=== PATIENT | male | born 1995 | race Caucasian/White ===

== ENCOUNTER 2017-02-06 01:26 | Inpatient (IN) | payer MEDICAID, OTHER ==
[2017-02-06] MEDS ORDERED: LORazepam 2 MG/ML SYRINGE IM STA (03:27)
[2017-02-06] MEDS ORDERED: ZIPRASIDONE 20 MG VIAL IM STA (03:27)
--- NOTE | 2017-02-06 03:29 | ED ---
Psych HPI - General Chief Complaint: Psychiatric Symptoms Stated Complaint: Mental Health Time Seen by Provider: 02/06/17 01:51 Source: patient Mode of arrival: EMS Limitations: physical limitation (Patient not cooperative with history) - History of Present Illness Initial Comments: This patient is a 21-year-old man brought in by police to be evaluated for suicidal ideation. The patient had reportedly made suicidal statements and then not gone up on the roof of his home and spent the next 4 hours there. He had to be brought down by police. The patient here is confrontational and not forthcoming about the events. MD Complaint: suicidal ideation -: hour(s) Associated Psychiatric Symptoms: suicidal ideation Quality: constant - Related Data Home Medications Medication Instructions Recorded Confirmed No Known Home Medications [No 10/29/14 10/29/14 Known Home Medications] Allergies Allergy/AdvReac Type Severity Reaction Status Date / Time pertussis vaccine,adsorbed Allergy Unknown Verified 10/29/14 08:49 Review of Systems ROS Statement: Those systems with pertinent positive or pertinent negative responses have been documented in the HPI. ROS Other: All systems not noted in ROS Statement are negative. Limitations: ROS unobtainable due to patients medical condition Past Medical History Past Medical History: Asthma History of Any Multi-Drug Resistant Organisms: None Reported Past Surgical History: No Surgical Hx Reported Past Psychological History: No Psychological Hx Reported Smoking Status: Current every day smoker Past Alcohol Use History: Occasional Past Drug Use History: None Reported General Exam Limitations: no limitations General appearance: alert, in no apparent distress Head exam: Present: atraumatic, normocephalic Eye exam: Present: normal appearance. Absent: scleral icterus, conjunctival injection Respiratory exam: Present: normal lung sounds bilaterally. Absent: respiratory distress, wheezes, rales, rhonchi, stridor Cardiovascular Exam: Present: regular rate, normal rhythm, normal heart sounds. Absent: systolic murmur, diastolic murmur, rubs, gallop GI/Abdominal exam: Present: soft. Absent: distended, tenderness, guarding, rebound, mass Extremities exam: Absent: pedal edema Back exam: Present: normal inspection. Absent: CVA tenderness (R), CVA tenderness (L) Neurological exam: Present: alert, normal gait Skin exam: Present: warm, dry, intact, normal color, abrasion (Multiple abrasions to the torso) Course Vital Signs 02/06/17 01:30 Temperature 97.7 F Pulse Rate 85 Respiratory 16 Rate Blood Pressure 154/81 O2 Sat by Pulse 98 Oximetry Procedures - Restraint - Face to Face Restraint Occurrence 1 Patient's Immediate Situation: Endangers others' safety, Endangers staff safety , Violent behavior Patient's Reaction to the Intervention: Hostile, Belligerent, Aggressive Patient's Medical & Behavioral Condition: Awake, Agitated, Paranoid, Bizarre behavior Need to Continue or Terminate Restraint or Seclusion: Continue Face to Face Eval of Restraint Date: 02/06/17 Face to Face Eval of Restraint Time: 03:10 Disposition Clinical Impression: Psychosis, Suicidal ideation Disposition: ADMITTED IP TO THIS [facility] Condition: Fair
[2017-02-06] MEDS ORDERED: LORazepam 1 MG TAB PO PRN (09:22)
[2017-02-06] MEDS ORDERED: MAG HYDROX/AL HYDROX/SIMETH 30 ML CUP PO PRN (09:22)
[2017-02-06] MEDS ORDERED: ACETAMINOPHEN TAB 325 MG TAB PO PRN (09:22)
[2017-02-06] MEDS ORDERED: MAGNESIUM HYDROXIDE 2,400 MG/10 ML CUP PO PRN (09:22)
--- NOTE | 2017-02-06 13:24 | CONS ---
DATE OF CONSULTATION: HISTORY OF PRESENT ILLNESS: This is a 21-year-old male who was brought to the hospital by his father who found him on the roof wearing his underwear only. Patient was suicidal threat and was brought into the emergency department. Patient initial workup revealed normal findings. The patient was admitted to the psych floor. REVIEW OF SYSTEMS: Patient is very difficult to obtain any information. ALLERGIES: He said that he is allergic to PERTUSSIS VACCINE. MEDICATION: None. PAST SURGICAL HISTORY: Nothing. SOCIAL HISTORY: Patient denies smoking or alcohol abuse. Said that he smokes marijuana only. FAMILY HISTORY: Negative. PHYSICAL EXAMINATION: VITAL SIGNS: Reviewed and stable. LUNGS: Clear to auscultation bilaterally. HEART: Normal S1, S2. ABDOMEN: Soft, no tenderness, positive bowel sounds in all 4 quadrants. LOWER EXTREMITY: No edema. PSYCH: Alert, awake, following commands, poor historian. SKIN: No rash. NEURO: No focal deficit. Gait stable. IMAGING AND LABS: Reviewed. ASSESSMENT AND PLAN: 1. Psychosis. Will have psychiatrist evaluate the patient. 2. Marijuana, counseled regarding use and consult child protective services social worker.
--- NOTE | 2017-02-06 18:29 | P.HP ---
Psychiatric H&P - . H&P Date: 02/08/17 History & Physical: Allergies Allergy/AdvReac Type Severity Reaction Status Date / Time pertussis vaccine,adsorbed Allergy Unknown Verified 02/06/17 10:21 Vital Signs Temp 98.0 F 02/06/17 10:07 Pulse 76 02/06/17 10:07 Resp 18 02/06/17 10:07 BP 122/70 02/06/17 10:07 Pulse Ox 98 02/06/17 09:13 Intake & Output 02/05/17 02/06/17 02/06/17 18:59 06:59 18:59 Weight 69.541 kg Laboratory Last Values Urine Opiates Screen Not Detected (NotDetected) 02/06/17 08:50 Ur Oxycodone Screen Not Detected (NotDetected) 02/06/17 08:50 Urine Methadone Screen Not Detected (NotDetected) 02/06/17 08:50 Ur Propoxyphene Screen Not Detected (NotDetected) 02/06/17 08:50 Ur Barbiturates Screen Not Detected (NotDetected) 02/06/17 08:50 U Tricyclic Antidepress Not Detected (NotDetected) 02/06/17 08:50 Ur Phencyclidine Scrn Not Detected (NotDetected) 02/06/17 08:50 Ur Amphetamines Screen Not Detected (NotDetected) 02/06/17 08:50 U Methamphetamines Scrn Not Detected (NotDetected) 02/06/17 08:50 U Benzodiazepines Scrn Not Detected (NotDetected) 02/06/17 08:50 Urine Cocaine Screen Not Detected (NotDetected) 02/06/17 08:50 U Marijuana (THC) Screen Detected (NotDetected) H 02/06/17 08:50 02/06/17 18:05 IDENTIFYING DATA: 21-year-old single male patient. HPI: Patient admitted to the inpatient psychiatric unit [facility] on an involuntary basis. Petition was done by police shift commander stating "subject previously barricaded himself in his room with a knife and threatened to kill himself. subject stayed on roof in 40 weather for over 4 hours with barely any clothes. Said he was "staying until he dissolved into roof." Patient reports that yesterday he was on the roof. Says he wouldn't come down and his dad was there and then the police were there and they strapped him to a gurney and lowered him down the latter with the help of the fire department. Patient states that he was trying to meditate and waiting for sunrise. he relays that they said he was up there for 4 hours. He says he has done this more than a couple of previous times. When asked about stressors in life he says that there is no insulation in their house and it's really old. When I ask him regarding his mood lately he says "fine." When asked regarding depression he states that this happens all the time. When asked regarding in terms of thoughts of suicide he says the last time he made a statement about suicide was today. He says that he would do it if he really wanted to. He names off a bunch of ways that he could possibly do it on the unit but says that doesn't mean that he is going to. He relates that he told a family member that he would kill himself at 22 years old, makes reference to that being a lie but says if he doesn't get out of here before he's 22 it's not. In terms of barricaded himself in his room with a knife he says that was more than a year ago. Towards the end of session he inquires "what happens if I kill myself here." He denies any recent thoughts of harm to self or others, towards the end of the session does make a threatening type remark related to a staff who may have been involved in giving him an injection. Per chart history he was restrained in the emergency room and given injections for agitated behavior as well as threatening harm to staff and himself. He is placed on one-to-one precautions earlier today related to concerns regarding suicidal statements. PAST PSYCHIATRIC HISTORY: Patient states he's had more than one prior inpatient psychiatric admission. He says they didn't put him on medications but they give him injections. He does make reference to being treated for ADHD and receiving sleep medications in the past. PMH: History of asthma ALLERGIES: Pertussis vaccine MEDICATIONS: Tylenol when necessary, Maalox when necessary, Ativan when necessary, milk of magnesia when necessary, Geodon when necessary CHEMICAL DEPENDENCY HISTORY: Marijuana as often as he can, daily; shrooms not often. FAMILY PSYCHIATRIC HISTORY: Relays he doesn't care about their problems FAMILY CHEMICAL DEPENDENCY HISTORY: None known at this time SOCIAL HISTORY: He lives with his dad. Says he has 4 sisters and one brother. No current work or school. No current relationship. Says she's never been and does not have any children. Says he needs 2 credits to graduate from high school but is not looking at finishing it. MENTAL STATUS EXAM: He is alert and overall cooperative with the interview. He is seen with male one-to-one staff present. Regarding his mood he says "I want to fucking go home." His thought processes show some disorganization. He relates that he does hear his thoughts from the past and future. He denies any recent thoughts of harm to self or others, towards the end of the session he does make some references to suicide as above in HPI, he inquires "what happens if I kill myself here." He also made a threatening type remark related to a staff who may have been involved in giving him an injection. His insight is limited, judgment is impaired. Cognitively appears very grossly intact. I do not note any significant disorientation or memory disturbance. STRENGTHS/WEAKNESSES: Strengths-some support system; weaknesses-coping skills INTELLECTUAL FUNCTIONING: Average IMPRESSIONS: Unspecified psychotic disorder; rule out primary psychotic disorder versus any component of substance-induced; unspecified depressive disorder; cannabis use disorder; rule out hallucinogenic use disorder PLAN: Patient is admitted to the inpatient psychiatric unit [facility] involuntary basis. Second clinical cert done for involuntary commitment. Baseline laboratory workup will be done the patient and medical consultation will be ordered. I discussed psychotropic medication with the patient including Abilify and Zoloft which he refuses at this time. Discussed with him regarding giving further consideration to psychotropic medication use. We do have Ativan and Geodon ordered as needed. He will continue on a one to one at this time. We'll monitor regarding any thoughts of harm to self or others and monitor for any psychosis symptoms. Estimated length of stay is 7-10 days. Prognosis is guarded. We'll continue to cover this patient for Dr. York through the weekend and he will initiate care on Wednesday.
[2017-02-06] MEDS ORDERED: WATER FOR INJECTION, STERILE 10 ML IV ONE (23:34)
[2017-02-06] MEDS: ZIPRASIDONE 20 MG VIAL IM PRN (23:35)
[2017-02-06] MEDS: LORazepam 2 MG/ML SYRINGE IM PRN (23:35)
[2017-02-06] MEDS ORDERED: ZIPRASIDONE 20 MG VIAL IM ONE (23:35)
[2017-02-07 08:37] LABS: Basophils % (A) 0 %; CH 29.7; CHCM 32.7; Eosinophils # (A) 0.1 k/uL (0-0.7); Eosinophils % (A) 2 %; HCT 46.9 % (39.0-53.0); HDW 2.28; HGB 15.2 gm/dL (13.0-17.5); Luc # (Auto) 0.19; Luc % (Auto) 3; Lymphocytes # (A) 2.1 k/uL (1.0-4.8); Lymphocytes % (A) 33 %; MCH 29.6 pg (25.0-35.0); MCHC 32.4 g/dL (31.0-37.0); MCV 91.3 fL (80.0-100.0); Mean Platelet Volume 7.8; Monocytes # (A) 0.4 k/uL (0-1.0); Monocytes % (A) 7 %; Neutrophils # (A) 3.7 k/uL (1.3-7.7); Neutrophils % (A) 56 %; RBC 5.14 m/uL (4.30-5.90); RDW 12.9 % (11.5-15.5); WBC 6.5 k/uL (4.0-11.0); WBC (Perox) 6.51
[2017-02-07 08:58] LABS: ALT 19 U/L (21-72); AST 39 U/L (17-59); Alkaline Phosphatase 71 U/L (38-126); Anion Gap 12 mmol/L; Blood Urea Nitrogen 16 mg/dL (9-20); Calcium 9.7 mg/dL (8.4-10.2); Carbon Dioxide 27 mmol/L (22-30); Chloride 104 mmol/L (98-107); Glucose 83 mg/dL (74-99); Non-African American GFR(MDRD) >60 (>60 ml/min/1.73 sqM); Potassium 4.1 mmol/L (3.5-5.1); Sodium 143 mmol/L (137-145); Total Bilirubin 1.1 mg/dL (0.2-1.3); Total Protein 7.3 g/dL (6.3-8.2)
[2017-02-07] MEDS: LORazepam 2 MG/ML SYRINGE IM PRN ×2 (12:24→20:13)
[2017-02-07] MEDS: ZIPRASIDONE 20 MG VIAL IM PRN ×2 (12:24→20:13)
--- NOTE | 2017-02-07 13:01 | P.PN ---
Progress Note - Text Interval history: Patient seen in [facility] today in for Dr. York. He is currently seen and evaluated in 4-point restraints. Per staff he was becoming agitated and became combative and was given IM when necessary psychotropic medication. Patient relays that he was calm and didn't need the injection. He relays that he just wants to go home and eat and relays that he is not going to eat here. Mental status exam: Patient is evaluated in 4-point restraints. He denies any auditory or visual hallucinations. His mood is agitated. He yells out loudly at one point during the evaluation regarding wanting to go home. He denies any current thoughts of harm to self or others. His affect overall is restricted. Plan: Patient has Geodon and Ativan ordered as needed for agitation. We will monitor his status and monitor for any agitation. Continue to monitor regarding any thoughts of harm to self or others. Dr. York or his colleague will initiate care of this patient starting tomorrow. Maintain 4-point restraints at this time for safety. We'll continue to assess need for restraints.
[2017-02-08] MEDS ORDERED: WATER FOR INJECTION, STERILE 10 ML IV ONE (09:01)
[2017-02-08] MEDS: LORazepam 2 MG/ML SYRINGE IM PRN (09:35)
[2017-02-08] MEDS: ZIPRASIDONE 20 MG VIAL IM PRN (09:36)
[2017-02-08] MEDS ORDERED: HALOPERIDOL LACTATE 5 MG/ML 1 ML VIAL IM PRN (12:19)
--- NOTE | 2017-02-08 13:00 | PN ---
DATE OF SERVICE: 02/08/2017 CHIEF COMPLAINT: The patient was admitted due to odd behavior with agitation. He was threatening to kill himself. He had barricaded himself in a room. He ended up on the roof of his father's house in 40 degree weather for over 4 hours with barely any clothes on. He was making delusional statements. He required emergency intervention. He was admitted on involuntary basis. INTERVAL HISTORY: The patient has been doing fair. Yesterday afternoon at 13:45, the patient required 4-point restraints due to quite severe behavior with agitation, combativeness and not able to respond to staff support. He made threats. Later in the day, he was resistant to care and support. He had some episodes of pacing and could get fairly agitated. At times, he was quite belligerent. He did receive some IM medications, which seemed to help calm him. He received a combination of Geodon and Ativan IM. Later in the evening, he was characterized as "extremely disorganized, confused and violent". He was that quiet through the night and was not making any statements about self harm. This morning he was disorganized. At meals he was apparently trying to take food off of other peoples trays. He used some profane language. He has been on one-to-one. Things seem to quiet a little for him as the morning when on. Today he tells me that his main interest is being discharged. He feels that he could do better if he was at home. He was not able to provide much explanation as to the behavior that he was having that was disruptive. He made repeated statements that his only goal is "to continue living". He was not able to say much about what may lead him towards some of the difficult behavior he was having. He was unable to say much about aspirations or goals that he has. He has not had change in his general health. He tolerates his psychotropic medications. MENTAL STATUS: Patient initially sat with his head quite down and gave no eye contact. After a few minutes with a little coaxing, he was able to sit up and give better eye contact. He was cooperative. Initially he did not say much though as the interview went on he was more responsive. He sat without restlessness. He had a quiet manner. He smiled now and then. He had a calm manner. He was somewhat vague as far as providing any information about his situation. When I reviewed expectations that would help in his wish to discharged, he seemed to express good understanding of that. It was not clear whether he would be able to follow through. He had a somewhat blunted affect. He had a rather passive manner. He did not appear to be anxious or distressed. His mood was quiet. ASSESSMENT: I will continue the current diagnosis and treatment plan. We will continue to make efforts to engage the patient in individual and group therapeutic activities. I will initiate Haldol. I offered the patient oral medications, which he declined. I will start the patient on Haldol 10 mg twice a day IM. We will make an effort to set up a family meeting with his father as soon as possible for further treatment and discharge planning. JANIE
[2017-02-08] MEDS: HALOPERIDOL LACTATE 5 MG/ML 1 ML VIAL IM SCH ×2 (13:28→20:44)
[2017-02-09] MEDS: HALOPERIDOL LACTATE 5 MG/ML 1 ML VIAL IM SCH ×2 (10:12→21:34)
[2017-02-09] MEDS ORDERED: BENZTROPINE 2 MG/2 ML AMP IM PRN (10:14)
[2017-02-09] MEDS ORDERED: BENZTROPINE MESYLATE 1 MG TAB PO PRN (10:14)
[2017-02-09] MEDS ORDERED: BENZTROPINE 2 MG/2 ML AMP IM STA (11:29)
--- NOTE | 2017-02-09 11:49 | P.PN ---
Progress Note - Text Interval history: The patient is found in the [facility] she follows me to an interview room. He was admitted over the weekend for acute symptoms of psychosis. The patient was petitioned and decided not to defer during his deferral conference. He is refusing oral medication and was started on Haldol 10 mg twice daily. The patient has been restrained over the weekend for aggressive behavior. He was on a one-to-one for safety reasons but that was discontinued. The patient has no spontaneous speech today other than to state he wants to go home. He becomes acutely tearful when making that statement. He reports he was on the roof of their family rental home prior to coming to the hospital but provides no explanation why. It appears that that behavior was motivated by a psychotic thought content in reviewing the psychiatric assessment. The patient reports no muscle tightening or pain but he appears to be experiencing a dystonic reaction. Mental status exam: The patient is alert he keeps his head turned always to the left when asked if he has any neck stiffness he did denies but his head slowly moves back to the left. While seated in the chair he slowly arches his back again indicating possible dystonia. Eye contact is poor he keeps his eyes closed his lower lip is protruded. He had just finished eating a granola bar and isabelle crackers and was picking that food out of his teeth during the session. He does not describe his current mood. He demonstrates psychomotor slowing. He is dressed in his own clothing but appears disheveled his hair is sticking up grooming is poor. It's likely he is experiencing symptoms of psychosis but he denies any auditory or visual hallucinations he endorses no specific delusions as we reviewed several types. Insight and judgment appears to be impaired. Plan: I will reduce the Haldol to 5 mg twice daily, he's refusing any oral medication although we discussed options for oral antipsychotic medication including an oral dissolvable form. We will monitor for agitation. He will be given an injection of Cogentin 2 mg now and we will have Cogentin available as needed. We will look for a second generation antipsychotic alternative if possible. It seems he was given Geodon IM and it was felt to be ineffective over the weekend. We will need to review old records if available and contact family if possible to discuss further treatment planning. The patient does have a court hearing scheduled for Wednesday. Vital signs reviewed labs reviewed. Urine drug screen was positive for marijuana upon admission.
--- NOTE | 2017-02-10 09:21 | P.PN ---
Progress Note - Text Interval history: The patient is found in the [facility] she follows me to an interview room. He reports he slept approximate 5 hours last night he reports appetite is stable. He states that he feels much better with the Cogentin and states here she was experiencing stiffness which we discussed was a dystonic reaction to the Haldol. We did reduce the Haldol dose and he has Cogentin as needed. He gave me permission to speak with his father. His father states that the patient has had weird thoughts and behaviors all during childhood. He shares that the patient's mother is schizophrenic. He reports that before this admission the patient had torn up the linoleum floor in their kitchen and had removed drywall from another portion of the home without his father's approval. The patient just before presentation was on the roof of the house for 5-6 hours wearing a T-shirt and the temperature was approximately in the 30s. His father states that he called the police twice before they came out to remove him from the roof. The patient states he was trying to be closer to the clouds and this billy and he was doing pushups on the roof to stay warm. The patient endorses episodes of dj vu. He reports when he talked to his father on the phone recently the static seem to be another voice but he could not understand what was being said. Mental status exam: The patient is alert he seated calmly there is no signs of dystonic reaction. Affect is more expressive he demonstrates some smiling. Eye contact is staring in nature. He is dressed in hospital gowns he has visible tattoos on his upper extremities. He is fairly guarded and not forthcoming with answers to questions. He states he does have dj vu experiences. He states he is not sure if he has special bateman. He seems to have some paranoid thoughts but does not endorse them. He repeatedly states that he sober and needs to go home. He lacks insight into the danger associated with his behavior by her to coming to the hospital. He is reporting no suicidal or homicidal thoughts. There are no abnormal involuntary movements at this time. Insight and judgment are poor. Plan: The patient will continue on Haldol 5 mg IM twice a day. He has not been refusing that but does refuse the oral form of the medication. We discussed that there are several alternatives to Haldol and that we could reduce his dystonic reaction risk with an atypical antipsychotic. We discussed that there are Depo forms of other antipsychotics. At this point he refuses to take anything else but intramuscular Haldolbecause it is reducing some of his aggressive behavior we will continue on that medication scheduled that way unless he refuses. He has court scheduled for Wednesday. We will monitor him for safety and provide reality orientation when possible.
[2017-02-10] MEDS: HALOPERIDOL LACTATE 5 MG/ML 1 ML VIAL IM SCH (09:34)
[2017-02-10] MEDS ORDERED: HALOPERIDOL LACTATE 5 MG/ML 1 ML VIAL IM PRN (10:44)
[2017-02-10] MEDS: HALOPERIDOL 5 MG TAB PO SCH (20:44)
[2017-02-11] MEDS: HALOPERIDOL 5 MG TAB PO SCH ×2 (08:52→21:36)
--- NOTE | 2017-02-11 09:45 | P.PN ---
Progress Note - Text Interval history: The patient is found in his room he follows me to an interview room. He reports he was able to sleep last night appetite is stable. During the day the patient decided he would prefer taking the pill form of Haldol versus the injectable form. This morning he is open to initiating a different antipsychotic and we discussed using Abilify. We are hoping to reduce his risk of extrapyramidal symptoms by switching to a second generation medication and also the Abilify comes in and injectable form as a depot. He still does not believe he requires medication and has little insight into his presenting symptoms but has decided to become more compliant. We discussed the court proceeding in detail that will occur tomorrow morning. Again I did have the opportunity to speak with his father at length yesterday morning. Mental status exam: The patient is alert he seated calmly eye contact is staring in nature. He has little affective change. He does not respond to humor. He initiates no conversation but provides brief answers to questions asked. He has a disheveled appearance hygiene is fair. He is dressed in his own clothing wearing a T-shirt and pajama bottoms. He does have visible tattoos on his right upper extremity. He continues to endorse no symptoms as he is trying to facilitate a discharge. His affect still appears odd it is likely he continues to experience a delusional thought content. There are no abnormal involuntary movements he does not appear to have any dystonia. He reports no suicidal or homicidal ideation. Insight and judgment is impaired. He demonstrates no verbal or physical aggressiveness. Plan: The patient will continue the Haldol 5 mg twice daily I will initiate Abilify 10 mg daily as we will plan to cross taper off of Haldol onto Abilify ultimately using Abilify maintena if he is able to tolerate the medication orally. He does have a court hearing tomorrow. We will continue to monitor him for safety. He requires continued psychiatric hospitalization because of his current psychotic symptoms causing psychosocial dysfunction. Vital signs reviewed.
[2017-02-11] MEDS: ARIPiprazole 10 MG TAB PO SCH (09:46)
[2017-02-11 10:50] LABS: Appearance,Urine Clear (Clear); Bilirubin,Urine Negative (Negative); Glucose,Urine (UA) Negative (Negative); Ketones,Urine Negative (Negative); Leukocyte Esterase,Urine Negative (Negative); Mucus,Urine Rare /hpf; Nitrite,Urine Negative (Negative); PH, Urine 6.5 (5.0-8.0); Particle Count 1300; Protein,Urine 1+ (Negative); Specific Gravity,Urine 1.018 (1.001-1.035); UA Billing (MACRO vs. MICRO) MICRO; Urobilinogen,Urine <2.0 mg/dL (<2.0); WBC,Urine 1 /hpf (0-5)
--- NOTE | 2017-02-12 10:55 | P.PN ---
Progress Note - Text Interval history: The patient is found in the hallway he follows me to an interview room. He reports his mood is fine he states he is interested in knowing when he will be discharged. We did have court this morning a treatment order was granted. We discussed that our plan is to transition off of Haldol onto Abilify and ultimately used Abilify maintena. He continues to state he does not need psychiatric treatment but is willing to comply to facilitate a discharge. Mental status exam: The patient is alert he seated calmly he is casually dressed in the same clothing. Hygiene is adequate. Speech is fluent spontaneous nonpressured. He reports his mood is "fine". Affect is bland. He demonstrates no abnormal involuntary movements. He is reporting no suicidal or homicidal ideation intent or plan. Insight and judgment limited. He demonstrates no physical or verbal aggressiveness during the session. He was able to tolerate the court hearing appropriately. He endorses no symptoms as we review several types. It is likely he continues to experience delusional thought. He offers no spontaneous speech and simply briefly answers questions asked. Plan: The patient's will continue on the Abilify we will increase the dose to 20 mg daily Haldol will be reduced to 5 mg at bedtime. A Haldol when necessary is still available. We will continue to monitor him for safety and encourage his participation in the milieu. Vital signs reviewed.
[2017-02-12] MEDS: ARIPiprazole 10 MG TAB PO SCH (11:24)
[2017-02-12] MEDS: HALOPERIDOL 5 MG TAB PO SCH ×2 (11:25→20:33)
[2017-02-13] MEDS: HALOPERIDOL 5 MG TAB PO SCH (20:27)
--- NOTE | 2017-02-14 10:48 | PN ---
DATE OF SERVICE: 02/13/2017 CHIEF COMPLAINT: Patient was admitted due to odd behavior with agitation. He was threatening to kill himself. He was making delusional statements. He was admitted on involuntary basis. INTERVAL HISTORY: Patient has been doing fairly well. He seems to be making progress. His mood is improved. He has been cooperative. He apparently was given a 90 day treatment order. He does not seem to have too many issues with that. He has been taking oral medications. He has no complaints with his medications. He sleeps well at night. He is not sedated in the day and comes out in the day area. He will attend group occasionally, though misses more than he makes. He will interact a little with others. He has not had change in his general health. He tolerates his psychotropic medications. MENTAL STATUS: Patient gave good eye contact. Psychomotor activity was a little restless. Speech was clear. He answered questions with direct responses. He was not too spontaneous or interactive. His affect was a little constricted, though not significantly so. He was friendly. His mood was even. He smiled some he did not appear to be distressed. ASSESSMENT: I will continue the current diagnosis and treatment plan. We will continue to make efforts to engage the patient in individual and group therapeutic activities. He will continue psychotropic medications the same, including Abilify 20 mg a day, Haldol 5 mg a day along with a p.r.n. medications. He also has a p.r.n. Cogentin. Patient has not complained of any tremors, muscle tension or restlessness. Will continue to focus on stabilization and discharge planning. The patient says that he is hopeful to be discharged early in the week.
[2017-02-14] MEDS: LORazepam 2 MG/ML SYRINGE IM PRN (19:04)
[2017-02-14] MEDS ORDERED: HALOPERIDOL LACTATE 5 MG/ML 1 ML VIAL IM STA (19:08)
[2017-02-14] MEDS ORDERED: LORazepam 2 MG/ML SYRINGE IM STA (19:08)
[2017-02-14] MEDS ORDERED: HALOPERIDOL LACTATE 5 MG/ML 1 ML VIAL IM PRN (19:41)
[2017-02-14] MEDS ORDERED: LORazepam 2 MG/ML SYRINGE IM PRN (19:42)
[2017-02-14] MEDS ORDERED: HALOPERIDOL 5 MG TAB PO PRN (19:44)
[2017-02-14] MEDS ORDERED: diphenhydrAMINE 50 MG/ML 1 ML VIAL IM ONE (20:10)
[2017-02-14] MEDS ORDERED: LORazepam 2 MG/ML SYRINGE IM ONE (20:10)
[2017-02-14] MEDS ORDERED: HALOPERIDOL LACTATE 5 MG/ML 1 ML VIAL IM ONE (20:10)
--- NOTE | 2017-02-15 06:21 | PN ---
DATE OF SERVICE: 02/14/2017 CHIEF COMPLAINT: The patient was admitted due to odd behavior with agitation. He was threatening to kill himself. He was making delusional statements. He was admitted on an involuntary basis. INTERVAL HISTORY: Patient has been doing fairly well overall. He had a quiet evening last night. He slept fairly well. Today, he has been up and about. He has been attending groups. He does not participate too much in groups and is more a passive observer. He has been appropriate in his manner. He can be sociable at times, though he does not really interact too much with others. He will spend some time in his room. He will wander at times. He says that his only complaint today is headaches, which he has on and off and has been having over the last few days. I asked him if he wanted to take any medicine for that such as ibuprofen. He declined. His only focus is when he will be getting out of the hospital. I advised him since he seems to be doing better I would anticipate, Dr. York working in the direction of discharge fairly soon. Patient himself was not certain about what discharge or follow-up plans will be put in place. He has not had change in his general health beyond the headache complaint. He seems to tolerate his psychotropic medications. He has not had any complaint of tremor, abnormal movements or rigidity. MENTAL STATUS: Patient gave good eye contact. Psychomotor activity was normal. He answered questions with brief 1 or 2 word responses. He was not spontaneous or interactive. He seemed relaxed. He made a few social comments. He had a quiet mood. He did not appear to be distressed. ASSESSMENT: I will continue the current diagnosis and treatment plan. We will continue psychotropic medications the same. Patient appears to be making progress. We will focus on coordinating with outpatient resources for follow-up care.
--- NOTE | 2017-02-15 10:15 | PN ---
DATE OF SERVICE: 02/14/2017 at 2000 hours. The patient is seen due to an episode of agitation, aggressive behavior and placement in restraints. The patient was fairly calm and appropriate throughout the day then this evening around 7 p.m. he got into an agitated state. There were no clear precipitants. He was threatening. He got quite agitated he started hitting his head on the desk and wall. He was not responding to staff support and encouragement to calm himself, to express his concerns. Mr. brian was called. He was quite combative with biting, kicking and continuously fighting staff who were containing him to prevent injury. He was placed in 4-point leather restraints. At 1910, he received Haldol 10 mg and Ativan 2 mg IM. While in restraints, he had continuous monitoring. He was able to slowly calm down about 45 minutes into restraints the nurse that was assisting him noted that he still seemed to be in a tense irritable state. The patient made the statements that his acting out was all about getting discharge. He was demanding to be discharged and asking when and how he could be discharge. When I saw him about 30 minutes in restraints, he was calmer. He was able to respond to questions. His answers were limited. He did not elaborate on any issues though asked questions several times how and when he can be discharged. I asked him about being released from restraints he said he would contract for safety of self and others though he wanted a contract that he would be able to read all the details. For the latter half of restraints, the did not seem to resist or fight against the restraints at all. He remained calm. He was oriented. He did not voice any complaints in regards to having the restraints on his wrists and ankles. He had quiet respirations. His systolic blood pressure was up to 152/72. His pulse was 115. This was at 1945. ASSESSMENT: Patient was placed in restraints due to severe agitation with self-harmful behavior, hitting his head against the desk and wall. He was not able to respond to staff support. He has shown some response to medication. I will order additional medications including Haldol 10 mg, Ativan 2 mg and Benadryl 100 mg IM to be given one hour after his first dose of medications. Once he has had time for absorption and response to medication, which should be in the range of 10 to 20 minutes, we look to release him from restraints. I reviewed issues with nursing staff. We will continue to monitor and make efforts to release him from restraints as soon as he appears to reasonably stable and calm. JANIE
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
[2017-02-15] MEDS ORDERED: ARIPiprazole 10 MG TAB PO ONE (11:30)
--- NOTE | 2017-02-16 09:45 | P.PN ---
Progress Note - Text Interval history: The patient is found in his room he follows me to an interview room. He continues to be on one-to-one supervision for his previous impulsive aggressive behavior. He again expresses his desire to be discharged. We discussed his recent aggressive behavior and discussed a plan of him verbalizing feelings of discontent rather than acting them out first. He does endorse some paranoid thinking stating he hasn't called his dad because he doesn 't like using the phone as he feels that the conversation could be recorded. He reports sleeping throughout the night he states appetite is stable. He states that he has been selectively attending some groups. He has no questions regarding his medication. He is endorsing no headaches with the Abilify. Mental status exam: The patient is seated calmly eye contact is appropriate he has a staring eye contact a disheveled appearance hygiene seems fair. He is dressed in his own clothing. He maintains a bland affect however he does have some appropriate spontaneous smiling and laughter when discussing his upcoming birthday. He spontaneously states "I know I can't have alcohol" in reference to him turning 22 soon. He does continue to have a paranoid thought content. He is endorsing no auditory or visual hallucinations. He is seated calmly in the chair he demonstrates no abnormal involuntary movements. He demonstrates no verbal or physical aggressiveness. He is oriented. Insight and judgment are limited. Plan: The patient will continue on the Abilify 30 mg daily. If it appears that the Abilify is still controlling symptoms of psychosis we will proceed with injecting Abilify maintena. He is encouraged to speak with his father we will look into having social work schedule a support meeting. We discussed coping skills he can utilize on the mental health unit to deal with stressors versus physically acting out. Vital signs reviewed. He requires continued psychiatric hospitalization.
[2017-02-16] MEDS: ARIPiprazole 15 MG TAB PO SCH (09:57)
--- NOTE | 2017-02-17 08:33 | P.PN ---
Progress Note - Text Interval history: The patient is found in his room he follows me to an interview room. He reports that he slept last night appetite remains stable. He would characterize his mood as being mostly bored. He did call his father and was able to speak to 2 sisters. He felt close conversations went well. He anticipates family will visit tonight. He was asked to recall the goals we set for him while on the mental health unit and he was able to recall those. He is endorsing no feelings of anger or irritability. He is reporting no thoughts of self-harm or harm to others. We discussed that his aggressive episode on Wednesday was approximate to visiting and he says there was no causal link. He plans to visit with family this evening and does not anticipate becoming agitated. Staff report no aggressive behavior overnight. He continues to comply with medication. Mental status exam: The patient is seated calmly in his chair. He is dressed in his own clothing is mildly disheveled hygiene is adequate. There is no follow odor. Eye contact is appropriate. His affect is more appropriate and expressive. He demonstrates appropriate smiling and laughter. He is reporting no suicidal or homicidal ideation intent or plan. He is endorsing no aggressive thoughts towards his father or siblings. He denies having any current auditory or visual hallucinations. He reports feeling safe. Yesterday he spoke of having concern of speaking on the phone as the conversation could be recorded. He was assured that we do not record phone calls. Since he did call family this may be evidence that his delusional thought is remitting. He demonstrates no verbal or physical aggressiveness. He is oriented to person place and date. No evidence of involuntary abnormal movements. Plan: The patient will continue on his current medication we will likely initiate Abiliflorena maintena tomorrow. We're anticipating a discharge towards the end of the week if he is able to continue to display appropriate behavior. It does seem that his symptoms of psychosis are slowly remitting. We will look to see how visiting goes this evening. Vital signs reviewed.
[2017-02-17] MEDS: ARIPiprazole 15 MG TAB PO SCH (10:28)
[2017-02-18] MEDS ORDERED: ARIPiprazole 400 MG VIAL IM ONE (09:05)
--- NOTE | 2017-02-18 09:09 | P.PN ---
Progress Note - Text Interval history: The patient is found in his room he follows me to an interview room. He states that his mood continues to improve. He is focused on wanting to be discharged. Social work held a family meeting involving the patient's father today. I discussed our plan of initiating Abilify maintena with the patient and he is agreeable. He is agreeable to following up with community mental health services upon discharge. We discussed having act team involvement. The patient reports he sleeping at night appetite is stable. Mental status exam: The patient is alert he seated calmly eye contact is appropriate speech is fluent. His affect is appropriately bright he demonstrates appropriate range of affect including smiling and laughter. He does have some spontaneous speech. He reports no suicidal or homicidal ideation intent or plan. He is endorsing no auditory or visual hallucinations. He is reporting no specific delusions however there may still be some residual paranoid thought he is not reporting. He is seated calmly in the chair no abnormal involuntary movements noted. Insight and judgment improving. He is oriented to person place and date. He demonstrates no verbal or physical aggressiveness. Plan: The patient will continue on the oral Abilify 30 mg daily, we will initiate Abilify maintena 400 mg today. We will continue to monitor him for safety. We will likely discharge him tomorrow if he demonstrates continued improvement and clinical stability. Vital signs reviewed.
[2017-02-18] MEDS: ARIPiprazole 15 MG TAB PO SCH (09:30)
[2017-02-18 14:59] VITALS: BMI 19.9
[2017-02-19 05:40] VITALS: BP 126/84; PULSE 88; RESP 18; TEMP 98
[2017-02-19] MEDS: ARIPiprazole 15 MG TAB PO SCH (08:40)
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
== END 2017-02-19 13:17 | disposition home or self-care (01) | DRG 885 ==
LOC: EC 01:26 → 3MHU 09:21
PROVIDERS: ADMIT Psychiatry & Neurology Psychiatry; ATTEND Psychiatry & Neurology Psychiatry
DX: F20.9 Schizophrenia, unspecified (principal); R45.851 Suicidal ideations; F12.10 Cannabis abuse, uncomplicated; J45.909 Unspecified asthma, uncomplicated; F90.9 Attention-deficit hyperactivity disorder, unspecified type; Z88.7 Allergy status to serum and vaccine; Z78.1 Physical restraint status
CPT/HCPCS: 80053; 80306; 81001; 82075; 84443; 85025; 96372; 99285

== ENCOUNTER 2017-04-30 15:58 | Emergency (ER) | payer OTHER ==
[2017-04-30] MEDS ORDERED: TETANUS-DIPHTHERIA TOX (PF) 0.5 ML VIAL IM ONE (17:19)
[2017-04-30] MEDS ORDERED: CEPHALEXIN 500 MG CAP PO STA (17:19)
--- NOTE | 2017-04-30 17:23 | ED ---
Skin/Abscess/FB HPI - General Chief complaint: Skin/Abscess/Foreign Body Stated complaint: Fishing lure stuck in hand Time Seen by Provider: 04/30/17 16:57 Source: patient Mode of arrival: ambulatory Limitations: no limitations - History of Present Illness Initial comments: Patient is a 22-year-old male presenting to the emergency department with chief complaint of a fishhook stuck in his right anterior thumb. Patient states he was out fishing when the fishhook got stuck in his pants. Patient states that he told his friend to pull the fishhook out and doesn't know how it got stuck in his thumb. Patient currently denies pain. Patient states it has been more than 5 years since his last tetanus immunization. Patient denies numbness or tingling. Patient denies being on antibiotics for the last 30 days. Treatments Prior to Arrival: none - Related Data Previous Rx's Medication Instructions Recorded ARIPiprazole IM [Abilify Maintena] 400 mg IM QMONTH #1 vial 02/19/17 Cephalexin [Keflex] 500 mg PO Q6HR #20 cap 04/30/17 Allergies Allergy/AdvReac Type Severity Reaction Status Date / Time pertussis vaccine,adsorbed Allergy Unknown Verified 04/30/17 16:36 Review of Systems ROS Statement: Those systems with pertinent positive or pertinent negative responses have been documented in the HPI. ROS Other: All systems not noted in ROS Statement are negative. Past Medical History Past Medical History: Asthma History of Any Multi-Drug Resistant Organisms: None Reported Past Surgical History: No Surgical Hx Reported Past Anesthesia/Blood Transfusion Reactions: No Reported Reaction Past Psychological History: No Psychological Hx Reported Smoking Status: Never smoker Past Alcohol Use History: Occasional Past Drug Use History: Marijuana General Exam - General Exam Comments Initial Comments: GENERAL: Pt awake and alert, well-appearing, well-nourished, and in no acute distress. HEAD: Atraumatic, normocephalic. EYES: Pupils equal, round, and reactive to light, extraocular movements intact, sclera anicteric, conjunctiva are normal. ENT: Oropharynx clear without exudates. Moist mucous membranes. NECK: Supple without lymphadenopathy. LUNGS: Breath sounds clear to auscultation bilaterally. No wheezes, rales, or rhonchi. HEART: Heart S1, S2, no S3 or S4. Regular rate and rhythm. No murmurs, rubs or gallops. ABDOMEN: Soft, nontender, nondistended, normoactive bowel sounds. No guarding, no rebound. No masses or organomegaly appreciated. MUSCULOSKELETAL: Normal ROM, mild tenderness to right thumb over the CMC joint. EXTREMITIES: 2+ peripheral pulses. No edema. NEUROLOGICAL: Pt oriented x 3. No focal deficits noted. Strength and sensation grossly intact. PSYCH: Normal mood, normal affect. SKIN: Warm, dry, intact. Normal turgor. No rashes or lesions. Limitations: no limitations Course Vital Signs 04/30/17 04/30/17 16:15 17:52 Temperature 97 F L 97.1 F L Pulse Rate 82 78 Respiratory 20 17 Rate Blood Pressure 119/59 114/78 O2 Sat by Pulse 97 99 Oximetry Procedures - Procedures Initial comment: 1 mL of 1% lidocaine injected locally around fishhook prior to fishhook being removed with a plyer. Patient tolerated procedure well. Wound irrigated extensively with normal saline. Patient placed on antibiotics and instructed to follow-up with primary care physician or return to the emergency department with any new or worsening symptoms. Patient agrees to plan of care. Medical Decision Making - Medical Decision Making Foreign body in soft tissue. Fish hook removed with pliers. Patient tolerated procedure well. Patient placed on antibiotics. Patient instructed to return to the emergency department with any new or worsening symptoms. Patient agrees with treatment plan. Discharge instructions and return parameters reviewed. Disposition Clinical Impression: Fish hook injury of right thumb Disposition: HOME SELF-CARE Condition: Good Instructions: Soft Tissue Foreign Body (ED) Additional Instructions: Continue antibiotics as prescribed. Wash right thumb with soap and water often. May apply topical antibiotic ointment oversight. Monitor for signs and symptoms of infection such as red streaks, swelling, drainage, fevers, nausea, vomiting. Please return to the emergency department if you have any of those symptoms. Prescriptions: Cephalexin [Keflex] 500 mg PO Q6HR #20 cap Referrals: None,Stated [Primary Care Provider] - 1-2 days Time of Disposition: 17:22
[2017-04-30 17:54] VITALS: BP 114/78; PULSE 78; RESP 17; TEMP 97.1
== END 2017-04-30 17:52 | disposition home or self-care (01) ==
LOC: EC 15:58
DX: S69.81XA Other specified injuries of right wrist, hand and finger(s), initial encounter (principal); Z88.7 Allergy status to serum and vaccine; Z23 Encounter for immunization; W20.8XXA Other cause of strike by thrown, projected or falling object, initial encounter; Y92.89 Other specified places as the place of occurrence of the external cause; Y93.89 Activity, other specified
CPT/HCPCS: 90471; 90714; 99283

== ENCOUNTER 2018-08-15 16:24 | Inpatient (IN) | payer MEDICAID, OTHER ==
--- NOTE | 2018-08-15 16:53 | ED ---
Psych HPI - General Chief Complaint: Psychiatric Symptoms Stated Complaint: Mental health Time Seen by Provider: 08/15/18 16:38 Source: patient, police, RN notes reviewed Mode of arrival: ambulatory - History of Present Illness Initial Comments: This is a 24-year-old male with a history of schizophrenia who is brought in by police on a pickup order for apparently not taking his medication. Patient denies any suicidal or homicidal ideation he denies hearing any voices he does admit to smoking marijuana but does not use other drugs or alcohol he states. The pickup order was reviewed. No other modifying factors at this time MD Complaint: other - Related Data Home Medications Medication Instructions Recorded Confirmed ARIPiprazole IM SYRINGE [Abilify 400 mg IM Q28D 08/15/18 08/15/18 Maintena Syringe] Albuterol Inhaler [Ventolin Hfa 1 - 2 puff INHALATION RT-Q4H PRN 08/15/18 Inhaler] Lisinopril [Zestril] 2.5 mg PO DAILY 08/15/18 08/15/18 Allergies Allergy/AdvReac Type Severity Reaction Status Date / Time pertussis vaccine,adsorbed Allergy Unknown Verified 08/15/18 16:54 Review of Systems ROS Statement: Those systems with pertinent positive or pertinent negative responses have been documented in the HPI. ROS Other: All systems not noted in ROS Statement are negative. Past Medical History Past Medical History: Asthma History of Any Multi-Drug Resistant Organisms: None Reported Past Surgical History: No Surgical Hx Reported Past Anesthesia/Blood Transfusion Reactions: No Reported Reaction Smoking Status: Never smoker Past Alcohol Use History: None Reported Past Drug Use History: Marijuana General Exam - General Exam Comments Initial Comments: This is a well-developed well-nourished awake alert oriented 3 male Limitations: no limitations General appearance: alert, in no apparent distress Head exam: Present: atraumatic, normocephalic, normal inspection Eye exam: Present: normal appearance, PERRL, EOMI. Absent: scleral icterus, conjunctival injection, periorbital swelling ENT exam: Present: normal exam, mucous membranes moist Neck exam: Present: normal inspection. Absent: tenderness, meningismus, lymphadenopathy Respiratory exam: Present: normal lung sounds bilaterally. Absent: respiratory distress, wheezes, rales, rhonchi, stridor Cardiovascular Exam: Present: regular rate, normal rhythm, normal heart sounds, other (On my exam). Absent: systolic murmur, diastolic murmur, rubs, gallop, clicks GI/Abdominal exam: Present: soft, normal bowel sounds. Absent: distended, tenderness, guarding, rebound, rigid Extremities exam: Present: normal inspection, full ROM, normal capillary refill. Absent: tenderness, pedal edema, joint swelling, calf tenderness Back exam: Present: normal inspection Neurological exam: Present: alert, oriented X3, CN II-XII intact Psychiatric exam: Present: normal affect, normal mood Skin exam: Present: warm, dry, intact, normal color. Absent: rash Course Vital Signs 08/15/18 16:29 Temperature 99 F Pulse Rate 120 H Respiratory 18 Rate Blood Pressure 159/105 O2 Sat by Pulse 98 Oximetry Medical Decision Making - Medical Decision Making The patient was evaluated by psychiatric service and will be admitted for inpatient treatment. Disposition Clinical Impression: Schizophrenia, Non-compliance Disposition: TRANSFER TO PSYCH HOSP/UNIT Condition: Stable Referrals: None,Stated [Primary Care Provider] - 1-2 days
[2018-08-15] MEDS ORDERED: LORazepam 2 MG/ML INJ IM STA (18:04)
[2018-08-15] MEDS ORDERED: ARIPiprazole IM SYRINGE 400 MG (NO CHARGE) IM ONE (18:15)
[2018-08-15 18:17] LABS: Amphetamine Screen,Urine Not Detected (NotDetected); Barbiturate Screen,Urine Not Detected (NotDetected); Benzodiazepines Screen,Urine Not Detected (NotDetected); Cocaine Screen,Urine Not Detected (NotDetected); Methadone Screen, Urine Not Detected (NotDetected); Opiate Screen,Urine Not Detected (NotDetected); Oxycodone Screen, Urine Not Detected (NotDetected); Phencyclidine Screen,Urine Not Detected (NotDetected); Tricyclic Antidepressant,Urine Not Detected (NotDetected); Urn Cannabinoid Scrn Not Detected (NotDetected)
[2018-08-15] MEDS ORDERED: ACETAMINOPHEN TAB 325 MG TAB PO PRN (19:51)
[2018-08-15] MEDS ORDERED: MAG HYDROX/AL HYDROX/SIMETH 30 ML CUP PO PRN (19:51)
[2018-08-15] MEDS ORDERED: MAGNESIUM HYDROXIDE 2,400 MG/10 ML CUP PO PRN (19:51)
[2018-08-15] MEDS ORDERED: LORazepam 1 MG TAB PO PRN (19:51)
[2018-08-15] MEDS ORDERED: LORazepam 2 MG/ML INJ IM PRN (19:57)
[2018-08-15] MEDS ORDERED: ALBUTEROL INHALER 60 PUFF/8 GM INHALER INHALATION PRN (19:58)
[2018-08-15 20:23] VITALS: BMI 22.6
[2018-08-16 06:55] VITALS: TEMP 97.9
[2018-08-16] MEDS: LISINOPRIL 2.5 MG TAB PO SCH (08:34)
[2018-08-16 09:31] LABS: Basophils % (A) 0 %; Eosinophils # (A) 0.1 k/uL (0-0.7); Eosinophils % (A) 1 %; HCT 49.5 % (39.0-53.0); HGB 16.2 gm/dL (13.0-17.5); Lymphocytes # (A) 2.5 k/uL (1.0-4.8); Lymphocytes % (A) 24 %; MCH 28.5 pg (25.0-35.0); MCHC 32.8 g/dL (31.0-37.0); MCV 86.8 fL (80.0-100.0); Mean Platelet Volume 7.5; Monocytes # (A) 0.9 k/uL (0-1.0); Monocytes % (A) 8 %; Neutrophils # (A) 6.7 k/uL (1.3-7.7); Neutrophils % (A) 64 %; Platelet Count 175 k/uL (150-450); RDW 13.6 % (11.5-15.5); WBC 10.4 k/uL (3.8-10.6)
[2018-08-16 09:46] LABS: ALT 19 U/L (21-72); AST 39 U/L (17-59); Albumin 4.7 g/dL (3.5-5.0); Alkaline Phosphatase 71 U/L (38-126); Anion Gap 12 mmol/L; Blood Urea Nitrogen 12 mg/dL (9-20); Carbon Dioxide 28 mmol/L (22-30); Chloride 99 mmol/L (98-107); Cholesterol 142 mg/dL (<200); Glucose 120 mg/dL (74-99); HDL Cholesterol 52 mg/dL (40-60); LDL Cholesterol,Calculated 81 mg/dL (0-99); Potassium 4.4 mmol/L (3.5-5.1); Sodium 139 mmol/L (137-145); Total Bilirubin 0.7 mg/dL (0.2-1.3); Total Protein 7.5 g/dL (6.3-8.2); Triglycerides 47 mg/dL (<150)
--- NOTE | 2018-08-16 11:28 | P.HP ---
Psychiatric H&P - . H&P Date: 08/16/18 History & Physical: Allergies Allergy/AdvReac Type Severity Reaction Status Date / Time pertussis vaccine,adsorbed Allergy Unknown Verified 08/15/18 19:04 Vital Signs Temp 97.9 F 08/16/18 06:15 Pulse 106 H 08/16/18 06:15 Resp 20 08/16/18 06:15 BP 133/79 08/16/18 06:15 Pulse Ox 97 08/15/18 18:58 Intake & Output 08/15/18 08/16/18 08/16/18 18:59 06:59 18:59 Weight 81.647 kg 80.7 kg Laboratory Last Values WBC 10.4 k/uL (3.8-10.6) 08/16/18 09:01 RBC 5.70 m/uL (4.30-5.90) 08/16/18 09:01 Hgb 16.2 gm/dL (13.0-17.5) 08/16/18 09:01 Hct 49.5 % (39.0-53.0) 08/16/18 09:01 MCV 86.8 fL (80.0-100.0) 08/16/18 09:01 MCH 28.5 pg (25.0-35.0) 08/16/18 09:01 MCHC 32.8 g/dL (31.0-37.0) 08/16/18 09:01 RDW 13.6 % (11.5-15.5) 08/16/18 09:01 Plt Count 175 k/uL (150-450) 08/16/18 09:01 Neutrophils % 64 % 08/16/18 09:01 Lymphocytes % 24 % 08/16/18 09:01 Monocytes % 8 % 08/16/18 09:01 Eosinophils % 1 % 08/16/18 09:01 Basophils % 0 % 08/16/18 09:01 Neutrophils # 6.7 k/uL (1.3-7.7) 08/16/18 09:01 Lymphocytes # 2.5 k/uL (1.0-4.8) 08/16/18 09:01 Monocytes # 0.9 k/uL (0-1.0) 08/16/18 09:01 Eosinophils # 0.1 k/uL (0-0.7) 08/16/18 09:01 Basophils # 0.0 k/uL (0-0.2) 08/16/18 09: Sodium 139 mmol/L (137-145) 08/16/18 09: Potassium 4.4 mmol/L (3.5-5.1) 08/16/18 09: Chloride 99 mmol/L (98-107) 08/16/18 09: Carbon Dioxide 28 mmol/L (22-30) 08/16/18 09: Anion Gap 12 mmol/L 08/16/18 09: BUN 12 mg/dL (9-20) 08/16/18 09: Creatinine 1.10 mg/dL (0.66-1.25) 08/16/18 09: Est GFR (CKD-EPI)AfAm >90 (>60 ml/min/1.73 sqM) 08/16/18: Est GFR (CKD-EPI)NonAf >90 (>60 ml/min/1.73 sqM) 08/16/18 09: Glucose 120 mg/dL (74-99) H 08/16/18 09: Calcium 10.0 mg/dL (8.4-10.2) 08/16/18 09: Total Bilirubin 0.7 mg/dL (0.2-1.3) 08/16/18 09: AST 39 U/L (17-59) 08/16/18 09: ALT 19 U/L (21-72) L 08/16/18 09: Alkaline Phosphatase 71 U/L (38-126) 08/16/18 09: Total Protein 7.5 g/dL (6.3-8.2) 08/16/18 09: Albumin 4.7 g/dL (3.5-5.0) 08/16/18 09: Triglycerides 47 mg/dL (<150) 08/16/18 09: Cholesterol 142 mg/dL (<200) 08/16/18 09: LDL Cholesterol, Calc 81 mg/dL (0-99) 08/16/18 09: HDL Cholesterol 52 mg/dL (40-60) 08/16/18 09: TSH 2.140 mIU/L (0.465-4.680) 08/16/18 09:01 Urine Opiates Screen Not Detected (NotDetected) 08/15/18 17:59 Ur Oxycodone Screen Not Detected (NotDetected) 08/15/18 17:59 Urine Methadone Screen Not Detected (NotDetected) 08/15/18 17:59 Ur Propoxyphene Screen Not Detected (NotDetected) 08/15/18 17:59 Ur Barbiturates Screen Not Detected (NotDetected) 08/15/18 17:59 U Tricyclic Antidepress Not Detected (NotDetected) 08/15/18 17:59 Ur Phencyclidine Scrn Not Detected (NotDetected) 08/15/18 17:59 Ur Amphetamines Screen Not Detected (NotDetected) 08/15/18 17:59 U Methamphetamines Scrn Not Detected (NotDetected) 08/15/18 17:59 U Benzodiazepines Scrn Not Detected (NotDetected) 08/15/18 17:59 Urine Cocaine Screen Not Detected (NotDetected) 08/15/18 17:59 U Marijuana (THC) Screen Not Detected (NotDetected) 08/15/18 17:59 Assessment and Plan Assessment: Chief Complaint: Psychiatric Symptoms Stated Complaint: Mental health Time Seen by Provider: 08/16/2018 Source: patient, police, RN notes reviewed Court ordered treatment - History of Present Illness Initial Comments: This is a 24-year-old male with a history of schizophrenia who is brought in by police on a pickup order for apparently not taking his medication. Patient denies any suicidal or homicidal ideation he denies hearing any voices he does admit to smoking marijuana but does not use other drugs or alcohol he states. The pickup order was reviewed. No other modifying factors at this time. I just don't like taking my medication makes me feel tired and fatigued all over. Discussed within minutes court ordered. Home Medications Medication Instructions Recorded Confirmed ARIPiprazole IM SYRINGE [Abilify 400 mg IM Q28D 08/15/18 08/15/18 Maintena Syringe] Albuterol Inhaler [Ventolin Hfa 1 - 2 puff INHALATION RT-Q4H PRN 08/15/18 Inhaler] Lisinopril [Zestril] 2.5 mg PO DAILY 08/15/18 08/15/18 Allergies Allergy/AdvReac Type Severity Reaction Status Date / Time pertussis vaccine,adsorbed Allergy Unknown Verified 08/15/18 16:54 Past Medical History Past Medical History: Asthma History of Any Multi-Drug Resistant Organisms: None Reported Past Surgical History: No Surgical Hx Reported Past Anesthesia/Blood Transfusion Reactions: No Reported Reaction Smoking Status: Never smoker Past Alcohol Use History: None Reported Past Drug Use History: Marijuana PAST PSYCHIATRIC HISTORY: Patient states he's had more than one prior inpatient psychiatric admission. He says they didn't put him on medications but they give him injections. He does make reference to being treated for ADHD and receiving sleep medications in the past. PMH: History of asthma ALLERGIES: Pertussis vaccine MEDICATIONS: Tylenol when necessary, Maalox when necessary, Ativan when necessary, milk of magnesia when necessary, Geodon when necessary CHEMICAL DEPENDENCY HISTORY: Marijuana as often as he can, daily; shrooms not often. FAMILY PSYCHIATRIC HISTORY: Relays he doesn't care about their problems FAMILY CHEMICAL DEPENDENCY HISTORY: None known at this time SOCIAL HISTORY: He lives with his dad. Says he has 4 sisters and one brother. No current work or school. No current relationship. Says she's never been and does not have any children. Says he needs 2 credits to graduate from high school but is not looking at finishing it. MENTAL STATUS EXAM: He is alert and overall cooperative with the interview. He is seen with male one-to-one staff present. Regarding his mood he says "I want to fucking go home." His thought processes show some disorganization. He relates that he does hear his thoughts from the past and future. He denies any recent thoughts of harm to self or others, towards the end of the session he does make some references to suicide as above in HPI, he inquires "what happens if I kill myself here." He also made a threatening type remark related to a staff who may have been involved in giving him an injection. His insight is limited, judgment is impaired. Cognitively appears very grossly intact. I do not note any significant disorientation or memory disturbance. STRENGTHS/WEAKNESSES: Strengths-some support system; weaknesses-coping skills INTELLECTUAL FUNCTIONING: Average IMPRESSIONS: Unspecified psychotic disorder; rule out primary psychotic disorder versus any component of substance-induced; unspecified depressive disorder; cannabis use disorder; rule out hallucinogenic use disorder PLAN: Patient is admitted to the inpatient psychiatric unit [facility] involuntary basis. Second clinical cert done for involuntary commitment. Baseline laboratory workup will be done the patient and medical consultation will be ordered. I discussed psychotropic medication with the patient including Abilify which he refuses at this time but was injected in ED with Abilify sustain 400 mg. Discussed with him regarding giving further consideration to psychotropic medication use. We do have Ativan and Geodon ordered as needed. He will continue on a one to one at this time. We'll monitor regarding any thoughts of harm to self or others and monitor for any psychosis symptoms. Estimated length of stay is 4 days. Prognosis is guarded. We'll continue to cover this patient for Dr. York through the weekend and he will initiate care on Wednesday. (1) Non-compliance Current Visit: Yes Status: Acute Priority: High Code(s): Z91.19 - PATIENT' S NONCOMPLIANCE W OTH MEDICAL TREATMENT AND REGIMEN SNOMED Code(s): 6326065 (2) Schizophrenia Current Visit: Yes Status: Acute Priority: High Code(s): F20.9 - SCHIZOPHRENIA, UNSPECIFIED SNOMED Code(s): 14589266 Plan: restart abilify sustena 400 mg Time with Patient: Less than 30
--- NOTE | 2018-08-16 13:37 | P.CONS ---
History of Present Illness - Reason for Consult Medical clearance - History of Present Illness Patient is a pleasant 23-year-old gentleman with schizophrenia is admitted for acute psychosis. Patient denied any fever chills nausea vomiting abdominal pain does have history of hypertension uses lisinopril patient blood pressure is bit elevated so we'll couldn't continue with lisinopril. Does use marijuana doesn't smoke denied any alcohol abuse or any other drug abuse Review of Systems REVIEW OF SYSTEMS: CONSTITUTIONAL: No fever, no malaise, no fatigue. HEENT: No recent visual problems or hearing problems. Denied any sore throat. CARDIOVASCULAR: No chest pain, orthopnea, PND, no palpitations, no syncope. PULMONARY: No shortness of breath, no cough, no hemoptysis. GASTROINTESTINAL: No diarrhea, no nausea, no vomiting, no abdominal pain. Normoactive bowel sounds. NEUROLOGICAL: No headaches, no weakness, no numbness. HEMATOLOGICAL: Denies any bleeding or petechiae. GENITOURINARY: Denies any burning micturition, frequency, or urgency. MUSCULOSKELETAL/RHEUMATOLOGICAL: Denies any joint pain, swelling, or any muscle pain. ENDOCRINE: Denies any polyuria or polydipsia. The rest of the 14-point review of systems is negative. Past Medical History Past Medical History: Asthma History of Any Multi-Drug Resistant Organisms: None Reported Past Surgical History: No Surgical Hx Reported Past Anesthesia/Blood Transfusion Reactions: No Reported Reaction Smoking Status: Never smoker Medications and Allergies Home Medications Medication Instructions Recorded Confirmed Type ARIPiprazole IM SYRINGE [Abilify 400 mg IM Q28D 08/15/18 08/15/18 History Maintena Syringe] Albuterol Inhaler [Ventolin Hfa 1 - 2 puff INHALATION RT-Q4H PRN 08/15/18 History Inhaler] Lisinopril [Zestril] 2.5 mg PO DAILY 08/15/18 08/15/18 History Allergies Allergy/AdvReac Type Severity Reaction Status Date / Time pertussis vaccine,adsorbed Allergy Unknown Verified 08/15/18 19:04 Physical Exam Vitals: Vital Signs Temp Pulse Pulse Resp BP BP Pulse Ox 08/16/18 06:15 97.9 F 106 H 20 133/79 08/15/18 19:54 99.3 F 103 H 16 136/63 08/15/18 18:58 99.1 F 110 H 18 150/90 97 08/15/18 16:29 99 F 120 H 18 159/105 98 Intake and Output 08/15/18 08/16/18 08/16/18 22:59 06:59 14:59 Other: Weight 80.7 kg PHYSICAL EXAMINATION: GENERAL: The patient is alert and oriented x3, not in any acute distress. Well developed, well nourished. HEENT: Pupils are round and equally reacting to light. EOMI. No scleral icterus. No conjunctival pallor. Normocephalic, atraumatic. No pharyngeal erythema. No thyromegaly. CARDIOVASCULAR: S1 and S2 present. No murmurs, rubs, or gallops. PULMONARY: Chest is clear to auscultation, no wheezing or crackles. ABDOMEN: Soft, nontender, nondistended, normoactive bowel sounds. No palpable organomegaly. MUSCULOSKELETAL: No joint swelling or deformity. EXTREMITIES: No cyanosis, clubbing, or pedal edema. NEUROLOGICAL: Gross neurological examination did not reveal any focal deficits. SKIN: No rashes. Results CBC & Chem 7: 08/16/18 09:01 08/16/18 09:01 Labs: Abnormal Lab Results - Last 24 Hours (Table) 08/16/18 Range/Units 09:01 Glucose 120 H (74-99) mg/dL ALT 19 L (21-72) U/L Assessment and Plan Plan: Hypertension: Continue with the lisinopril monitor blood pressure -Marijuana use: Counseling was provided -Asthma without any acute exacerbation -Schizophrenia management as per primary service
[2018-08-17] MEDS: LISINOPRIL 2.5 MG TAB PO SCH (07:54)
[2018-08-17 07:57] VITALS: BP 139/81; PULSE 84; RESP 18
--- NOTE | 2018-08-17 09:47 | P.PN ---
Subjective Progress Note Date: 08/17/18 Principal diagnosis: Schizophrenia Patient approached physician today and wanted to talk regarding being discharged to home. The skip discussed in detail the need for medication and he doesn't like it nor does want to take any. He has minimal insight into the psychiatric disability that he has which includes bizarre agitated behavior. He talked about his original psychiatric break which was 02/08/2017 whereby he was on the roof off and in a pair of pants and a tank top staring at the stars. He was difficult to remove from the rough and had the age of the police. He came in after one week of injections twice a day Haldol agreed to take oral medicine. He was discharged on Abilify 400 mg sustana he is at high risk for developing another break since he is nonadherent to treatment plan. Objective - Vital Signs Vital signs: Vital Signs Temp 97.9 F 08/16/18 06:15 Pulse 84 08/17/18 07:57 Resp 18 08/17/18 07:57 BP 139/81 08/17/18 07:57 Pulse Ox 97 08/15/18 18:58 - Labs CBC & Chem 7: 08/16/18 09:01 08/16/18 09:01 Labs: Abnormal Lab Results - Last 24 Hours (Table) 08/16/18 Range/Units 09:01 Glucose 120 H (74-99) mg/dL ALT 19 L (21-72) U/L Assessment and Plan Assessment: Chief Complaint: Psychiatric Symptoms Stated Complaint: Mental health Time Seen by Provider: 08/16/2018 Source: patient, police, RN notes reviewed Court ordered treatment - History of Present Illness Initial Comments: This is a 24-year-old male with a history of schizophrenia who is brought in by police on a pickup order for apparently not taking his medication. Patient denies any suicidal or homicidal ideation he denies hearing any voices he does admit to smoking marijuana but does not use other drugs or alcohol he states. The pickup order was reviewed. No other modifying factors at this time. I just don't like taking my medication makes me feel tired and fatigued all over. Discussed within minutes court ordered. Home Medications Medication Instructions Recorded Confirmed ARIPiprazole IM SYRINGE [Abilify 400 mg IM Q28D 08/15/18 08/15/18 Maintena Syringe] Albuterol Inhaler [Ventolin Hfa 1 - 2 puff INHALATION RT-Q4H PRN 08/15/18 Inhaler] Lisinopril [Zestril] 2.5 mg PO DAILY 08/15/18 08/15/18 Allergies Allergy/AdvReac Type Severity Reaction Status Date / Time pertussis vaccine,adsorbed Allergy Unknown Verified 08/15/18 16:54 Past Medical History Past Medical History: Asthma History of Any Multi-Drug Resistant Organisms: None Reported Past Surgical History: No Surgical Hx Reported Past Anesthesia/Blood Transfusion Reactions: No Reported Reaction Smoking Status: Never smoker Past Alcohol Use History: None Reported Past Drug Use History: Marijuana PAST PSYCHIATRIC HISTORY: Patient states he's had more than one prior inpatient psychiatric admission. He says they didn't put him on medications but they give him injections. He does make reference to being treated for ADHD and receiving sleep medications in the past. PMH: History of asthma ALLERGIES: Pertussis vaccine MEDICATIONS: Tylenol when necessary, Maalox when necessary, Ativan when necessary, milk of magnesia when necessary, Geodon when necessary CHEMICAL DEPENDENCY HISTORY: Marijuana as often as he can, daily; shrooms not often. FAMILY PSYCHIATRIC HISTORY: Relays he doesn't care about their problems FAMILY CHEMICAL DEPENDENCY HISTORY: None known at this time SOCIAL HISTORY: He lives with his dad. Says he has 4 sisters and one brother. No current work or school. No current relationship. Says she's never been and does not have any children. Says he needs 2 credits to graduate from high school but is not looking at finishing it. MENTAL STATUS EXAM: He is alert and overall cooperative with the interview. He is seen with male one-to-one staff present. Regarding his mood he says "I want to fucking go home." His thought processes show some disorganization. He relates that he does hear his thoughts from the past and future. He denies any recent thoughts of harm to self or others, towards the end of the session he does make some references to suicide as above in HPI, he inquires "what happens if I kill myself here." He also made a threatening type remark related to a staff who may have been involved in giving him an injection. His insight is limited, judgment is impaired. Cognitively appears very grossly intact. I do not note any significant disorientation or memory disturbance. STRENGTHS/WEAKNESSES: Strengths-some support system; weaknesses-coping skills INTELLECTUAL FUNCTIONING: Average IMPRESSIONS: Unspecified psychotic disorder; rule out primary psychotic disorder versus any component of substance-induced; unspecified depressive disorder; cannabis use disorder; rule out hallucinogenic use disorder PLAN: Patient is admitted to the inpatient psychiatric unit [facility] involuntary basis. Second clinical cert done for involuntary commitment. Baseline laboratory workup will be done the patient and medical consultation will be ordered. I discussed psychotropic medication with the patient including Abilify which he refuses at this time but was injected in ED with Abilify sustana 400 mg. Discussed with him regarding giving further consideration to psychotropic medication use. We do have Ativan and Geodon ordered as needed. He will continue on a one to one at this time. We'll monitor regarding any thoughts of harm to self or others and monitor for any psychosis symptoms. Estimated length of stay is 4 days. Prognosis is guarded. We'll continue to cover this patient for Dr. York through the weekend and he will initiate care on Wednesday. (1) Non-compliance Current Visit: Yes Status: Acute Priority: High Code(s): Z91.19 - PATIENT' S NONCOMPLIANCE W OTH MEDICAL TREATMENT AND REGIMEN SNOMED Code(s): 3710210 (2) Schizophrenia Current Visit: Yes Status: Acute Priority: High Code(s): F20.9 - SCHIZOPHRENIA, UNSPECIFIED SNOMED Code(s): 39376209 Plan: restart abilify sustena 400 mg Time with Patient: Less than 30
--- NOTE | 2018-08-17 11:08 | P.DS ---
Providers Date of admission: 08/15/18 18:55 Expected date of discharge: 08/17/18 Attending physician: Rick Padron DO Consults: 08/15/18 20:12 Consult Physician Routine Consulting Provider: Leonides Jay Consult Reason/Comments: H&P Do you want consulting provider notified?: Yes Primary care physician: Stated None - Discharge Diagnosis(es) (1) Non-compliance his is a 24-year-old male with a history of schizophrenia who is brought in by police on a pickup order for apparently not taking his medication. Patient denies any suicidal or homicidal ideation he denies hearing any voices he does admit to smoking marijuana but does not use other drugs or alcohol he states. The pickup order was reviewed. No other modifying factors at this time. I just don't like taking my medication makes me feel tired and fatigued all over. Discussed within minutes court ordered. Home Medications Medication Instructions Recorded Confirmed ARIPiprazole IM SYRINGE [Abilify 400 mg IM Q28D 08/15/18 08/15/18 Maintena Syringe] Albuterol Inhaler [Ventolin Hfa 1 - 2 puff INHALATION RT-Q4H PRN 08/15/18 Inhaler] Lisinopril [Zestril] 2.5 mg PO DAILY 08/15/18 08/15/18 Allergies Allergy/AdvReac Type Severity Reaction Status Date / Time pertussis vaccine,adsorbed Allergy Unknown Verified 08/15/18 16:54 Past Medical History Past Medical History: Asthma History of Any Multi-Drug Resistant Organisms: None Reported Past Surgical History: No Surgical Hx Reported Past Anesthesia/Blood Transfusion Reactions: No Reported Reaction Smoking Status: Never smoker Past Alcohol Use History: None Reported Past Drug Use History: Marijuana Hospital course: Roe Pak was in the hospital was adherent to groups and appropriate with nursing staff. He was started on his aripiprazole maintain on the day of admission and has been stable since that. He does have a fixed delusion that he doesn't need the medicine and can't understand why he needs the medicine. The patient presents alert, pleasant, and cooperative. There calmly seated without any agitated behavior. [He] reports that [his] mood is good. Affect is congruent and euthymic. [He] deny having any suicidal or homicidal ideation intent or plan. [He] denies any auditory or visual hallucinations. There is no evidence of any delusional thought content. [His] thought process is linear and goal-directed. [His] speech is fluent and nonpressured. [His] memory and concentration is grossly intact for the purposes of this session. Plan is to discharge him back to care of [facility] with an August 15 injection day which was completed and should be reinjected with Abiliflorena maintena 09/15/2018. I talked with [facility] [employer] liqu[employer] sales representative this morning will also make sure he gets appointment and follow- up with his therapist and nurse outreach case manager. Current Visit: Yes Status: Acute Priority: High (2) Schizophrenia Current Visit: Yes Status: Acute Priority: High Patient Condition at Discharge: Stable Plan - Discharge Summary Discharge Rx Participant: No New Discharge Prescriptions: New Albuterol Inhaler [Ventolin Hfa Inhaler] 2 puff INHALATION RT-Q4H PRN puff PRN Reason: Shortness Of Breath Continue Lisinopril [Zestril] 2.5 mg PO DAILY ARIPiprazole IM SYRINGE [Abilify Maintena Syringe] 400 mg IM Q28D Discontinued Albuterol Inhaler [Ventolin Hfa Inhaler] 1 - 2 puff INHALATION RT-Q4H PRN PRN Reason: Shortness Of Breath Discharge Medication List ARIPiprazole IM SYRINGE [Abilify Maintena Syringe] 400 mg IM Q28D 08/15/18 [ History] Lisinopril [Zestril] 2.5 mg PO DAILY 08/15/18 [History] Albuterol Inhaler [Ventolin Hfa Inhaler] 2 puff INHALATION RT-Q4H PRN puff [Rx] Follow up Appointment(s)/Referral(s): [facility] [Outside] - 08/22/18 2:00 pm (08-22-18 @ 2:00 with Karolina Mohan 08-26-18 @ 9:30 with Alice Hassan ) None,Stated [Primary Care Provider] - 1-2 days Discharge Disposition: HOME SELF-CARE
== END 2018-08-17 12:08 | disposition home or self-care (01) | DRG 885 ==
LOC: EC 16:24 → 3MHU 18:55
PROVIDERS: ADMIT Psychiatry & Neurology Psychiatry; ATTEND Psychiatry & Neurology Psychiatry
DX: F20.9 Schizophrenia, unspecified (principal); F90.9 Attention-deficit hyperactivity disorder, unspecified type; J45.909 Unspecified asthma, uncomplicated; R53.83 Other fatigue; Z91.128 Patient's intentional underdosing of medication regimen for other reason; I10 Essential (primary) hypertension; F12.90 Cannabis use, unspecified, uncomplicated; Z79.899 Other long term (current) drug therapy; Z88.7 Allergy status to serum and vaccine
CPT/HCPCS: 80053; 80061; 80306; 82075; 83036; 84443; 85025; 96372; 99285

== ENCOUNTER 2018-11-23 19:23 | Emergency (ER) | payer OTHER ==
[2018-11-23 19:54] VITALS: BP 153/90; PULSE 100; RESP 20; TEMP 98.2
--- NOTE | 2018-11-23 20:26 | ED ---
ENT HPI - General Chief complaint: ENT Stated complaint: Ear pain Time Seen by Provider: 11/23/18 19:51 Source: patient, family Mode of arrival: ambulatory Limitations: no limitations - History of Present Illness Initial comments: 23-year-old male with past medical history of schizophrenia presenting today for chief complaint of right earlobe tenderness. Patient states she was diagnosed with a right earlobe keloid and was given surgery follow-up for further evaluation. Patient states the area is tender to touch and presented for evaluation. Patient denies any deep ear pain, fever or chills night sweats erythema of the ear, hearing loss dizziness headache or any other associated symptoms. Patient states he feels a small bump at the area between his lower earlobe and the connection to his head. Remainder review of systems negative. Patient denies any sore throat, nausea vomiting of bowel pain chest pain dyspnea diplopia difficult with the swallowing pain to palpation posterior to ear. Patient states he has not scheduled yet for surgical follow-up. Patient upon arrival is afebrile and well-appearing. No signs of toxicity. MD complaint: tooth pain - Related Data Home Medications Medication Instructions Recorded Confirmed Lisinopril [Zestril] 2.5 mg PO DAILY 08/15/18 11/23/18 ARIPiprazole [Abilify Maintena] 300 mg IM Q28D 11/23/18 11/23/18 Previous Rx's Medication Instructions Recorded Albuterol Inhaler [Ventolin Hfa 2 puff INHALATION RT-Q4H PRN puff 08/17/18 Inhaler] Allergies Allergy/AdvReac Type Severity Reaction Status Date / Time pertussis vaccine,adsorbed Allergy Unknown Verified 11/23/18 19:54 Review of Systems ROS Statement: Those systems with pertinent positive or pertinent negative responses have been documented in the HPI. ROS Other: All systems not noted in ROS Statement are negative. Past Medical History Past Medical History: Asthma History of Any Multi-Drug Resistant Organisms: None Reported Past Surgical History: No Surgical Hx Reported Past Anesthesia/Blood Transfusion Reactions: No Reported Reaction Past Psychological History: No Psychological Hx Reported Smoking Status: Never smoker Past Alcohol Use History: None Reported Past Drug Use History: None Reported General Exam - General Exam Comments Initial Comments: General: The patient is awake and alert, in no distress, and does not appear acutely ill. Eye: Pupils are equal, round and reactive to light, extra-ocular movements are intact. No nystagmus. There is normal conjunctiva bilaterally. No signs of icterus. Ears, nose, mouth and throat: There are moist mucous membranes and no oral lesions. Tympanic membranes are within normal limits bilaterally there is no erythema or effusions bulging retraction. Extraocular Edematous or Erythematous. There Is No Tenderness to Pulling of the Auricle or Pressing of the Tragus. Patient Does Have Palpable Cyst at the Lower Aspect of Right Earlobe, There Is No Surrounding Erythema. Mild Tenderness to Palpation No Anterior Cervical Lymph Node P No Preauricular Lymphadenopathy. No Tenderness to Palpation the Mastoid Bilaterally. Hearing Intact to Finger Rub Bilaterally. No Evidence of Hearing Loss. Oropharynx not erythematous. Neck: The neck is supple, there is no tenderness or JVD. Cardiovascular: There is a regular rate and rhythm. No murmur, rub or gallop is appreciated. Respiratory: Lungs are clear to auscultation, respirations are non-labored, breath sounds are equal. No wheezes, stridor, rales, or rhonchi. Musculoskeletal: Normal ROM, no tenderness. Strength 5/5. Sensation intact. Pulses equal bilaterally 2+. Neurological: A&O x 3. CN II-XII intact, There are no obvious motor or sensory deficits. Coordination appears grossly intact. Speech is normal. Skin: Skin is warm and dry and no rashes or lesions are noted. Psychiatric: Cooperative, appropriate mood & affect, normal judgment. Limitations: no limitations Course Vital Signs 11/23/18 19:50 Temperature 98.2 F Pulse Rate 100 Respiratory 20 Rate Blood Pressure 153/90 O2 Sat by Pulse 99 Oximetry Medical Decision Making - Medical Decision Making Physical examination revealed findings consistent with cyst. There is no overt signs of infection. Patient appears well normal internal ear exam. No evidence of hearing loss. Patient has surgical follow-up scheduled by primary care provider. In addition patient was provided ears referral today. Patient is agreeable plan discharge. I did discuss the case briefly with attending provider Dr. Deras who agreed impression and plan. Patient discharged in stable condition appearing well and nontoxic. Disposition Clinical Impression: Cyst, Pain of right earlobe Disposition: HOME SELF-CARE Condition: Good Instructions (If sedation given, give patient instructions): Cyst (ED) Additional Instructions: Please use medication as discussed. Please follow-up with family doctor in the next 2 days. Please follow-up with surgeon as referred by PCP. Please follow-up with ENT in next month. Please return to emergency room if the symptoms increase or worsen or for any other concerns. Is patient prescribed a controlled substance at d/c from ED?: No Referrals: [facility] [Primary Care Provider] - 1-2 days Tunde Ly MD [STAFF PHYSICIAN] - 1-2 days Time of Disposition: 20:26
== END 2018-11-23 20:41 | disposition home or self-care (01) ==
LOC: EC 19:23
DX: L72.9 Follicular cyst of the skin and subcutaneous tissue, unspecified (principal); K08.89 Other specified disorders of teeth and supporting structures; F20.9 Schizophrenia, unspecified; Z79.899 Other long term (current) drug therapy; Z88.7 Allergy status to serum and vaccine
CPT/HCPCS: 99282

== ENCOUNTER 2019-09-18 17:59 | Inpatient (IN) | payer MEDICAID, OTHER ==
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
[2019-09-18 20:01] LABS: Amphetamine Screen,Urine Not Detected (NotDetected); Barbiturate Screen,Urine Not Detected (NotDetected); Benzodiazepines Screen,Urine Not Detected (NotDetected); Cocaine Screen,Urine Not Detected (NotDetected); Methadone Screen, Urine Not Detected (NotDetected); Opiate Screen,Urine Not Detected (NotDetected); Oxycodone Screen, Urine Not Detected (NotDetected); Phencyclidine Screen,Urine Not Detected (NotDetected); Tricyclic Antidepressant,Urine Not Detected (NotDetected); Urn Cannabinoid Scrn Detected (NotDetected)
[2019-09-18] MEDS ORDERED: LORazepam 1 MG TAB PO PRN (22:32)
[2019-09-18] MEDS ORDERED: MAGNESIUM HYDROXIDE 2,400 MG/10 ML CUP PO PRN (22:32)
[2019-09-18] MEDS ORDERED: MAG HYDROX/AL HYDROX/SIMETH 30 ML CUP PO PRN (22:32)
[2019-09-18] MEDS ORDERED: ALBUTEROL INHALER 60 PUFF/8 GM INHALER INHALATION PRN (23:00)
[2019-09-18] MEDS ORDERED: ZIPRASIDONE 20 MG VIAL IM ONE (23:43)
[2019-09-19] MEDS ORDERED: PNEUMOCOCCAL VACC-PNEUMOVAX 23 25 MCG/0.5 ML VIAL IM ONE (09:00)
[2019-09-19] MEDS ORDERED: INFLUENZA VACCINE (6 MOS+) 60 MCG/0.5 ML SYRINGE IM ONE (09:00)
[2019-09-19] MEDS: LISINOPRIL 2.5 MG TAB PO SCH (09:08)
[2019-09-19] MEDS: ARIPiprazole 5 MG TAB PO SCH (09:08)
[2019-09-19 12:30] LABS: ALT 34 U/L (21-72); AST 44 U/L (17-59); African American GFR (CKD) >90 (>60 ml/min/1.73 sqM); Albumin 4.7 g/dL (3.5-5.0); Alkaline Phosphatase 73 U/L (38-126); Anion Gap 11 mmol/L; Blood Urea Nitrogen 20 mg/dL (9-20); Calcium 9.7 mg/dL (8.4-10.2); Carbon Dioxide 27 mmol/L (22-30); Chloride 101 mmol/L (98-107); Cholesterol 138 mg/dL (<200); Glucose 97 mg/dL (74-99); HDL Cholesterol 50 mg/dL (40-60); LDL Cholesterol,Calculated 79 mg/dL (0-99); Non-African American GFR(CKD) >90 (>60 ml/min/1.73 sqM); Potassium 4.6 mmol/L (3.5-5.1); Sodium 139 mmol/L (137-145); Total Bilirubin 0.9 mg/dL (0.2-1.3); Total Protein 7.4 g/dL (6.3-8.2); Triglycerides 45 mg/dL (<150)
[2019-09-19 12:41] LABS: Basophils % (A) 0 %; Eosinophils # (A) 0.2 k/uL (0-0.7); Eosinophils % (A) 2 %; HCT 47.5 % (39.0-53.0); HGB 15.8 gm/dL (13.0-17.5); Lymphocytes # (A) 2.1 k/uL (1.0-4.8); Lymphocytes % (A) 22 %; MCH 28.9 pg (25.0-35.0); MCHC 33.4 g/dL (31.0-37.0); MCV 86.7 fL (80.0-100.0); Mean Platelet Volume 6.5; Monocytes # (A) 0.7 k/uL (0-1.0); Monocytes % (A) 7 %; Neutrophils # (A) 6.4 k/uL (1.3-7.7); Neutrophils % (A) 67 %; Platelet Count 198 k/uL (150-450); RBC 5.48 m/uL (4.30-5.90); RDW 13.1 % (11.5-15.5); WBC 9.5 k/uL (3.8-10.6)
[2019-09-19] MEDS ORDERED: ZIPRASIDONE 20 MG VIAL IM ONE ×2 (13:06→13:09)
[2019-09-19] MEDS ORDERED: ARIPiprazole IM 400 MG VIAL (NO COST) IM ONE (13:07)
[2019-09-19] MEDS ORDERED: WATER FOR INJECTION, STERILE 10 ML IV ONE (13:09)
[2019-09-19] MEDS: LORazepam 2 MG/ML INJ IM PRN (13:22)
[2019-09-19] MEDS: ZIPRASIDONE 20 MG VIAL IM PRN (13:35)
--- NOTE | 2019-09-19 13:56 | P.HP ---
Psychiatric H&P - . H&P Date: 09/19/19 History & Physical: IDENTIFYING DATA: The patient is a 24-year-old single male brought to emergency room by his father who completed a petition for hospitalization. However, the patient signed a voluntary admission once he arrived on the unit. HISTORY OF PRESENT ILLNESS: He has a history of schizophrenia with 2 prior admissions to this psychiatric unit. He complained that this hospitalization was result of a misunderstanding. He called the police yesterday to report a a legal dumping ground. He talked about "somebody" dumping old bicycles and other items on the land that is owned by his father. He also told EPS nurse and irineo aguilar was a "crime scene" and he needed to report to the police. Also, according to the EPS nurse, his father stated that he collected place: [employer] social and some problem in this area. He also told the EPS nurse that he had been and "all branches of but could not speak about it because it is classified." He is enrolled with [facility] and was evaluated by the Mobile Crisis Unit on the day of admission but refused to go to his scheduled mental health appointment. He stated that he was receiving Abilify injections while he was court ordered for treatment but stopped receiving treatment once the court order . He was without complaint other than concern about misunderstanding that led to this hospitalization. He continues to maintain that he called the police to report the legal dumping site. He denied experiencing such psychotic symptoms as auditory, visual or olfactory hallucinations. He denied experiencing ideas reference, thought insertion, thought broadcasting or thought control. He denied feeling depressed or having thoughts of or suicide. He denies feeling persistently anxious or experiencing periods of increased anxiety consistent with panic attack. He smokes marijuana on a daily basis but denied use of other drugs get high, help him sleep or changes mood. Around 1 PM today patient became abruptly agitated and kept everything from the wall. His management required emergency staff assistance, physical restraint and seclusion. PAST PSYCHIATRIC HISTORY: He is admitted to this unit in January 2017 and July 2018. His discharge diagnoses include schizophrenia, cannabis use disorder and noncompliance with treatment. He was last admitted involuntarily and "ordered for outpatient treatment. His discharge medications included Abilify maintaining a 400 mg IM every 28 days. PAST MEDICAL HISTORY: Asthma. Medical consult appreciated. ALLERGIES: Pertussis vaccine. SUBSTANCE USE HISTORY: He smokes marijuana but denied use of other drugs. He smokes on a daily basis but denied that family or friends have expressed concern about his marijuana use. FAMILY PSYCHIATRIC/SUBSTANCE USE HISTORY: He is unaware of a family history of mental health or substance use problems. LEGAL HISTORY: He is not on probation, parole or pending charges. He is not under a court order for involuntary mental health treatment. SOCIAL HISTORY: Was born and raised in [facility] [facility] [place]. His parents when he was 15 years old. He currently lives with his father in [facility]. He has 4 sisters and 1 brother. He is unemployed and receives Social Security disability. He alleges that he's been receiving Social Security disability since he was a child. He is single and has no children. He was never in the . He has a long history of behavioral and conduct problems beginning in childhood. He was expelled from school twice. He eventually obtained a high school diploma through the [employer]. MENTAL STATUS EXAM: He presented as a tall casually groomed male who was dressed in hospital gown. He made eye contact and attended the interview. He had a large tattoo on his right forearm but no prominent physical abnormalities. He had a blunted but bright facial expression. He was alert and oriented to person, place and time. He showed slight psychomotor retardation but no abnormal movements. He is not agitated or restless. His speech was spontaneous blunted rate, rhythm and volume. He had no articulation difficulties. His affect was blunted but stable and appropriate. He denied suicidal ideation, wishes or homicidal ideation. He did not express such depressive cognitions as hopelessness, helplessness or worthlessness. He did not express clear ideas of reference or paranoid ideation. He continues to maintain the apparent delusional belief about the legal dumping ground on his father's property. His thinking was concrete but his associations were coherent and logical. He did not demonstrate clang associations, perseverations, neologisms or blocking. He denied hallucinations and didn't appear to be responding to internal stimuli. Global impression of intellect is average to below. He has limited awareness of understanding of his mental illness.. STRENGTHS: Good health, supportive family, stable residence, stable income. WEAKNESSES: Lack of understanding or awareness of his chronic mental illness, poor compliance with treatment. IMPRESSION: Is a 23-year-old male who has a long history of behavioral and conduct problems beginning in childhood and resulting in academic problems and eventual expulsion from school. He has a history of prior psychiatric hospitalizations and past diagnoses of a schizophrenia. He has been court ordered for treatment and appeared to have done well while he was compliant with chronic antipsychotic treatment. He stopped treatment once the involuntary court order and presents with a delusional belief. He should best be treated inpatient basis with combination of antipsychotic medications and multimodal therapy. PRINCIPLE DIAGNOSIS: Schizophrenia chronic paranoid type with acute ex acerbation, poor compliance with psychiatric treatment, history of conduct disorder beginning in childhood RECOMMENDATION: Continue inpatient psychiatric hospitalization. Safety precautions. Geodon 20 mg IM twice a day when necessary for agitation or aggression, continue Ativan 1 mg IM by mouth 3 times a day when necessary for agitation, anxiety or aggression. Restart oral Abilify beginning at 5 mg daily and Abilify maintaining a 4 mg IM. Obtain clinical information from his father. janitorial maintenance worker completed the initial psychosocial assessment. Complete a clinical certificate for involuntary hospitalization. Encourage participation in therapeutic groups and activities. Evaluate clinical status response to treatment daily basis. Allergies Allergy/AdvReac Type Severity Reaction Status Date / Time pertussis vaccine,adsorbed Allergy Unknown Verified 09/18/19 19:41 Vital Signs Temp 98.7 F 09/19/19 05:41 Pulse 81 09/19/19 05:41 Resp 18 09/19/19 05:41 BP 138/87 09/19/19 05:41 Pulse Ox 98 09/19/19 05:41 Intake & Output 09/18/19 09/19/19 09/19/19 18:59 06:59 18:59 Weight 89.811 kg 80.739 kg Laboratory Last Values Urine Opiates Screen Not Detected (NotDetected) 09/18/19 19:30 Ur Oxycodone Screen Not Detected (NotDetected) 09/18/19 19:30 Urine Methadone Screen Not Detected (NotDetected) 09/18/19 19:30 Ur Propoxyphene Screen Not Detected (NotDetected) 09/18/19 19:30 Ur Barbiturates Screen Not Detected (NotDetected) 09/18/19 19:30 U Tricyclic Antidepress Not Detected (NotDetected) 09/18/19 19:30 Ur Phencyclidine Scrn Not Detected (NotDetected) 09/18/19 19:30 Ur Amphetamines Screen Not Detected (NotDetected) 09/18/19 19:30 U Methamphetamines Scrn Not Detected (NotDetected) 09/18/19 19:30 U Benzodiazepines Scrn Not Detected (NotDetected) 09/18/19 19:30 Urine Cocaine Screen Not Detected (NotDetected) 09/18/19 19:30 U Marijuana (THC) Screen Detected (NotDetected) H 09/18/19 19:30 09/19/19 09:46 09/19/19 13:08
[2019-09-19] MEDS ORDERED: ARIPiprazole IM SYRINGE 400 MG (NO CHARGE) IM ONE (14:00)
--- NOTE | 2019-09-19 15:54 | P.PN ---
Progress Note - Text Progress Note Date: 09/19/19 Patient placed in restraint at 1310 following an incident where he ripped a chair rail from the wall. I evaluated him when he was in restraint. He was alert and not struggling against the restraints. He did not understand why he was placed in restraints.
[2019-09-19 18:51] LABS: Hemoglobin A1C 5.8 % (4.0-6.0)
--- NOTE | 2019-09-19 20:07 | P.CONS ---
History of Present Illness - Reason for Consult Consult date: 09/19/19 - History of Present Illness Patient is a 21-year-old male with a PMH of hypertension and mild intermittent asthma who presented to the ED with delusions and possible psychosis. The patient was petitioned by his father after he found the patient "cleaning up a crime scene" as per the documentation. The patient was seen in the MHU. The patient was in good spirits and denied any active complaints. He denied fever, chills, chest pain, shortness of breath, nausea abdominal pain, or diarrhea. He underwent an extensive evaluation in the emergency room with WBC count 9.5, hemoglobin 15.8, platelets 198, sodium 139, potassium 4.6, BUN 20, creatinine 1.12, and urine toxicology positive for marijuana. Review of Systems Pertinent positives and negatives as discussed in HPI, a complete review of systems was performed and all other systems are negative. Past Medical History Past Medical History: Asthma History of Any Multi-Drug Resistant Organisms: None Reported Past Surgical History: No Surgical Hx Reported Past Anesthesia/Blood Transfusion Reactions: No Reported Reaction Past Psychological History: No Psychological Hx Reported Smoking Status: Former smoker Past Alcohol Use History: None Reported Past Drug Use History: Marijuana Medications and Allergies Home Medications Medication Instructions Recorded Confirmed Type Lisinopril [Zestril] 2.5 mg PO DAILY 08/15/18 09/18/19 History Albuterol Inhaler [Ventolin Hfa 2 puff INHALATION RT-Q4H PRN puff 08/17/18 09/18/19 Rx Inhaler] ARIPiprazole [Abilify Maintena] 300 mg IM Q28D 11/23/18 09/18/19 History Allergies Allergy/AdvReac Type Severity Reaction Status Date / Time pertussis vaccine,adsorbed Allergy Unknown Verified 09/18/19 19:41 Physical Exam Vitals: Vital Signs Temp Pulse Pulse Resp BP BP Pulse Ox 09/19/19 13:10 97.2 F L 84 18 110/69 98 09/19/19 05:41 98.7 F 81 18 138/87 98 09/18/19 22:52 70 16 136/86 Intake and Output 09/19/19 09/19/19 09/19/19 06:59 14:59 22:59 Other: Weight 80.739 kg General: non toxic, no distress, appears at stated age, normal weight Derm: no unusual rashes/lesions no unusual ecchymoses, warm, dry Head: atraumatic, normocephalic, symmetric Eyes: EOMI, no lid lag, anicteric sclera, pupils equal round reactive to light ENT: Nose and ears atraumatic, no thrush, no pharyngeal erythema Neck: No thyromegaly, no cervical lymphadenopathy, trachea midline, supple Mouth: no lip lesion, mucus membranes moist Cardiovascular: S1S2 reg, no murmur, positive posterior tibial pulse bilateral, no edema, capillary refill less than 2 seconds Lungs: CTA bilateral, no rhonchi, no rales , no accessory muscle use Abdominal: soft, nontender to palpation, no guarding, no appreciable organomegaly, normal bowel sounds Ext: no gross muscle atrophy, muscle strength 5 out of 5 in all 4 extremities grossly, no contractures, Neuro: CN II-XI grossly intact, light touch intact all 4 extremities, finger to nose within normal limits, Psych: Alert, oriented, flat affect Results CBC & Chem 7: 09/19/19 11:40 09/19/19 11:40 Assessment and Plan Plan: Hypertension -Continue with home med lisinopril -Currently well-controlled Mild intermittent asthma -Albuterol when necessary Psychosis -As per psychiatry Marijuana abuse -Advised on importance of cessation Thank you for allowing us to participate in the care of this patient. We will follow peripherally. Do not hesitate to contact us with questions. Someone can be reached from the [facility] hospitalist group at all hours of the day at [phone].
[2019-09-20] MEDS: ARIPiprazole 5 MG TAB PO SCH (08:43)
[2019-09-20] MEDS: LISINOPRIL 2.5 MG TAB PO SCH (08:43)
[2019-09-20] MEDS: ARIPiprazole 10 MG TAB PO SCH (09:26)
[2019-09-20] MEDS ORDERED: ARIPiprazole 5 MG TAB PO STA (09:26)
[2019-09-20] MEDS ORDERED: ARIPiprazole IM SYRINGE 400 MG (NO CHARGE) IM ONE (10:00)
--- NOTE | 2019-09-20 12:52 | P.PN ---
Progress Note - Text Progress Note Date: 09/20/19 Clinical Problems: Schizophrenia, poor compliance with psychiatric treatment Interim history: I reviewed the medical record, interviewed the patient, interviewed his father and discuss his treatment and treatment plan during team meeting. He had a brief episodes of seclusion or restraint yesterday following an incident where he destroyed a wall across from the dining area. He was placed on one-to-one since he was released from restraint. He is unable to give a coherent explanation of his behavior. At times, he makes vague references to God. His father completed a Petition for hospitalization and we submitted the petition with supporting clinical certificate still probate court for i [facility] hospitalization. His father stated that he did well after his discharge from this unit in July 2018 and while he was receiving monthly injections of Abilify. His condition gradually worsened after he stopped the Abilify. He developed a marked change his behavior the week prior to admission. His father described bizarre behaviors where he was stealing items, piling items on a vacant lot next to his father's business and complaining that facility was a crime scene. I reviewed the last progress note from [facility] dated 06/15/2019. He told the treating psychiatrist that he was not going to take any medications. He remains compliant with oral Abilify and accepted the first injection of Abilify Maintena this morning. Mental status exam: He is tall, restless, male with close cropped hair. He made eye contact but did not appear to fully attend to the interview. He was restless and pacing the unit. His speech was spontaneous with normal volume. His affect was stable and not inappropriate. He appears paranoid and expressed fragmented grandiose thoughts. His thinking was not coherent, logical or goal directed. He denies hallucinations and did not appear to responding to internal stimuli. Assessment: He remains seriously mentally ill and requires continued inpatient psychiatric hospitalization including one-to-one supervision. He'll require involuntary hospitalization with a combined treatment order to assure continued compliance once he is discharged Plan: Continue inpatient hospitalization. Continue suicide precautions. Tyshawn nue one-to-one. Increase Abilify to 10 mg daily. Abilify Maintena a 400 mg IM today. Submitted Petition and Clinical Certificate's for involuntary hospitalization. He participated in groups and therapeutic activities as tolerated and appropriate. Evaluate clinical status response to treatment daily basis.
[2019-09-21] MEDS: ARIPiprazole 10 MG TAB PO SCH (08:32)
[2019-09-21] MEDS: LISINOPRIL 2.5 MG TAB PO SCH (08:32)
--- NOTE | 2019-09-21 09:31 | P.PN ---
Progress Note - Text Progress Note Date: 09/21/19 Clinical Problems: Schizophrenia, poor compliance with psychiatric treatment Interim history: I reviewed the medical record and interviewed the patient. He was laying in bed and one-to-one was in attendance. He has no additional episodes of behavioral dyscontrol. He denied problems or concerns other than wishing to be discharged home. I inquired about the incident that led to the episode of seclusion or restraint. He alleged that he was "fixing" the broken wall. He stated that he will was damaged and he was agreeable to while under and to replace it. I informed him of my conversation with his father. His father stated that he had done much better when he was taking the Abilify and going to [facility]. He replied that he will not take the medication anymore. Mental status exam: He presented as a calm young male with close cropped hair who was laying comfortably in bed. He made eye contact and attended to the interview. His speech was spontaneous with normal volume. His affect was stable and not inappropriate. He appears paranoid and expressed f ragmented grandiose thoughts. His thinking was not coherent, logical or goal directed. He denies hallucinations and did not appear to responding to internal stimuli. Assessment: He remains seriously mentally ill and requires continued inpatient psychiatric hospitalization including one-to-one supervision. He will require involuntary hospitalization with a combined treatment order to assure continued compliance once he is discharged Plan: Continue inpatient hospitalization. Continue suicide precautions. Continue one-to-one. Continue Abilify to 10 mg daily. Continue Abilify Maintena a 400 mg IM monthly. Participated in groups and therapeutic activities as tolerated and appropriate. Evaluate clinical status and response to treatment daily basis.
[2019-09-21] MEDS: ACETAMINOPHEN TAB 325 MG TAB PO PRN (17:56)
[2019-09-22] MEDS: ARIPiprazole 10 MG TAB PO SCH (08:22)
[2019-09-22] MEDS: LISINOPRIL 2.5 MG TAB PO SCH (08:22)
[2019-09-22] MEDS: ACETAMINOPHEN TAB 325 MG TAB PO PRN (10:20)
--- NOTE | 2019-09-22 10:39 | P.PN ---
Progress Note - Text Progress Note Date: 09/22/19 Clinical Problems: Schizophrenia, poor compliance with psychiatric treatment Interim history: I reviewed the medical record and interviewed the patient. He remains on one-to-one He was laying in bed and one-to-one was in attendance. He has no additional episodes of behavioral dyscontrol. He or the date of his court hearing. We also reviewed his copies of the court documents. I showed him where he can find the date and time of the court hearing. He is refusing to take both lisinopril and Abilify. He alleges that he does not need these medications anymore. Mental status exam: He presented as a calm young male with close cropped hair who is intermittently pacing the hallways. He made eye contact and attended to the interview. His speech was spontaneous with normal volume. His affect was stable and not inappropriate. He appears paranoid and expressed fragmented grandiose thoughts. His thinking was not coherent, logical or goal directed. He denies hallucinations and did not appear to responding to internal stimuli. Assessment: He remains seriously mentally ill and requires continued inpatient psychiatric hospitalization including one-to-one supervision. He will require involuntary hospitalization with a combined treatment order to assure continued compliance once he is discharged Plan: Continue inpatient hospitalization. Continue suicide precautions. Continue one-to-one. Encourage him to take the Abilify to 10 mg daily. Continue Abilify Maintena a 400 mg IM monthly. Probate hearing scheduled for 09/27/2019. Participated in groups and therapeutic activities as tolerated and appropriate. Evaluate clinical status and response to treatment daily basis.
[2019-09-23] MEDS: ARIPiprazole 10 MG TAB PO SCH (09:13)
[2019-09-23] MEDS: LISINOPRIL 2.5 MG TAB PO SCH (09:13)
--- NOTE | 2019-09-23 12:26 | P.PN ---
Progress Note - Text Progress Note Date: 09/23/19 This is a psychiatric follow-up note is a cross coverage for Dr. Donaldson. Chief complaint: "I want to go home " Subjective: The patient has been seen today as follow-up, chart reviewed, case discussed with the treatment team. Patient reports fair sleep and appetite. Patient was superficial in his answers and generally denies any psychiatric symptoms. He denies depression, feeling hopeless or suicidal. He denies any severe mood swings, or homicidal thoughts. He denies any hallucinations, paranoid ideation, delusions could be elicited. Patient presents to some degree guarded. The patient is not compliant with his medications and denies any adverse reactions. The patient refused to take any psychiatric medications, and he is currently waiting for the court hearing on September 27. Review of other systems: Patient denies any physical symptoms besides what has been mentioned above. No breathing problems, no chest pain reported today. Objective: Vitals has been reviewed. Mental status examination; Appearance: The patient appears stated age, adequately groomed and dressed, no specific features. Gait/posture: Normal gait, Normal arm swinging, pacing. Attitude and behavior: engaged, cooperative, eye contact. Motor activity: Normal psychomotor activity Speech: Normal rate, tone. Mood: Anxious Affect: Constricted Thought form: goal-directed, linear, coherent. Thought content: Non-delusional, denies suicidal thoughts, denies homicidal thoughts, denies intentions or plans. To some degree guarded and paranoid. Perception: Denies any auditory or visual hallucinations Attention: No impairment. Patient was able to repeat serial 5. Orientation: Patient patient was fully oriented to time place person and situation. Insight: Patient has limited insight about his psychiatric disorder. Judgment: Patient has limited judgment about his psychiatric treatment. Assessment and diagnosis: Patient continued to refuse taking psychiatric medications. He was superficial in his answers and the certain degree guarded. Schizophrenia Plan: Continue inpatient level of care due to patient continued to refuse taking psychiatric medications and he still has episodes of severe agitation and presented with some paranoid symptoms. Continue treatment of schizophrenia Precautions: Continue one-to-one for safety-patient had an episode of severe violent behavior few days ago. Consider medical consultation if any acute medical issues arise. Provide the patient individual, group therapy, substance use disorder counseling to give better insight and learn coping skills. Medications: She continued to refuse psychiatric medications Abilify 10 mg daily and Abilify maintain a 400 mg IM monthly. Probate hearing on 09/27/19.
[2019-09-24] MEDS: LISINOPRIL 2.5 MG TAB PO SCH (08:17)
[2019-09-24] MEDS: ARIPiprazole 10 MG TAB PO SCH (08:17)
--- NOTE | 2019-09-24 11:39 | P.PN ---
Progress Note - Text Progress Note Date: 09/24/19 This is a psychiatric follow-up note is a cross coverage for Dr. Donaldson. Chief complaint: "I am waiting to go home " Subjective: The patient has been seen today as follow-up, chart reviewed, case discussed with the treatment team. Patient reports fair sleep and appetite, and reportedly he slept 5 hours last night. Patient continued to present very superficial and guarded, and to some degree paranoid. He denies any psychiatric symptoms, but again was very superficial in his answers. He denies depression, suicidal ideation, homicidal ideation, auditory or visual hallucinations, paranoid ideation, or manic symptoms. Patient continued to refuse taking any psychiatric medications, and he has very limited or no insight about his psychiatric illness and the need for treatment. Patient continued to explain the reason his father petitioned him because it was miscommunication and m isunderstanding without any further details. Objective: Vitals has been reviewed. Mental status examination; Appearance: The patient appears stated age, adequately groomed and dressed, no specific features. Gait/posture: Normal gait, Normal arm swinging, pacing. Attitude and behavior: engaged, cooperative, eye contact. Motor activity: Normal psychomotor activity Speech: Normal rate, tone. Mood: Anxious Affect: Constricted Thought form: goal-directed, linear, coherent. Thought content: Non-delusional, denies suicidal thoughts, denies homicidal thoughts, denies intentions or plans. To some degree guarded and paranoid. Perception: Denies any auditory or visual hallucinations Attention: No impairment. Patient was able to repeat serial 5. Orientation: Patient patient was fully oriented to time place person and situation. Insight: Patient has poor insight about his psychiatric disorder. Judgment: Patient has poor judgment about his psychiatric treatment. Assessment and diagnosis: Patient continued to refuse taking psychiatric medications. He was superficial in his answers and the certain degree guarded. Schizophrenia Plan: Continue inpatient level of care due to patient continued to refuse taking psychiatric medications and he still has episodes of severe agitation and presented with some paranoid symptoms. Continue treatment of schizophrenia Precautions: Continue one-to-one for safety-patient had an episode of severe violent behavior few days ago. Consider medical consultation if any acute medical issues arise. Provide the patient individual, group therapy, substance use disorder counseling to give better insight and learn coping skills. Medications: Patient continued to refuse psychiatric medications Abilify 10 mg daily and Abilify maintain a 400 mg IM monthly. Probate hearing on 09/27/19.
[2019-09-24 13:25] LABS: Appearance,Urine Clear (Clear); Bilirubin,Urine Negative (Negative); Blood,Urine Negative (Negative); Color,Urine Yellow; Glucose,Urine (UA) Negative (Negative); Ketones,Urine Negative (Negative); Leukocyte Esterase,Urine Negative (Negative); Nitrite,Urine Negative (Negative); PH, Urine 6.5 (5.0-8.0); Protein,Urine Negative (Negative); Specific Gravity,Urine 1.012 (1.001-1.035); Urobilinogen,Urine <2.0 mg/dL (<2.0)
[2019-09-25] MEDS: ARIPiprazole 10 MG TAB PO SCH (08:33)
[2019-09-25] MEDS: LISINOPRIL 2.5 MG TAB PO SCH (08:33)
[2019-09-25 11:00] VITALS: BMI 22.6
--- NOTE | 2019-09-25 14:04 | P.PN ---
Progress Note - Text Progress Note Date: 09/25/19 Clinical Problems: Schizophrenia, poor compliance with psychiatric treatment Interim history: I reviewed the medical record medical record and interviewed the patient. He remains on one-to-one supervision with a hospital social security benefits interviewer. He requested to speak with me about the upcoming probate hearing. I explained my reasons for supporting to requests for involuntary treatment. He replied that he "respectfully" disagrees and maintains that he does not require mental health treatment. Once again he affirmed that he will not "take the medicine" because "I don't need it." Mental status exam: He presented as a tall casually groomed male who was pleasant on approach. He made eye contact and appeared to attend to the interview. He had a blunted but bright facial expression. He had a rapid gait. His speech was spontaneous with normal rate and rhythm. His affect was stable. He ruminated about this hospitalization and involuntary treatment proceedings. He was guarded but did not express clear paranoid ideation or delusional thoughts. His thinking was concrete and perseverative. He showed poverty of content of speech He denied hallucinations and did not appear to be responding to internal stimuli Assessment: He remains guarded and suspicious. He has no insight into his mental illness or need for mental health treatment. Plan: Continue inpatient hospitalization. Probate hearing scheduled for 09/27/2019. Continue with one-to-one supervision by a personal security specialist. Encourage participation in therapeutic groups and activities as tolerated and appropriate. Evaluate clinical status response to treatment daily basis.
[2019-09-26] MEDS: ARIPiprazole 10 MG TAB PO SCH (08:51)
[2019-09-26] MEDS: LISINOPRIL 2.5 MG TAB PO SCH (08:51)
--- NOTE | 2019-09-26 14:06 | P.PN ---
Progress Note - Text Progress Note Date: 09/26/19 Clinical Problems: Schizophrenia, poor compliance with psychiatric treatment Interim history: I reviewed the medical record medical record and interviewed the patient. He remains on one-to-one supervision with a hospital security infrastructure engineer. He denied problems. His only concern is feeling the hospital. He continues to maintain that he does not have mental illness, does not need to be in the psychiatric hospital and does not need to take psychiatric medications. He continues to refuse to take oral Abilify. Mental status exam: He presented as a tall casually groomed male who was pleasant on approach. He made eye contact and appeared to attend to the interview. He had a blunted but bright facial expression. He had a rapid gait. His speech was spontaneous with normal rate and rhythm. His affect was stable. He ruminated about this hospitalization and involuntary treatment proceedings. He was guarded but did not express clear paranoid ideation or delusional thoughts. His thinking was concrete and perseverative. He showed poverty of content of speech He denied hallucinations and did not appear to be responding to internal stimuli Assessment: He remains guarded and suspicious. He has no insight into his mental illness or need for mental health treatment. Plan: Continue inpatient hospitalization. Probate hearing scheduled for 09/27/2019. Continue with one-to-one supervision by a lead security officer. Encourage participation in therapeutic groups and activities as tolerated and appropriate. Evaluate clinical status response to treatment daily basis.
[2019-09-27] MEDS: LISINOPRIL 2.5 MG TAB PO SCH (14:05)
[2019-09-27] MEDS: ARIPiprazole 10 MG TAB PO SCH (14:05)
--- NOTE | 2019-09-27 15:42 | P.PN ---
Progress Note - Text Progress Note Date: 09/27/19 Clinical Problems: Schizophrenia, poor compliance with psychiatric treatment Interim history: I reviewed the medical record medical record and interviewed the patient. He remains on one-to-one supervision with a hospital security services manager. He denied problems and his only concern was leaving the hospital. He denies that he has a mental illness, needs psychiatric hospitalization or treatment of mental illness. We had his probate hearing this morning. I left the court room before the ocular care technician made his decision but I was informed that he received a 60/90 day combined treatment order. Mental status exam: He presented as a tall casually groomed male who was pleasant on approach. He made eye contact and appeared to attend to the interview. He had a blunted but bright facial expression. He has rapid gait. His speech was spontaneous with normal rate and rhythm. His affect was stable. He ruminated about this hospitalization and involuntary treatment proceedings. He was guarded but did not express clear paranoid ideation or delusional thoughts. His thinking was concrete and perseverative. He showed poverty of content of speech He denied hallucinations and did not appear to be responding to internal stimuli Assessment: He remains guarded and suspicious. He has no insight into his mental illness or need for mental health treatment. Plan: Continue inpatient hospitalization. Continue Abilify 10 mg daily until he receives his second or third Abilify Maintenna injection. Continue with one-to-one supervision by a security operations manager. Encourage participation in therapeutic groups and activities as tolerated and appropriate. Evaluate clinical status response to treatment daily basis.
[2019-09-28] MEDS: LISINOPRIL 2.5 MG TAB PO SCH (09:09)
[2019-09-28] MEDS: ARIPiprazole 10 MG TAB PO SCH (09:09)
[2019-09-28] MEDS: ZIPRASIDONE 20 MG VIAL IM PRN (11:10)
[2019-09-28] MEDS: LORazepam 2 MG/ML INJ IM PRN (11:11)
[2019-09-28] MEDS ORDERED: ZIPRASIDONE 20 MG VIAL IM PRN (15:47)
--- NOTE | 2019-09-28 15:51 | P.PN ---
Progress Note - Text Progress Note Date: 09/28/19 Clinical Problems: Schizophrenia, poor compliance with psychiatric treatment Interim history: I reviewed the medical record medical record and interviewed the patient. He remains on one-to-one supervision with a hospital information security specialist. As during prior encounters, he denied problems and his only concern was to be discharged from the hospital. He continues to refuse to take oral psychotropic medications. In response to my questions about the reasons for his objection he replied "I am against medications." He alleged that the only circumstance where he would take medications as if he were "forced". We had considered discontinuing the one-to-one supervision. However, around 11:00 this morning he became acutely agitated during activity therapy. He began yelling. The therapist could not calm him and he would not give the room. We called a behavioral code but he left the activity room and went to his room. We are waiting for a copy of the probate order. Mental status exam: He presented as a tall casually groomed male who was pleasant on approach. He made eye contact and appeared to attend to the interview. He had a blunted facial expression. Later in the morning he was angry and irritable. He continues to walk rapidly as he is trying to escape one-to-one supervision. His speech was spontaneous with normal rate and rhythm. His affect was labile. He ruminated about this hospitalization and involuntary treatment proceedings. He was guarded and suspicious but did not express clear paranoid ideation or delusional thoughts. His thinking was concrete and perseverative. He showed poverty of content of speech. He denied hallucinations and did not appear to be responding to internal stimuli. He has no insight or understanding of his mental illness or need for mental health treatment. Assessment: He remains guarded and suspicious. He has no insight into his mental illness or need for mental health treatment. Plan: Continue inpatient hospitalization. Once we receive a copy of the probate order we will administer Geodon 20 mg IM if he refuses the 15 mg oral dose of Abilify. Continue Abilify Maintenna 400 mg monthly. Continue with one-to-one supervision by a oracle security consultant. Encourage participation in therapeutic groups and activities as tolerated and appropriate. Evaluate clinical status response to treatment daily basis.
[2019-09-29] MEDS: ARIPiprazole 10 MG TAB PO SCH (10:09)
[2019-09-29] MEDS: LISINOPRIL 2.5 MG TAB PO SCH (10:11)
--- NOTE | 2019-09-29 11:38 | P.PN ---
Progress Note - Text Progress Note Date: 09/29/19 Clinical Problems: Schizophrenia, poor compliance with psychiatric treatment Interim history: I reviewed the medical record medical record and interviewed the patient. He remains on one-to-one supervision with a hospital security systems specialist. He has no incidents of behavioral dyscontrol since the episode yesterday morning. We gave him a copy of the probate order for treatment. He stated that he will not take medications even though the treatment was ordered by the [place] judge. He denies that he has mental illness and denies needs treatment for mental illness. He talked about "not have anything anything wrong with my ROSY receptors." There is reported that he took the oral Abilify without incident. Mental status exam: He presented as a tall casually groomed male who was pleasant on approach. He made eye contact and appeared to attend to the interview. He had a blunted facial expression. He continues to walk rapidly as he is trying to escape one-to-one supervision. His speech was spontaneous with normal rate and rhythm. His affect was labile. He ruminated about this hospitalization and involuntary treatment. He was guarded and suspicious but did not express clear paranoid ideation or delusional thoughts. His thinking was concrete and perseverative. He showed poverty of content of speech. He denied hallucinations and did not appear to be responding to internal stimuli. He has no insight or understanding of his mental illness or need for mental heal th treatment. Assessment: He remains guarded and suspicious. He has no insight into his mental illness or need for mental health treatment. Plan: Continue inpatient hospitalization. Geodon 20 mg IM if he refuses the 15 mg oral dose of Abilify. Continue Abilify Maintenna 400 mg monthly. Continue with one-to-one supervision by a security dispatcher. Encourage participation in therapeutic groups and activities as tolerated and appropriate. Evaluate clinical status response to treatment daily basis.
[2019-09-30] MEDS: ARIPiprazole 10 MG TAB PO SCH (09:15)
[2019-09-30] MEDS: LISINOPRIL 2.5 MG TAB PO SCH (09:16)
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
[2019-10-01] MEDS: LISINOPRIL 2.5 MG TAB PO SCH (09:15)
[2019-10-01] MEDS: ARIPiprazole 10 MG TAB PO SCH (09:15)
--- NOTE | 2019-10-01 12:50 | P.PN ---
Progress Note - Text Interval history: The patient is found at the front end software developer he follows me to an interview room. Indicates his mood is fine. He states he's looking forward to being discharged. He states he was ready for discharge on the first day he arrived here. He continues to be on one-to-one was security due to impulsive actions. We discussed his prior removal of drywall from the mental health unit. He states that it needed to be fixed and he decided to remove it because it needed to be done. He states now he is aware that he can put in work tickets for things like that. He reports that he sleeping at night appetite is stable. He has no questions or concerns regarding his medication other than to know when he is getting his next Abilify maintena injection. Mental status exam: The patient's a tall thin male appearing his stated age. Eye contact is appropriate speech is fluent spontaneous nonpressured. He has a staring eye contact. Affect is fairly constricted. He quickly denies having any suicidal or homicidal thoughts he dismisses the possibility of having any auditory or visual hallucinations or specific delusio ns. He demonstrates no objective evidence of psychosis during our brief session. He was observed on the mental health unit earlier this morning. He appeared to be trying to outpace the cyber security systems engineer performing the one-to-one in terms of gait. Insight and judgment are impaired. He demonstrates no verbal or physical aggressiveness he demonstrates no involuntary repetitive movements. Plan: The patient may be underreporting symptoms but he is demonstrating some improvement since he has been here. We will consider discontinuing the one-to-one supervision tomorrow. We will monitor him for safety and encourage participation in the milieu. He indicates his father visited last evening social work will be able to contact him for collateral information. Interviewed.
[2019-10-01] MEDS: LORazepam 2 MG/ML INJ IM PRN (19:43)
[2019-10-01] MEDS: ZIPRASIDONE 20 MG VIAL IM PRN (19:43)
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
[2019-10-02] MEDS: ARIPiprazole 15 MG TAB PO SCH (08:43)
[2019-10-02] MEDS: LISINOPRIL 2.5 MG TAB PO SCH (08:44)
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
[2019-10-03] MEDS: LISINOPRIL 2.5 MG TAB PO SCH (09:10)
[2019-10-03] MEDS: ARIPiprazole 15 MG TAB PO SCH (09:10)
--- NOTE | 2019-10-03 14:43 | P.PN ---
Progress Note - Text Progress Note Date: 10/03/19 Clinical Problems: Schizophrenia, rule out schizoaffective disorder poor compliance with psychiatric treatment Interim history: I reviewed the medical record and interviewed the patient. We discontinued one-to-one yesterday. He had no episodes of agitation or behavioral dyscontrol since. He has been taking the oral Abilify daily without incident. Mental status exam: He presented as a tall casually groomed male who was pleasant on approach. He made eye contact and appeared to attend to the interview. He had a bright facial expression. He he works rapidly.. His speech was spontaneous with normal rate and rhythm. His affect was stable and appropriate. He ruminated about discharge. He was knocked guarded and suspicious and did not express clear paranoid ideation or delusional thoughts. His thinking was concrete and perseverative. He showed poverty of content of speech. He denied hallucinations and did not appear to be responding to internal stimuli. He has no insight or understanding of his mental illness or need for mental health treatment. Assessment: He is less guarded and suspicious. He has no insight into his mental illness or need for mental health treatment. Plan: Continue inpatient hospitalization. Geodon 20 mg IM if he refuses the 15 mg oral dose of Abilify. Continue Abilify Maintenna 400 mg monthly. Encourage participation in therapeutic groups and activities as tolerated and appropriate. Evaluate clinical status response to treatment daily basis.
[2019-10-04] MEDS: ARIPiprazole 15 MG TAB PO SCH (09:20)
[2019-10-04] MEDS: LISINOPRIL 2.5 MG TAB PO SCH (09:21)
--- NOTE | 2019-10-04 14:23 | P.PN ---
Progress Note - Text Progress Note Date: 10/04/19 Clinical Problems: Schizophrenia, rule out schizoaffective disorder poor compliance with psychiatric treatment Interim history: I reviewed the medical record and interviewed the patient. Since we discontinued one-to-one he has no episodes of agitation or behavioral dyscontrol. He remains compliant with oral Abilify. He is actively attending therapeutic groups and activities. He is sleeping between 4 and 6 hours per night. Mental status exam: He presented as a tall casually groomed male who was pleasant on approach. He made eye contact and appeared to attend to the interview. He had a bright facial expression. His speech was spontaneous with normal rate and rhythm. His affect was stable and appropriate. He has not been ruminating about discharge. He was not guarded and suspicious and did not express clear paranoid ideation or delusional thoughts. His thinking was concrete. He showed poverty of content of speech. He denied hallucinations and did not appear to be responding to internal stimuli. He has no insight or understanding of his mental illness or need for mental health treatment. Assessment: Overall he is much improved from admission but has no insight into his mental illness or need for mental health treatment. Plan: Continue inpatient hospitalization. Continue seeing precautions. Geodon 20 mg IM if he refuses the 15 mg oral dose of Abilify. Continue Abilify Maintenna 400 mg monthly. Plan for discharge on 10/05/2019 with follow-up [facility]. Encourage participation in therapeutic groups and activities as tolerated and appropriate. Evaluate clinical status response to treatment daily basis.
[2019-10-05 06:45] VITALS: BP 126/62; PULSE 50; RESP 18; TEMP 97.8
[2019-10-05] MEDS: ARIPiprazole 15 MG TAB PO SCH (08:24)
[2019-10-05] MEDS: LISINOPRIL 2.5 MG TAB PO SCH (08:25)
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
== END 2019-10-05 14:51 | disposition home or self-care (01) | DRG 885 ==
LOC: EC 17:59 → 3MHU 22:25
PROVIDERS: ADMIT Psychiatry & Neurology Psychiatry; ATTEND Psychiatry & Neurology Psychiatry
DX: F20.0 Paranoid schizophrenia (principal); F12.90 Cannabis use, unspecified, uncomplicated; Z71.51 Drug abuse counseling and surveillance of drug abuser; I10 Essential (primary) hypertension; J45.20 Mild intermittent asthma, uncomplicated; Z78.1 Physical restraint status; Z79.899 Other long term (current) drug therapy; Z87.891 Personal history of nicotine dependence; Z91.19 Patient's noncompliance with other medical treatment and regimen; T43.96XA Underdosing of unspecified psychotropic drug, initial encounter; Z91.128 Patient's intentional underdosing of medication regimen for other reason
CPT/HCPCS: 80053; 80061; 80306; 81003; 82075; 83036; 84443; 85025; 90686; 90732; 93005; 99285

== ENCOUNTER 2020-06-13 08:27 | Emergency (ER) | payer OTHER ==
[2020-06-13 08:32] VITALS: RESP 18
[2020-06-13] MEDS ORDERED: ACETAMINOPHEN TAB 500 MG TAB PO STA (08:49)
[2020-06-13] MEDS ORDERED: ALBUTEROL HFA INHALER INHALATION STA (08:50)
[2020-06-13] MEDS ORDERED: methylPREDNISolone SOD SUCCI 125 MG/2 ML VIAL IM ONE (08:50)
--- NOTE | 2020-06-13 08:57 | ED ---
URI HPI - General Chief Complaint: Upper Respiratory Infection Stated Complaint: chest pain Time Seen by Provider: 06/13/20 08:38 Source: patient, RN notes reviewed, old records reviewed Mode of arrival: ambulatory Limitations: no limitations - History of Present Illness Initial Comments: 25-year-old male who presents emergency department today for evaluation for concern for chills cause abdominal pain and vomiting for the past 2 days. He reports he has not had a history of sick contacts is aware. He states that he's had no fevers reported at home. His take vitamin C at home. He does have history of asthma and is a smoker. He states he is trying to quit. - Related Data Previous Rx's Medication Instructions Recorded Acetaminophen Tab [Tylenol Tab] 1,000 mg PO Q6HR #20 tablet 06/13/20 Albuterol Inhaler [Ventolin Hfa 1 puff INHALATION TID #1 inhaler 06/13/20 Inhaler] Azithromycin [Zithromax] 250 mg PO DIRECTED #6 tab 06/13/20 predniSONE [Deltasone] 20 mg PO DIRECTED #12 tab 06/13/20 Allergies Allergy/AdvReac Type Severity Reaction Status Date / Time pertussis vaccine,adsorbed Allergy Unknown Verified 06/13/20 09:39 Review of Systems ROS Statement: Those systems with pertinent positive or pertinent negative responses have been documented in the HPI. ROS Other: All systems not noted in ROS Statement are negative. Past Medical History Past Medical History: Asthma History of Any Multi-Drug Resistant Organisms: None Reported Past Surgical History: No Surgical Hx Reported Past Anesthesia/Blood Transfusion Reactions: No Reported Reaction Past Psychological History: No Psychological Hx Reported Smoking Status: Current every day smoker Past Alcohol Use History: None Reported Past Drug Use History: None Reported, Marijuana General Exam - General Exam Comments Initial Comments: Alert and oriented 25-year-old male. No significant distress. Limitations: no limitations General appearance: alert, in no apparent distress Head exam: Present: atraumatic, normocephalic, normal inspection Eye exam: Present: normal appearance, PERRL, EOMI. Absent: scleral icterus, conjunctival injection, periorbital swelling ENT exam: Present: normal exam, mucous membranes moist Neck exam: Present: normal inspection. Absent: tenderness, meningismus, lymphadenopathy Respiratory exam: Present: wheezes (Patient has diffuse wheezing.). Absent: normal lung sounds bilaterally, respiratory distress, rales, rhonchi, stridor Cardiovascular Exam: Present: regular rate, normal rhythm, normal heart sounds. Absent: systolic murmur, diastolic murmur, rubs, gallop, clicks GI/Abdominal exam: Present: soft, normal bowel sounds. Absent: distended, tenderness, guarding, rebound, rigid Extremities exam: Present: normal inspection, full ROM, normal capillary refill. Absent: tenderness, pedal edema, joint swelling, calf tenderness Back exam: Present: normal inspection Neurological exam: Present: alert, oriented X3, CN II-XII intact Psychiatric exam: Present: normal affect, normal mood Course Vital Signs 06/13/20 08:29 Temperature 99.5 F Pulse Rate 90 Respiratory 18 Rate Blood Pressure 125/80 O2 Sat by Pulse 97 Oximetry Medical Decision Making - Medical Decision Making 25-year-old male presents emergency department today for concern for cough wheezing filling up his lungs are fire he also relates some vomiting and green phlegm yesterday. Symptoms started 2 days ago. The same his low-grade temperature 99.1. Clinical exam here is wheezing. Patient was given albuterol treatment. He was swabbed for covert. Chest x-ray is negative for any significant process. We'll treat this Patient at this time for bronchitis and wheezing with steroids and advised close follow-up with primary care physician. Discussed close return parameters and also writing an albuterol inhaler. 06/13/20 08:56 EKG performed and shows normal sinus rhythm EKG. Ventricular rate of 79 bpm.. Vitals 150 ms. QS duration is 80 ms. QT QTc is 356/408 ms. - Radiology Data Radiology results: report reviewed Chest x-ray is negative for any acute cardiopulmonary process. No significant change from prior. Disposition Clinical Impression: URI (upper respiratory infection), Asthmatic bronchitis Disposition: HOME SELF-CARE Condition: Good Instructions (If sedation given, give patient instructions): Upper Respiratory Infection (ED) Additional Instructions: Patient advised to [facility] until results of Coban test. Patient should take medications as prescribed. Stop smoking. Follow-up with PCP if symptoms continue to persist or worsen he can return to the ER. Prescriptions: predniSONE [Deltasone] 20 mg PO DIRECTED #12 tab Acetaminophen Tab [Tylenol Tab] 1,000 mg PO Q6HR #20 tablet Albuterol Inhaler [Ventolin Hfa Inhaler] 1 puff INHALATION TID #1 inhaler Azithromycin [Zithromax] 250 mg PO DIRECTED #6 tab Is patient prescribed a controlled substance at d/c from ED?: No Referrals: [facility] [Primary Care Provider] - 1-2 days Time of Disposition: 09:49
--- NOTE | 2020-06-13 09:18 | XR ---
EXAMINATION TYPE: XR chest 2V DATE OF EXAM: 06/13/2020 COMPARISON: Chest x-ray October 03, 2012. HISTORY: Chest pain and cough. TECHNIQUE: Frontal and lateral views of the chest are obtained. FINDINGS: There is no focal air space opacity, pleural effusion, or pneumothorax seen. The cardiac silhouette size is within normal limits. The osseous structures are intact. IMPRESSION: No acute cardiopulmonary process. No significant change from prior.
[2020-06-13 10:15] VITALS: BP 116/72; PULSE 66; TEMP 98.2
== END 2020-06-13 10:14 | disposition home or self-care (01) ==
LOC: EC 08:27
DX: J45.909 Unspecified asthma, uncomplicated (principal); J06.9 Acute upper respiratory infection, unspecified; F17.200 Nicotine dependence, unspecified, uncomplicated; Z20.828 Contact with and (suspected) exposure to other viral communicable diseases; Z88.7 Allergy status to serum and vaccine
CPT/HCPCS: 99284; 96372; 94640; 71046; U0003; J2930

== ENCOUNTER 2020-07-29 16:20 | Emergency (ER) | payer OTHER ==
--- NOTE | 2020-07-29 17:00 | ED ---
General Adult HPI - General Chief complaint: Psychiatric Symptoms Stated complaint: Mental health Time Seen by Provider: 07/29/20 16:26 Source: patient, police, RN notes reviewed, old records reviewed Mode of arrival: ambulatory Limitations: no limitations - History of Present Illness Initial comments: 25-year-old male patient is ED for evaluation psychiatric disorder. Patient was picked up on a psych court order. Patient denies any acute complaints. Denies any suicidal ideations or any physical complaints. Systemic: Pt denies fatigue, fever/chills, rash. Pt denies weakness, night sweats, weight loss. Neuro: Pt denies headache, visual disturbances, syncope or pre-syncope. HEENT: Pt denies ocular discharge or irritation, otalgia, rhinorrhea, pharyngitis or notable lymphadenopathy. Cardiopulmonary: Pt denies chest pain, SOB, heart palpitations, dyspnea on exertion. Abdominal/GI: Pt denies abdominal pain, n/v/d. : Pt denies dysuria, burning w/ urination, frequency/urgency. Denies new onset urinary or bowel incontinence. MSK: Pt denies myalgia, loss of strength or function in extremities. Neuro: Pt denies new onset weakness, paresthesias. - Related Data Previous Rx's Medication Instructions Recorded Acetaminophen Tab [Tylenol Tab] 1,000 mg PO Q6HR #20 tablet 06/13/20 Albuterol Inhaler [Ventolin Hfa 1 puff INHALATION TID #1 inhaler 06/13/20 Inhaler] Azithromycin [Zithromax] 250 mg PO DIRECTED #6 tab 06/13/20 predniSONE [Deltasone] 20 mg PO DIRECTED #12 tab 06/13/20 Allergies Allergy/AdvReac Type Severity Reaction Status Date / Time pertussis vaccine,adsorbed Allergy Unknown Verified 07/29/20 16:25 Review of Systems ROS Statement: Those systems with pertinent positive or pertinent negative responses have been documented in the HPI. ROS Other: All systems not noted in ROS Statement are negative. Past Medical History Past Medical History: Asthma History of Any Multi-Drug Resistant Organisms: None Reported Past Surgical History: No Surgical Hx Reported Past Anesthesia/Blood Transfusion Reactions: No Reported Reaction Past Psychological History: No Psychological Hx Reported Smoking Status: Former smoker Past Alcohol Use History: None Reported Past Drug Use History: Marijuana General Exam - General Exam Comments Initial Comments: Constitutional: NAD, AOX3, Pt has pleasant affect. HEENT: NC/AT, trachea midline, neck supple, no lymphadenopathy. External ears appear normal, without discharge. Mucous membranes moist. Eyes PERRLA, EOM intact. There is no scleral icterus. No pallor noted. Cardiopulmonary: RRR, no murmurs, rubs or gallops, no JVD noted. Lungs CTAB in anterior and posterior negron. No peripheral edema. Abdominal exam: Abdomen soft and non-distended. Abdomen non-tender to palpation in all 4 quadrants. Bowel sounds active in LLQ. No hepatosplenomegaly. No ecchymosis Neuro: CN II-XII grossly intact. No nuchal rigidity. No raccon eyes, no douglas sign, no hemotympanum. No cervical spinal tenderness. MSK: Full active ROM in upper and lower extremities, 5/5 strength. Limitations: no limitations Course Vital Signs 07/29/20 07/29/20 16:22 21:02 Temperature 98.2 F Pulse Rate 56 L Respiratory 18 18 Rate Blood Pressure 142/89 O2 Sat by Pulse 99 Oximetry Medical Decision Making - Medical Decision Making 25-year-old male patient to ED for psychiatric evaluation. Patient denies suicidal or homicidal ideations. Evaluated by EPS, Recommends discharge. Follow-up with primary care provider and return to ER if any worsening symptoms. Case discussed with Dr. Ross. - Lab Data Lab Results 07/29/20 Range/Units 16:45 Urine Opiates Screen Not Detected (NotDetected) Ur Oxycodone Screen Not Detected (NotDetected) Urine Methadone Screen Not Detected (NotDetected) Ur Propoxyphene Screen Not Detected (NotDetected) Ur Barbiturates Screen Not Detected (NotDetected) U Tricyclic Antidepress Not Detected (NotDetected) Ur Phencyclidine Scrn Not Detected (NotDetected) Ur Amphetamines Screen Not Detected (NotDetected) U Methamphetamines Scrn Not Detected (NotDetected) U Benzodiazepines Scrn Not Detected (NotDetected) Urine Cocaine Screen Not Detected (NotDetected) U Marijuana (THC) Screen Not Detected (NotDetected) Disposition Clinical Impression: Evaluation by psychiatric service required Disposition: HOME SELF-CARE Condition: Stable Instructions (If sedation given, give patient instructions): Depression (ED) Additional Instructions: Follow up with primary care provider tomorrow. Return to ER if any worsening symptoms. Is patient prescribed a controlled substance at d/c from ED?: No Referrals: [facility] [Primary Care Provider] - 1-2 days
[2020-07-29 17:20] LABS: Amphetamine Screen,Urine Not Detected (NotDetected); Barbiturate Screen,Urine Not Detected (NotDetected); Benzodiazepines Screen,Urine Not Detected (NotDetected); Cocaine Screen,Urine Not Detected (NotDetected); Methadone Screen, Urine Not Detected (NotDetected); Opiate Screen,Urine Not Detected (NotDetected); Oxycodone Screen, Urine Not Detected (NotDetected); Phencyclidine Screen,Urine Not Detected (NotDetected); Tricyclic Antidepressant,Urine Not Detected (NotDetected); Urn Cannabinoid Scrn Not Detected (NotDetected)
[2020-07-29 23:57] VITALS: BP 135/60; PULSE 61; RESP 16; TEMP 97.9
== END 2020-07-29 23:55 | disposition home or self-care (01) ==
LOC: EC 16:20
DX: Z04.6 Encounter for general psychiatric examination, requested by authority (principal); Z88.7 Allergy status to serum and vaccine; Z87.891 Personal history of nicotine dependence
CPT/HCPCS: 80306; 82075; 99284

== ENCOUNTER 2020-07-31 12:50 | Inpatient (IN) | payer MEDICAID, OTHER ==
--- NOTE | 2020-07-31 13:10 | ED ---
General Adult HPI - General Chief complaint: Psychiatric Symptoms Stated complaint: Mental Health Time Seen by Provider: 07/31/20 13:00 Source: patient, family, RN notes reviewed Mode of arrival: ambulatory Limitations: no limitations - History of Present Illness Initial comments: Patient is a 25-year-old male presenting to the emergency department for mental health evaluation. Patient states he was told by the court to come in. Patient admits to being off his medications for the past 3 months. Patient is supposedly court ordered to take these medications. Patient denies any problems. Patient denies hallucinations. No suicidal or homicidal thoughts. No physical complaints. Father states patient has been acting paranoid and looking out the window. Patient has been excessive and patient has been hostile. Patient was running around and screaming at the top of his lungs and scaring the neighbors. - Related Data Home Medications Medication Instructions Recorded Confirmed No Known Home Medications 07/31/20 07/31/20 Allergies Allergy/AdvReac Type Severity Reaction Status Date / Time pertussis vaccine,adsorbed Allergy Unknown Verified 07/31/20 14:10 Review of Systems ROS Statement: Those systems with pertinent positive or pertinent negative responses have been documented in the HPI. ROS Other: All systems not noted in ROS Statement are negative. Constitutional: Denies: fever Eyes: Denies: eye pain ENT: Denies: ear pain Respiratory: Denies: cough Cardiovascular: Denies: chest pain Endocrine: Denies: fatigue Gastrointestinal: Denies: abdominal pain Genitourinary: Denies: dysuria Musculoskeletal: Denies: back pain Skin: Denies: rash Neurological: Denies: weakness Psychiatric: Reports: as per HPI Past Medical History Past Medical History: Asthma History of Any Multi-Drug Resistant Organisms: None Reported Past Surgical History: No Surgical Hx Reported Past Anesthesia/Blood Transfusion Reactions: No Reported Reaction Past Psychological History: No Psychological Hx Reported Smoking Status: Former smoker Past Alcohol Use History: None Reported Past Drug Use History: Marijuana General Exam Limitations: no limitations General appearance: alert, in no apparent distress Head exam: Present: atraumatic, normocephalic Eye exam: Present: normal appearance Neck exam: Present: normal inspection Respiratory exam: Present: normal lung sounds bilaterally Cardiovascular Exam: Present: regular rate, normal rhythm GI/Abdominal exam: Present: soft. Absent: tenderness Extremities exam: Present: normal inspection Neurological exam: Present: alert. Absent: motor sensory deficit Psychiatric exam: Present: other (Patient appears mildly agitated) Skin exam: Present: normal color Course Vital Signs 07/31/20 12:51 Temperature 98.7 F Pulse Rate 82 Respiratory 18 Rate Blood Pressure 137/85 O2 Sat by Pulse 97 Oximetry Procedures - Restraint - Face to Face Restraint Occurrence 1 Patient's Immediate Situation: Endangers self safety, Endangers others' safety, Endangers staff safety, Violent behavior Patient's Reaction to the Intervention: Angry Patient's Medical & Behavioral Condition: Awake, Alert Need to Continue or Terminate Restraint or Seclusion: Continue Face to Face Eval of Restraint Date: 07/31/20 Face to Face Eval of Restraint Time: 17:12 Medical Decision Making - Medical Decision Making Patient seen by mental health services with plans for admission. Patient did become aggressive with staff and did need restraints. Positive clinical certificate completed. - Lab Data Lab Results 07/31/20 Range/Units 13:28 Urine Opiates Screen Not Detected (NotDetected) Ur Oxycodone Screen Not Detected (NotDetected) Urine Methadone Screen Not Detected (NotDetected) Ur Propoxyphene Screen Not Detected (NotDetected) Ur Barbiturates Screen Not Detected (NotDetected) U Tricyclic Antidepress Not Detected (NotDetected) Ur Phencyclidine Scrn Not Detected (NotDetected) Ur Amphetamines Screen Not Detected (NotDetected) U Methamphetamines Scrn Not Detected (NotDetected) U Benzodiazepines Scrn Not Detected (NotDetected) Urine Cocaine Screen Not Detected (NotDetected) U Marijuana (THC) Screen Not Detected (NotDetected) Disposition Clinical Impression: Psychosis Disposition: TRANSFER TO PSYCH HOSP/UNIT Is patient prescribed a controlled substance at d/c from ED?: No Referrals: [facility] [Primary Care Provider] - 1-2 days Decision Time: 17:13
[2020-07-31 14:01] LABS: Amphetamine Screen,Urine Not Detected (NotDetected); Barbiturate Screen,Urine Not Detected (NotDetected); Benzodiazepines Screen,Urine Not Detected (NotDetected); Cocaine Screen,Urine Not Detected (NotDetected); Methadone Screen, Urine Not Detected (NotDetected); Opiate Screen,Urine Not Detected (NotDetected); Oxycodone Screen, Urine Not Detected (NotDetected); Phencyclidine Screen,Urine Not Detected (NotDetected); Tricyclic Antidepressant,Urine Not Detected (NotDetected); Urn Cannabinoid Scrn Not Detected (NotDetected)
[2020-07-31] MEDS ORDERED: LORazepam 2 MG/ML INJ IM STA ×2 (16:53→17:28)
[2020-07-31] MEDS ORDERED: ZIPRASIDONE 20 MG VIAL IM STA (16:53)
[2020-07-31] MEDS ORDERED: MAG HYDROX/AL HYDROX/SIMETH 30 ML CUP PO PRN (18:31)
[2020-07-31] MEDS ORDERED: MAGNESIUM HYDROXIDE 2,400 MG/10 ML CUP PO PRN (18:31)
[2020-07-31] MEDS ORDERED: ACETAMINOPHEN TAB 325 MG TAB PO PRN (18:31)
[2020-07-31] MEDS ORDERED: LORazepam 1 MG TAB PO PRN (18:31)
--- NOTE | 2020-07-31 20:27 | P.EN ---
NOTIFIED of new consult however , patient was medicated in the ED and sleeping at this time please notify sound physicians when patient is ready for evaluation
--- NOTE | 2020-08-01 00:46 | P.EN ---
I discussed with RN again about this patient when i was on the unit, he is still sleeping and not ready for evaluation yet.
[2020-08-01] MEDS: LORazepam 2 MG/ML INJ IM PRN (05:25)
[2020-08-01] MEDS: ZIPRASIDONE 20 MG VIAL IM PRN (05:25)
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
[2020-08-01] MEDS: PALIPERIDONE 3 MG TAB.ER.24 PO SCH (21:40)
--- NOTE | 2020-08-02 10:04 | P.PN ---
Progress Note - Text Progress Note Date: 08/02/20 Interval History: Patient was seen sitting in group and was directable and agreeable to speak with data analyst report writer in the office. Patient is not reporting any significant psychiatric pathology today. He expresses a strong desire for discharge. He was informed that he would have to wait until the court assesses completed before discharges even considered. At this time patient denies any suicidal or homicidal ideations, intent or plan. Patient denies any auditory, visual hallucinations and denies any paranoia or delusions. Patient continues to refuse any medications and reports that he does not need them. Mental Status Exam: General Appearance: Patient appears to be stated age is alert, directable, and cooperative. Behavior: Patient is calmly seated without any agitated behavior. Inappropriate laughter. Speech: Patient's speech is fluent and nonpressured. Mood/Affect: Mood is "doing fine." Affect is odd, intense, bright. Suicidality/Homicidality: Patient denies having any suicidal or homicidal ideation intent or plan. Perceptions: Patient denies any visual hallucinations and denies any auditory hallucinations Though content/process: There is no evidence of any delusional thought content and thought process is linear and goal-directed. Memory and concentration: AOX3, grossly intact for the purposes of this session Judgment and insight: Very poor. Assessment Schizophrenia Plan: -Patient is admitted under involuntary status to [facility] for stabilization of psychiatric symptoms and safety. A second certification was completed and along with petition will be filed for court. He continues to meet criteria for inpatient psychiatric treatment. -Medications: Patient has had numerous trials with Lita and is currently refusing the medication. Will start patient on Invega 3 mg by mouth twice a day with plans to transition the patient to a long-acting injectable medication due to lack of adherence to his treatment regimen. -When necessary Ativan and Geodon for agitation/aggression. -SW on board for discharge planning. Encouraged the patient to participate in milieu.
[2020-08-02] MEDS: PALIPERIDONE 3 MG TAB.ER.24 PO SCH ×2 (10:41→21:34)
[2020-08-02] MEDS ORDERED: ZIPRASIDONE 20 MG VIAL IM ONE ×2 (11:56→16:35)
[2020-08-02] MEDS ORDERED: WATER FOR INJECTION, STERILE 10 ML IV ONE (11:56)
[2020-08-02] MEDS: LORazepam 2 MG/ML INJ IM PRN (11:59)
[2020-08-02] MEDS: ZIPRASIDONE 20 MG VIAL IM PRN (11:59)
[2020-08-02] MEDS: diphenhydrAMINE 50 MG/ML 1 ML VIAL IM PRN (12:06)
[2020-08-02] MEDS: HALOPERIDOL LACTATE 5 MG/ML 1 ML VIAL IM PRN (12:07)
--- NOTE | 2020-08-02 12:20 | P.MHFACE ---
Face to Face Restrain/Seclus - Evaluation Patient's Immediate Situation: Endangers others' safety, Endangers staff safety Patient's Reaction to the Intervention: Angry, Suspicious Patient's Medical & Behavioral Condition: Awake, Alert, Agitated Need to Continue or Terminate Restraint or Seclusion: Continue
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
[2020-08-03] MEDS: PALIPERIDONE 3 MG TAB.ER.24 PO SCH ×2 (09:43→21:17)
[2020-08-04] MEDS: diphenhydrAMINE 50 MG/ML 1 ML VIAL IM PRN (09:28)
[2020-08-04] MEDS: LORazepam 2 MG/ML INJ IM PRN (09:28)
[2020-08-04] MEDS: HALOPERIDOL LACTATE 5 MG/ML 1 ML VIAL IM PRN (09:29)
[2020-08-04] MEDS: PALIPERIDONE 3 MG TAB.ER.24 PO SCH ×2 (09:36→21:23)
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
[2020-08-05] MEDS: PALIPERIDONE 3 MG TAB.ER.24 PO SCH ×2 (09:26→20:15)
--- NOTE | 2020-08-05 10:43 | P.PN ---
Progress Note - Text Progress Note Date: 08/05/20 Interval History: Patient was seen watching TV and relaxing in the common area and was directable and agreeable to speak with sba underwriter. Patient reports that he is ready to go home. He is currently awaiting to meet with the associate attorney for possible deferral. At this time patient denies any suicidal or homical ideations, intent or plan. Patient denies any auditory, visual hallucinations and denies any paranoia or delusions. He has not been taking any medications and refuses to do so. Mental Status Exam: General Appearance: Patient appears to be stated age is alert, directable, and cooperative. Behavior: Patient is calmly seated without any agitated behavior. Speech: Patient's speech is fluent and nonpressured. Mood/Affect: Mood is improving mildly, affect is intense Suicidality/Homicidality: Patient denies having any suicidal or homicidal ideation intent or plan. Perceptions: Patient denies any visual hallucinations and denies any auditory hallucinations Though content/process: There is no evidence of any delusional thought content and thought process is linear and goal-directed. Memory and concentration: AOX3, grossly intact for the purposes of this session Judgment and insight: Very poor Assessment Schizophrenia Plan: -Patient continues to meet criteria for inpatient psychiatric admission for symptom stabilization and safety. Patient is awaiting to meet with the associate attorney for possible deferral. We are awaiting court order. -Medications: Patient has had numerous trials with Lita and is currently refusing the medication. Patient has been refusing Invega 3 mg by mouth twice a day -When necessary Ativan and Haldol/Benadryl for agitation/aggression. -SW on board for discharge planning. Encouraged the patient to participate in milieu.
[2020-08-06] MEDS: LORazepam 2 MG/ML INJ IM PRN ×2 (09:40→16:42)
[2020-08-06] MEDS: diphenhydrAMINE 50 MG/ML 1 ML VIAL IM PRN ×2 (09:52→16:41)
[2020-08-06] MEDS: HALOPERIDOL LACTATE 5 MG/ML 1 ML VIAL IM PRN ×2 (09:53→16:41)
--- NOTE | 2020-08-06 09:53 | P.MHFACE ---
Face to Face Restrain/Seclus - Evaluation Patient's Immediate Situation: Endangers self safety, Endangers others' safety, Endangers staff safety, Violent behavior Patient's Reaction to the Intervention: Uncooperative, Belligerent, Aggressive Patient's Medical & Behavioral Condition: Awake, Alert, Agitated Need to Continue or Terminate Restraint or Seclusion: Continue
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
[2020-08-06] MEDS: PALIPERIDONE 3 MG TAB.ER.24 PO SCH ×2 (11:24→21:19)
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
[2020-08-07] MEDS: PALIPERIDONE 3 MG TAB.ER.24 PO SCH ×2 (08:57→21:43)
[2020-08-07] MEDS: HALOPERIDOL LACTATE 5 MG/ML 1 ML VIAL IM PRN ×2 (09:24→13:29)
[2020-08-07] MEDS: diphenhydrAMINE 50 MG/ML 1 ML VIAL IM PRN ×2 (09:24→13:28)
[2020-08-07] MEDS: LORazepam 2 MG/ML INJ IM PRN ×2 (09:24→13:29)
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
--- NOTE | 2020-08-07 10:21 | XR ---
EXAMINATION TYPE: XR hand limited LT DATE OF EXAM: 08/07/2020 COMPARISON: NONE HISTORY: pain TECHNIQUE: Two views are submitted. FINDINGS: Osseous structures intact. Joint spaces preserved. No acute fracture or dislocation. IMPRESSION: 1. No acute fracture or dislocation. If symptoms persist follow-up exam in 7-10 days recommended.
[2020-08-07] MEDS: DIVALPROEX ER 500 MG TAB.ER.24H PO SCH (21:43)
[2020-08-08] MEDS: PALIPERIDONE 3 MG TAB.ER.24 PO SCH ×2 (08:28→21:11)
--- NOTE | 2020-08-08 11:28 | P.PN ---
Progress Note - Text Progress Note Date: 08/08/20 Interval History: Patient was seen in bed with a 2:1 security supervision. Patient continues to refuse any medications and reports that even if he is court ordered he will refuse the medications and will fight for it. He is not endorsing any suicidal or homicidal ideations or intentions. He denies any auditory or visual hallucinations. Despite constant redirection and reasoning, the patient is unable to comprehend the reasons for his admission and why he cannot be discharged. Mental Status Exam: General Appearance: Patient appears to be stated age is alert, directable, but uncooperative. Behavior: Patient is agitated, elevated psychomotor activity, and no eye contact. Speech: Patient's speech is fluent and nonpressured. High in volume. Mood/Affect: Mood is angry. Affect is intense and mood congruent. Suicidality/Homicidality: Patient denies having any suicidal or homicidal i deation intent or plan. Perceptions: Patient denies any visual hallucinations and denies any auditory hallucinations Though content/process: Strong fixation on discharge and escape despite redirection. Memory and concentration: AOX3, grossly intact for the purposes of this session Judgment and insight: Very Poor Assessment Schizophrenia Plan: -Agree with Internal Medicine recommendations. -Patient continues to meet criteria for inpatient psychiatric admission for symptom stabilization and safety. We are currently awaiting court. scheduled for 08/09/2020. -Medications: Patient has had numerous trials with Abiliettay and is currently refusing the medication. Patient has been refusing Invega 3 mg by mouth twice a day. I will start depakote ER 500 mg at bedtime for impulsivity and agitation. -When necessary Ativan and Haldol/Benadryl for agitation/aggression. -SW on board for discharge planning. Encouraged the patient to participate in milieu.
[2020-08-08] MEDS: DIVALPROEX ER 500 MG TAB.ER.24H PO SCH (21:11)
[2020-08-09] MEDS: PALIPERIDONE 3 MG TAB.ER.24 PO SCH ×2 (08:04→18:41)
[2020-08-09] MEDS: diphenhydrAMINE 50 MG/ML 1 ML VIAL IM PRN ×2 (10:07→18:57)
[2020-08-09] MEDS: LORazepam 2 MG/ML INJ IM PRN (10:07)
[2020-08-09] MEDS: HALOPERIDOL LACTATE 5 MG/ML 1 ML VIAL IM PRN (10:07)
--- NOTE | 2020-08-09 10:16 | P.PN ---
Progress Note - Text Progress Note Date: 08/09/20 Interval History: Patient was seen attending group and was directable and agreeable to speak with casualty underwriter in the office. Patient is upset with this provider stating that he felt like he is misrepresented during the court. Patient states that he was walking around his underwear and he was not naked. At this time patient denies any suicidal or homical ideations, intent or plan. He does continue to express a strong desire for discharge and made a threat that he would leave here. He continues to refuse medications. This provider tried discussing the option for oral medications, the patient states that he will continue to refuse. Mental Status Exam: General Appearance: Patient appears to be stated age, is alert, directable, but uncooperative. Behavior: Patient is calmly seated without any agitated behavior. Speech: Patient's speech is fluent and nonpressured. Mood/Affect: Mood is irritable, affect is angry Suicidality/Homicidality: Patient denies having any suicidal or homicidal ideation intent or plan. Perceptions: Patient denies any visual hallucinations and denies any auditory hallucinations Though content/process: Strong fixation on discharge and refusal of medications. Memory and concentration: AOX3, grossly intact for the purposes of this session Judgment and insight: Very poor Assessment Schizophrenia Plan: -Patient continues to meet criteria for inpatient psychiatric admission for symptom stabilization and safety. Patient has been court ordered for medications on 08/09/2020. -Medications: We will start Invega 3 mg by mouth twice a day for mood stabilization/psychosis. Should patient refusing Invega, due to court order, we will use Zyprexa 2.5 mg IM initially. We'll gradually titrate if necessary. Continue Depakote ER 500 mg by mouth at bedtime for mood stabilization/impulsivity. -When necessary Ativan and Haldol/Benadryl for agitation/aggression. -SW on board for discharge planning. Encouraged the patient to participate in milieu.
[2020-08-09] MEDS: DIVALPROEX ER 500 MG TAB.ER.24H PO SCH (18:41)
[2020-08-09] MEDS ORDERED: WATER FOR INJECTION, STERILE 10 ML IV ONE (18:49)
[2020-08-09] MEDS: OLANZapine 10 MG VIAL IM PRN (18:51)
[2020-08-10] MEDS: PALIPERIDONE 3 MG TAB.ER.24 PO SCH ×2 (10:46→18:39)
[2020-08-10] MEDS: OLANZapine 10 MG VIAL IM PRN ×2 (10:48→18:43)
[2020-08-10] MEDS: diphenhydrAMINE 50 MG/ML 1 ML VIAL IM PRN ×2 (10:48→18:43)
--- NOTE | 2020-08-10 17:05 | PN ---
PROGRESS NOTE DATE OF SERVICE: 08/10/2020 CHIEF COMPLAINT: The patient had disorganized behavior including running around outdoors, screaming at the top of his lungs. He was admitted on petition completed by his father. INTERVAL HISTORY: The patient had significant difficulties yesterday. He was in an agitated state earlier in the day yesterday. He was making threats towards security staff and others. He did receive p.r.n. medications. He continued on 2-to-1 observation. He was refusing oral medications though accepted IM medications. At 1930 he received IM medications for agitation. It is noted in the evening his father had called stating that the patient called father and said he would never talk to him again. Father was concerned that he might be making an effort to harm himself. He slept 6 hours last night. Today he has been up, mostly he has been in his room. He continues with 2-to-1 observation. He was in his room when I saw him, he was lying down, but awake. He did not report any problems or concerns. He just asked why Abilify was stopped. Otherwise, he did not offer much information at all. He denied any problems with his medications. MENTAL STATUS: Patient was lying down. He gave fair eye contact. He was wide awake. He answered questions with 1 or 2 word responses. He did not provide much information. He avoided responding to some of the questions. His affect was flat. His mood reserved. It was difficult to assess his degree of distress. He did not appear to be restless or in a distressed state. There was no outward evidence of thought disorder. He voiced no thoughts of harm. He was oriented to circumstances and surroundings. ASSESSMENT: I will continue the current diagnosis and treatment plan. We will continue to make efforts to engage the patient in individual and group therapeutic activities. I will continue psychotropic medications the same namely Depakote 500 mg at bedtime and Invega 3 mg twice a day. I will order a valproic acid level for Wednesday. Anticipate the level to be low, given the relatively low dose that he is on. We will continue with 2-to-1 observation with security staff. We will focus on stabilization and discharge planning. MMODL / JEMN: [id number] /
[2020-08-10] MEDS: DIVALPROEX ER 500 MG TAB.ER.24H PO SCH (18:39)
[2020-08-11] MEDS: PALIPERIDONE 3 MG TAB.ER.24 PO SCH ×3 (09:27→21:02)
[2020-08-11] MEDS ORDERED: WATER FOR INJECTION, STERILE 10 ML IV ONE ×2 (09:29→21:05)
[2020-08-11] MEDS: OLANZapine 10 MG VIAL IM PRN ×3 (09:41→21:09)
--- NOTE | 2020-08-11 14:09 | PN ---
PROGRESS NOTE DATE OF SERVICE: 08/11/2020 CHIEF COMPLAINT: The patient had disorganized behavior including running around outdoors, screaming at the top of his lungs. He was admitted on petition completed by his father. INTERVAL HISTORY: The patient continues the same. He had a quiet day yesterday. He continued on two-to- one observations. Mostly he was in his room. He comes out for meals. He occasionally comes out to the desk to ask for one thing or another. He generally has been quiet. He has not had significant behavioral issues. He slept six hours last night. Today he has been up. There is no change in his status. He continues to decline oral medications and then receives IM medicines as the backup. He will accept the IM medications without any resistance. He has not had significant behavioral issues. He has maintained a quiet mood overall. When I talked to him, he was really quite limited in anything he had to say. He reported no problems. He appears to tolerate his psychotropic medications. MENTAL STATUS: Patient was in his room, sitting on the side of the bed. He gave fair eye contact. He answered a few questions with 1 or 2 word responses. He did not say much. His affect was blunted. He had a quiet manner. His mood was reserved. He did not appear to be distressed. It was difficult to assess for thought disorder or thoughts of harm. ASSESSMENT: I will continue the current diagnosis and general treatment plan. I will increase Invega to 3 mg three times a day. I also will increase the backup medication if he declines oral, namely Zyprexa. I will increase his dose to 10 mg t.i.d. IM for his declining oral medications. I would look to potentially increase Invega further or add p.o. Haldol as well if he were to accept oral medications. Overall, the patient has had only minimal antipsychotic exposure and clearly continues to show significant psychotic symptoms with high risk behavior which has quieted in the last couple days. It is noted the patient stated he would accept Haldol Deconoate as an alternative. He stated he would take it on the unit so that he does not have to receive continued IM doses of Zyprexa. On the other hand he stated he would not take continue it on an outpatient basis. It might be reasonable to consider Haldol Decanoate 200mg IM. I have discussed these issues with Dr. Carrillo at [facility] ane he strongly encourages assertive doses of these medications, and indicated a dose of 200mg would be appropriate. In fact he stated with persons with serious psychosis he has been utilizing Haldol Dec 200mg Q2 weeks. Given the severity of his condition and the very high risk he demonstrates in his behavior, it would be quite appropriate to attempt use of assertive dosing of antipsychotics. I also discussed with the patient consideration of Clozapine therapy. We will continue to focus on stabilization and discharge planning. KRAIG / MICHAEL: [id number] / MTDD
[2020-08-11] MEDS: DIVALPROEX ER 500 MG TAB.ER.24H PO SCH (21:02)
[2020-08-11] MEDS: diphenhydrAMINE 50 MG/ML 1 ML VIAL IM PRN (21:10)
[2020-08-12] MEDS ORDERED: WATER FOR INJECTION, STERILE 10 ML IV ONE (09:41)
[2020-08-12] MEDS: OLANZapine 10 MG VIAL IM PRN ×4 (09:42→22:48)
[2020-08-12] MEDS: PALIPERIDONE 3 MG TAB.ER.24 PO SCH ×3 (09:42→23:16)
[2020-08-12] MEDS: diphenhydrAMINE 50 MG/ML 1 ML VIAL IM PRN (09:48)
--- NOTE | 2020-08-12 10:17 | P.PN ---
Progress Note - Text Progress Note Date: 08/12/20 Interval History: Patient was seen wandering the hallways and was directable and agreeable to speak with fha underwriter in the office. Company by one security guard supervisor. Patient continues to be very fixated on discharge. Despite his fixation on discharge, the patient refuses any medications. He states that he will only take the medications by injection. He states that after he takes his medications he feels like killing people. He reports that he feels like killing people because he feels like he is being hurt when the medication is forced upon him. This provider tried reasoning with the patient informing him that the oral medication is always an option, but the patient continues to refuse. He is not endorsing any suicidal ideation, intention, and/or plan. He is reporting no auditory or visual hallucinations. He continues to refuse oral medications and has been receiving Zyprexa 10 mg IM instead. Mental Status Exam: General Appearance: Patient appears to be stated age, is alert, directable, but uncooperative. Behavior: Patient is calmly seated without any agitated behavior. Speech: Patient's speech is fluent and nonpressured. Mood/Affect: Mood is irritable, affect is angry Suicidality/Homicidality: Patient denies having any suicidal or homicidal ideation intent or plan. Perceptions: Patient denies any visual hallucinations and denies any auditory hallucinations Though content/process: Strong fixation on discharge and refusal of medications. Memory and concentration: AOX3, grossly intact for the purposes of this session Judgment and insight: Very poor Assessment Schizophrenia Plan: -Patient continues to meet criteria for inpatient psychiatric admission for symptom stabilization and safety. Patient has been court ordered for medications on 08/09/2020. -Medications: We will start Invega 3 mg by mouth three times a day for mood stabiliza tion/psychosis. Should patient refusing Invega, due to court order, we will use Zyprexa 10 mg IM. Continue Depakote ER 500 mg by mouth at bedtime for mood stabilization/impulsivity. -When necessary Ativan and Haldol/Benadryl for agitation/aggression. -SW on board for discharge planning. Encouraged the patient to participate in milieu.
[2020-08-12] MEDS: DIVALPROEX ER 500 MG TAB.ER.24H PO SCH (22:42)
--- NOTE | 2020-08-13 09:46 | P.PN ---
Progress Note - Text Progress Note Date: 08/13/20 Interval History: Patient was seen wandering the hallways and was directable and agreeable to speak with content writer in the office. Patient is currently accompanied by one security project manager. Patient continues to request discharge. He continues to be informed that he will not be discharged until he is adherent with his oral medications. Patient continues to refuse any oral medications and expresses his disdain with receiving IM medications. He does open up today stating that he refuses oral medications because he does not like feeling tired or sedated while on the medication. He reports that his interests include playing video games such as [employer] and other shooter-type video games. Despite informing him that he will require to take oral medications in order to facilitate discharge, the patient continues to refuse to do so. Patient reports that he does not believe he is schizophrenic. He reports that he only believes that he is ADHD and that he did not require any medications for that so he does not require any medications for what is going on currently. Mental Status Exam: General Appearance: Patient appears to be stated age, is alert, directable, but uncooperative. Behavior: Patient is calmly seated without any agitated behavior. Speech: Patient's speech is fluent and nonpressured. Mood/Affect: Mood is irritable, affect is angry Suicidality/Homicidality: Patient denies having any suicidal or homicidal ideation intent or plan. Perceptions: Patient denies any visual hallucinations and denies any auditory hallucinations Though content/process: Strong fixation on discharge and refusal of medications. Memory and concentration: AOX3, grossly intact for the purposes of this session Judgment and insight: Very poor Assessment Schizophrenia Plan: -Patient continues to meet criteria for inpatient psychiatric admission for symptom stabilization and safety. Patient has been court ordered for medications on 08/09/2020. -Medications: Continue Invega 3 mg by mouth three times a day for mood stabilization/psychosis, plan is to transition patient to long-acting injectable invega sustenna. Should patient refusing Invega, due to court order, we will use Zyprexa 10 mg IM. Continue Depakote ER 500 mg by mouth at bedtime for mood stabil ization/impulsivity. If patient continues to refuse oral invega, may consider haldol IM for court- ordered medication with plans to transition to haldol decanoate as long-acting injectable. -When necessary Ativan and Haldol/Benadryl for agitation/aggression. -SW on board for discharge planning. Encouraged the patient to participate in milieu.
[2020-08-13] MEDS: PALIPERIDONE 3 MG TAB.ER.24 PO SCH ×3 (09:59→19:49)
[2020-08-13] MEDS: OLANZapine 10 MG VIAL IM PRN ×3 (10:08→19:54)
[2020-08-13] MEDS: LORazepam 2 MG/ML INJ IM PRN (19:55)
[2020-08-13] MEDS: DIVALPROEX ER 500 MG TAB.ER.24H PO SCH (20:08)
[2020-08-14] MEDS: PALIPERIDONE 3 MG TAB.ER.24 PO SCH ×3 (09:23→22:33)
[2020-08-14] MEDS: OLANZapine 10 MG VIAL IM PRN (09:28)
--- NOTE | 2020-08-14 09:48 | P.PN ---
Progress Note - Text Progress Note Date: 08/14/20 Interval History: Patient was seen standing in bed and was directable and agreeable to speak with principal technical writer privately in his room. Patient is accompanied by one unarmed security guard. Patient continues to report that he feels "terrible." He states that he does not want to take any medications and that he is waiting until he is discharged. He is not endorsing any auditory or visual hallucinations. He is denying any suicidal or homicidal ideations, intentions, and/or plan. He is not endorsing any auditory or visual hallucinations. He reports that the medications make him feel "too tired." He is nonadherent with any oral medications and has been receiving his IM Zyprexa. Mental Status Exam: General Appearance: Patient appears to be stated age, is alert, directable, but uncooperative. Behavior: Patient is calmly resting in bed without any agitated behavior. Speech: Patient's speech is fluent and nonpressured. Mood/Affect: Mood is terrible, affect is calm and constricted. Suicidality/Homicidality: Patient denies having any suicidal or homicidal ideation intent or plan. Perceptions: Patient denies any visual hallucinations and denies any auditory hallucinations Though content/process: Strong fixation on discharge and refusal of medications. Memory and concentration: AOX3, grossly intact for the purposes of this session Judgment and insight: Very poor Assessment Schizophrenia Plan: -Patient continues to meet criteria for inpatient psychiatric admission for symptom stabilization and safety. Patient has been court ordered for medications on 08/09/2020. -Medications: We will change Zyprexa to Haldol with plans to transition the patient to Long-ac ting haldol decanoate. Patient is on court order. If he refuses invega, Haldol will be administered. If he takes invega, we will transition to invega sustenna instead. We will continue to encourage medication compliance. We will hold depakote at this time. -When necessary Ativan and Haldol/Benadryl for agitation/aggression. -SW on board for discharge planning. Encouraged the patient to participate in milieu. []
[2020-08-14] MEDS: HALOPERIDOL LACTATE 5 MG/ML 1 ML VIAL IM PRN ×2 (16:18→22:16)
[2020-08-14] MEDS: DIVALPROEX ER 500 MG TAB.ER.24H PO SCH (21:42)
--- NOTE | 2020-08-14 23:43 | P.PN ---
Progress Note - Text Progress Note Date: 08/14/20 patient seen for complaint of chest pain he was resting comfortably in bed , he claims that he had chest pain left sided for years now. he did not give a straight answer to why he just brought this up now. he claims that pain is sharp 10/10 in severity. again he seems to be resting comfortably in bed lungs, clear to auscultation bilaterally no wheezes, rhonci or rales CVS normal S1, S2 Regular rate and rhythm, no murmurs, no peripheral edema radial artery pulses equal bilaterally vital signs stable plan check EKG check Trops X2 patient declined any pain killers, claimed that he would like to power through the pain
[2020-08-15] MEDS: PALIPERIDONE 3 MG TAB.ER.24 PO SCH ×3 (09:01→20:32)
[2020-08-15] MEDS: HALOPERIDOL LACTATE 5 MG/ML 1 ML VIAL IM PRN ×4 (09:20→21:13)
--- NOTE | 2020-08-15 09:25 | P.PN ---
Progress Note - Text Progress Note Date: 08/15/20 Interval History: Patient was seen wandering the hallways and was directable and agreeable to speak with journalists and other writers in the office. Patient is accompanied by one-to-one security system engineer. Patient expresses that he has had an episode of chest pain that has been "on and off." Internal medicine evaluated the patient in order troponins and EKG. Troponins were negative. EKG revealed normal sinus rhythm with a QTC of 412 ms. At this time, the patient is not endorsing any suicidal or homicidal ideations, intentions, and/or plan. He reports no auditory or visual hallucinations. Denies any paranoia. He continues to refuse any oral medications. He states that he is open to transitioning to a long-acting injectable as he refuses any daily medications. He reveals some future orientation. He states that he is excited to return home so he can eat some [employer]. Mental Status Exam: General Appearance: Patient appears to be stated age is alert, directable, and intermittently cooperative. Behavior: Patient is calmly seated without any agitated behavior. Speech: Patient's speech is fluent and nonpressured. Mood/Affect: Mood is improving mildly, affect is congruent and constricted. Suicidality/Homicidality: Patient denies having any suicidal or homicidal ideation intent or plan. Perceptions: Patient denies any visual hallucinations and denies any auditory hallucinations Though content/process: There is no evidence of any delusional thought content and thought process is linear and goal-directed. Memory and concentration: AOX3, grossly intact for the purposes of this session Judgment and insight: Improving mildly Assessment Schizophrenia Plan: -Patient continues to meet criteria for inpatient psychiatric admission for symptom stabilization and safety. Patient has been court ordered for medications on 08/09/2020. -Medications: Continue Haldol 3 mg IM 3 times a daywith plans to transition the patient to Long-acting haldol decanoate. Patient is on court order. If he refuses invega, Haldol will be administered. If he takes invega, we will transition to invega sustenna instead. We will continue to encourage medication compliance. We will hold depakote at this time. -When necessary Ativan and Haldol/Benadryl for agitation/aggression. -SW on board for discharge planning. Encouraged the patient to participate in milieu
[2020-08-15] MEDS: DIVALPROEX ER 500 MG TAB.ER.24H PO SCH (20:32)
[2020-08-16] MEDS: PALIPERIDONE 3 MG TAB.ER.24 PO SCH ×3 (09:40→22:15)
--- NOTE | 2020-08-16 10:15 | P.PN ---
Progress Note - Text Progress Note Date: 08/16/20 Interval History: Patient was seen in his bedroom and was directable and agreeable to speak with creative services writer in the office. Patient expresses that he just feels tired. He reports that he is not endorsing any suicidal or homicidal ideation, intention, or plan today. When informed that this has been an improvement from his previous thoughts of wanting to hurt people, the patient expresses some remorse stating that he never really wanted to hurt anyone. He is not endorsing any auditory or visual hallucinations. He denies any paranoia. He reports no significant side effects of his medications. He states that he has some mild pain in his left lower extremity just distal to his injection site. Patient reports that today he is agreeable to take oral medications if it'll help him be discharged. He acknowledged that he would be receiving the loading dose of Invega on Wednesday with the second dose to be given on . He denies any chest pain or other side effects today. Mental Status Exam: General Appearance: Patient appears to be stated age is alert, directable, and cooperative. Behavior: Patient is calmly seated without any agitated behavior. Speech: Patient's speech is fluent and nonpressured. Mood/Affect: Mood is improving mildly, affect is congruent and constricted. Suicidality/Homicidality: Patient denies having any suicidal or homicidal ideation intent or plan. Perceptions: Patient denies any visual hallucinations and denies any auditory larose llucinations Though content/process: There is no evidence of any delusional thought content and thought process is linear and goal-directed. Memory and concentration: AOX3, grossly intact for the purposes of this session Judgment and insight: Improving mildly Assessment Schizophrenia Plan: -Patient continues to meet criteria for inpatient psychiatric admission for symptom stabilization and safety. Patient has been court ordered for medications on 08/09/2020. -Medications: Patient is agreeable to take Invega and has taken his oral Invega this morning. We will continue with Invega 3 mg by mouth 3 times a day for mood stabilization/psychosis. We will administer Invega Sustenna 234 mg IM on Wednesday with the second loading dose of 156 mg IM to be administered on . As patient is on court order, if he refuses Invega, the patient will receive Haldol -When necessary Ativan and Haldol/Benadryl for agitation/aggression. -SW on board for discharge planning. Encouraged the patient to participate in milieu.
[2020-08-17] MEDS: PALIPERIDONE 3 MG TAB.ER.24 PO SCH ×3 (08:25→20:10)
--- NOTE | 2020-08-17 09:59 | P.PN ---
Progress Note - Text Progress Note Date: 08/17/20 Interval history: Patient was seen laying down in his bed today and was directable and agreeable to speak with rewriter. Patient continues to have a one-to-one security at his side. Patient claims that he is feeling "tired today" other than that he states that his mood is been improving. He denies any anxiety today. He claims that he is getting along with others on the unit and denied any thoughts on harm anybody else. He states that he did not go to group this morning, has a fair appetite. He states he is able to sleep throughout the night. At this time patient denies any suicidal or homicidal ideations intent or plan. Denies any Auditory or visual hallucinations. Patient denies any side effects from the medications and has been compliant with meds. Mental status exam: General Appearance: Patient appears to be tall, well-built, stated age is alert, directable, and attempts to be cooperative. Improving hygiene. Behavior: No agitated behavior. Patient is calm and directable Speech: Patient's speech is fluent and nonpressured. Mood/Affect: Mood is improving mildly, affect is congruent and constricted. Suicidality/Homicidality: Patient denies having any suicidal or homicidal ideation intent or plan. Perceptions: Patient denies any auditory or visual hallucinations. Though content/process: Goal oriented, logical. Memory and concentration: AOX3, grossly intact for the purposes of this session Judgment and insight: Impulsive, improving mildly Assessment/Plan: Continue with current diagnosis. Patient continues to meet criteria for inpatient psychiatric admission for symptom stabilization and safety.Patient will be maintained on current psychotropic medication regimen. Patient will receive his Invega Sustenna loading dose tomorrow and then will commence titration off of his by mouth paliperidone. Monitor for medication compliance and for any psychotropic medication side effects. Will continue to monitor ongoing response to treatment. Encouraged participation in milieu.
[2020-08-18] MEDS ORDERED: PALIPERIDONE IM 234 MG/1.5 ML SYG IM ONE (08:00)
--- NOTE | 2020-08-18 10:58 | P.PN ---
Progress Note - Text Progress Note Date: 08/18/20 Interval history: Patient was seen laying down in his bed this morning and was directable and a greeable to speak with ticket writer. Patient apparently has been showing improvement and cooperation with staff lately. Patient continues to have a one-to-one security at his side. She claims that his energy level is fair today and he was able to sleep throughout the night last night with no complaints. He denies any anxiety today. He claims that he is getting along with others on the unit. Patient asked if his mother can come and visit him during the day today to her schedule. He states that he did not go to group this morning, has a fair appetite. He states he is able to sleep throughout the night. At this time patient denies any suicidal or homicidal ideations intent or plan. Denies any Auditory or visual hallucinations. Patient denies any side effects from the medications and has been compliant with meds. Mental status exam: General Appearance: Patient appears to be tall, well-built, stated age is alert, directable, and attempts to be cooperative. Improving hygiene. Behavior: No agitated behavior. Patient is calm and directable. I'll monitor today. Speech: Patient's speech is fluent and nonpressured. Mood/Affect: Mood is improving mildly, affect is congruent and constricted. Suicidality/Homicidality: Patient denies having any suicidal or homicidal ideation intent or plan. Perceptions: Patient denies any auditory or visual hallucinations. Though content/process: Goal oriented, logical. Memory and concentration: AOX3, grossly intact for the purposes of this session Judgment and insight: Poor/ Impulsive, improving mildly Assessment/Plan: Continue with current diagnosis. Patient continues to meet criteria for inpatient psychiatric admission for symptom stabilization and safety.Patient will be maintained on current psychotropic medication regimen. Patient received his Invega Sustenna loading today and will decrease paliperidone by mouth to 3 mg twice a day and continue to titrate off in the next few days. Monitor for medication compliance and for any psychotropic medication side effects. Will continue to monitor ongoing response to treatment. Encouraged participation in milieu. Spiritual Counselor spoke with security and also with nursing staff about patient being discontinued off of one-to-one security and observe closely for now and they are okay with this plan.
[2020-08-18] MEDS: PALIPERIDONE 3 MG TAB.ER.24 PO SCH ×2 (12:22→19:38)
--- NOTE | 2020-08-19 09:04 | P.PN ---
Progress Note - Text Progress Note Date: 08/19/20 Interval History: Patient was seen wandering the hallways and was directable and agreeable to speak with residential mortgage underwriter in the office. Patient reports that he feels "tired." He otherwise has been tolerating his medications well. He is not endorsing any suicidal or homicidal ideation, intention, and/or plan today. He reports no auditory or visual hallucinations. He does express some concern over "2 bumps" by his groin. Examination from this physician reveals nonpurulent bumps in his pubic area which are likely ingrown hairs. Patient is in agreement and the plan to received Invega Sustenna second loading dose on . Patient is now off one-to-one. He reports the weekend went well. Denies any issues with staff or peers. Mental Status Exam: General Appearance: Patient appears to be stated age is alert, directable, and cooperative. Behavior: Patient is calmly seated without any agitated behavior. Speech: Patient's speech is fluent and nonpressured. Mood/Affect: Mood is improving mildly, affect is congruent and constricted. Suicidality/Homicidality: Patient denies having any suicidal or homicidal ideation intent or plan. Perceptions: Patient denies any visual hallucinations and denies any auditory hallucinations Though content/process: There is no evidence of any delusional thought content and thought process is linear and goal-directed. Memory and concentration: AOX3, grossly intact for the purposes of this session Judgment and insight: Improving mildly Assessment Schizophrenia -Patient continues to meet criteria for inpatient psychiatric admission for symptom stabilization and safety. Patient has been court ordered for medications on 08/09/2020. -Medications: We will decrease his Invega to 3 mg by mouth at bedtime for mood stabilization/psychosis. Patient received Invega Sustenna 234 mg IM on 08/18/2020. He will receive Invega Sustenna 156 mg IM on . As patient is on court order, if he refuses Invega, the patient will receive Haldol -When necessary Ativan and Haldol/Benadryl for agitation/aggression. -SW on board for discharge planning. Encouraged the patient to participate in milieu.
[2020-08-19 09:25] VITALS: RESP 16
[2020-08-19] MEDS ORDERED: PALIPERIDONE 3 MG TAB.ER.24 PO SCH (21:00)
[2020-08-19] MEDS: PALIPERIDONE 3 MG TAB.ER.24 PO SCH (21:46)
[2020-08-20 06:53] VITALS: TEMP 98
--- NOTE | 2020-08-20 10:25 | P.PN ---
Progress Note - Text Progress Note Date: 08/20/20 Interval History: Patient was seen resting in bed and was directable and agreeable to speak with engineering writer. Patient is adherent with his medications not reporting any significant side effects aside from feeling tired. He is currently not reporting any suicidal or homicidal ideation, intention, and/or plan. He reports no auditory or visual hallucinations. He denies any paranoia. He reports a mild headache but is otherwise not endorsing any significant medical problems. He is requesting if his mother can visit outside of normal visiting hours today from 2 to 3 PM. Mental Status Exam: General Appearance: Patient appears to be stated age is alert, directable, and cooperative. Behavior: Patient is calmly seated without any agitated behavior. Speech: Patient's speech is fluent and nonpressured. Mood/Affect: Mood is improving mildly, affect is congruent and constricted. Suicidality/Homicidality: Patient denies having any suicidal or homicidal ideation intent or plan. Perceptions: Patient denies any visual hallucinations and denies any auditory hallucinations Though content/process: There is no evidence of any delusional thought content and thought process is linear and goal-directed. Memory and concentration: AOX3, grossly intact for the purposes of this session Judgment and insight: Improving mildly Assessment Schizophrenia Plan: -Patient continues to meet criteria for inpatient psychiatric admission for symptom stabilization and safety. Patient has been court ordered for medications on 08/09/2020. -Medications: Continue Invega 3 mg by mouth at bedtime for mood stabilization/psychosis. Patient received Invega Sustenna 234 mg IM on 08/18/2020. He will receive Invega Sustenna 156 mg IM on . As patient is on court order, if he refuses Invega, the patient will receive Haldol -When necessary Ativan and Haldol/Benadryl for agitation/aggression. -SW on board for discharge planning. Encouraged the patient to participate in milieu.
[2020-08-20] MEDS: PALIPERIDONE 3 MG TAB.ER.24 PO SCH (21:15)
--- NOTE | 2020-08-21 10:09 | P.PN ---
Progress Note - Text Progress Note Date: 08/21/20 Interval History: Patient was seen [wandering the hallways] and was directable and agreeable to speak with customs entry writer in the office. The ports that he is feeling well. He is not endorsing any significant side effects of his medications. He continues to report feeling tired. He is not endorsing any auditory or visual hallucinations. He denies any paranoia or other delusions. He is currently not reporting any suicidal or homicidal ideation, intention, and/or plan. He rep orts that upon discharge, he plans to play video games. He reports occasional chest pain but denies any shortness of breath or palpitations. During this inpatient admission, EKG and troponin were drawn and were found to be unremarkable. Mental Status Exam: General Appearance: Patient appears to be stated age is alert, directable, and cooperative. Behavior: Patient is calmly seated without any agitated behavior. Speech: Patient's speech is fluent and nonpressured. Mood/Affect: Mood is improving mildly, affect is congruent and constricted. Suicidality/Homicidality: Patient denies having any suicidal or homicidal ideation intent or plan. Perceptions: Patient denies any visual hallucinations and denies any auditory hallucinations Though content/process: There is no evidence of any delusional thought content and thought process is linear and goal-directed. Memory and concentration: AOX3, grossly intact for the purposes of this session Judgment and insight: Improving mildly Assessment Schizophrenia Plan: -Patient continues to meet criteria for inpatient psychiatric admission for symptom stabilization and safety. Patient has been court ordered for medications on 08/09/2020. -Medications: Continue Invega 3 mg by mouth at bedtime for mood stabilization/psychosis. Patient received Invega Sustenna 234 mg IM on 08/18/2020. He will receive Invega Sustenna 156 mg IM tomorrow. As patient is on court order, if he refuses Invega, the patient will receive Haldol -When necessary Ativan and Haldol/Benadryl for agitation/aggression. -SW on board for discharge planning. Encouraged the patient to participate in milieu.
[2020-08-21 13:46] VITALS: BMI 24.4
[2020-08-21] MEDS: PALIPERIDONE 3 MG TAB.ER.24 PO SCH (22:33)
[2020-08-22 05:11] VITALS: BP 121/88; PULSE 90
[2020-08-22] MEDS ORDERED: PALIPERIDONE IM 156 MG/ML SYG IM STA (08:59)
[2020-08-22] MEDS ORDERED: PALIPERIDONE IM 156 MG/ML SYG IM ONE (09:00)
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
== END 2020-08-22 15:38 | disposition home or self-care (01) | DRG 885 ==
LOC: EC 12:50 → 3MHU 18:26
PROVIDERS: ADMIT Psychiatry & Neurology Psychiatry; ATTEND Psychiatry & Neurology Psychiatry
DX: F20.9 Schizophrenia, unspecified (principal); S06.0X9A Concussion with loss of consciousness of unspecified duration, initial encounter; R45.851 Suicidal ideations; F90.9 Attention-deficit hyperactivity disorder, unspecified type; J45.909 Unspecified asthma, uncomplicated; Z78.1 Physical restraint status; M79.645 Pain in left finger(s); Z87.891 Personal history of nicotine dependence; T43.96XA Underdosing of unspecified psychotropic drug, initial encounter; Z91.128 Patient's intentional underdosing of medication regimen for other reason; Z79.899 Other long term (current) drug therapy; Z88.7 Allergy status to serum and vaccine
CPT/HCPCS: 70450; 72125; 80164; 80165; 80306; 82075; 84484; 93005; 96372; 99285

== ENCOUNTER 2021-01-22 | Emergency (ER) | payer OTHER ==
--- NOTE | 2021-01-22 03:07 | ED ---
Psych HPI - General Stated Complaint: Mental Health Time Seen by Provider: 01/22/21 03:06 Source: RN notes reviewed, old records reviewed - History of Present Illness Initial Comments: This is a 25-year-old male brought in by his father for suicidal thoughts. Patient has history of mental health and depression. Patient states she does have a plan, symptoms of been increasing for the past month. No significant recent drugs or alcohol abuse. No significant life stressors MD Complaint: suicidal ideation, feels depressed, altered mental status -: month(s) Associated Psychiatric Symptoms: depression, suicidal ideation History of same: Yes Quality: intermittent, getting worse Improves With: none Worsens With: none Context: not taking psychiatric medications, significant life stressor Associated Symptoms: denies other symptoms Treatments Prior to Arrival: none If Self Harm: admits thoughts of self harm - Related Data Previous Rx's Medication Instructions Recorded Paliperidone IM [Invega Sustenna] 156 mg IM QMONTHLY #1 syr 08/22/20 Allergies Allergy/AdvReac Type Severity Reaction Status Date / Time pertussis vaccine,adsorbed Allergy Unknown Verified 01/22/21 03:12 Review of Systems ROS Statement: Those systems with pertinent positive or pertinent negative responses have been documented in the HPI. ROS Other: All systems not noted in ROS Statement are negative. Past Medical History Past Medical History: Asthma History of Any Multi-Drug Resistant Organisms: None Reported Past Surgical History: No Surgical Hx Reported Past Anesthesia/Blood Transfusion Reactions: No Reported Reaction Past Psychological History: No Psychological Hx Reported Smoking Status: Former smoker Past Alcohol Use History: None Reported Past Drug Use History: Marijuana General Exam General appearance: alert, in no apparent distress Head exam: Present: atraumatic, normocephalic, normal inspection Eye exam: Present: normal appearance, PERRL, EOMI. Absent: scleral icterus, conjunctival injection, periorbital swelling ENT exam: Present: normal exam, mucous membranes moist Neck exam: Present: normal inspection. Absent: tenderness, meningismus, lymphadenopathy Respiratory exam: Present: normal lung sounds bilaterally. Absent: respiratory distress, wheezes, rales, rhonchi, stridor Cardiovascular Exam: Present: regular rate, normal rhythm, normal heart sounds. Absent: systolic murmur, diastolic murmur, rubs, gallop, clicks GI/Abdominal exam: Present: soft, normal bowel sounds. Absent: distended, tenderness, guarding, rebound, rigid Extremities exam: Present: normal inspection, full ROM, normal capillary refill. Absent: tenderness, pedal edema, joint swelling, calf tenderness Back exam: Present: normal inspection Neurological exam: Present: alert, oriented X3, CN II-XII intact Psychiatric exam: Present: normal affect, normal mood Skin exam: Present: warm, dry, intact, normal color. Absent: rash Course Vital Signs 01/22/21 01/22/21 03:07 06:30 Temperature 98.4 F Pulse Rate 90 84 Respiratory 20 18 Rate Blood Pressure 140/96 142/95 O2 Sat by Pulse 97 97 Oximetry - Reevaluation(s) Reevaluation #1: Medical record is reviewed Patient medically clear for psychiatric evaluation Medical Decision Making - Medical Decision Making 45 male DF for evaluation of depression. Patient has persistent depression was seen in however psychiatry deemed safe for discharge home Disposition Clinical Impression: Delusions, Psychosis, Depression Disposition: HOME SELF-CARE Condition: Good Instructions (If sedation given, give patient instructions): Depression (ED) Is patient prescribed a controlled substance at d/c from ED?: No Referrals: [facility] [Primary Care Provider] - 1-2 days
== END 2021-01-22 06:32 | disposition home or self-care (01) ==
CPT/HCPCS: 82075; 99284

== ENCOUNTER 2021-06-04 14:03 | Emergency (ER) | payer OTHER ==
[2021-06-04 14:14] VITALS: BP 129/75; PULSE 90; RESP 18; TEMP 98.7
--- NOTE | 2021-06-04 15:07 | XR ---
EXAMINATION TYPE: XR foot complete RT DATE OF EXAM: 06/04/2021 COMPARISON: NONE HISTORY: Pain TECHNIQUE: Three views are submitted. FINDINGS: The osseous structures are intact. There is a transverse fracture through the proximal fifth metat arsal with mild displacement. Soft tissue edema noted. IMPRESSION: 1. Mildly displaced transverse fracture proximal fifth metatarsal
--- NOTE | 2021-06-04 15:15 | ED ---
Extremity Problem HPI - General Chief complaint: Extremity Problem,Nontraumatic Stated complaint: Broke Rt Foot Time Seen by Provider: 06/04/21 14:17 Source: patient, RN notes reviewed Mode of arrival: ambulatory Limitations: no limitations - History of Present Illness Initial comments: 26-year-old male presents emergency Department with chief complaint right foot pain. Patient states she stepped wrong and felt something pop. Patient states he has pain on lateral portion of his foot he denies any other trauma no swelling or ecchymosis noted. - Related Data Previous Rx's Medication Instructions Recorded Paliperidone IM [Invega Sustenna] 156 mg IM QMONTHLY #1 syr 08/22/20 Allergies Allergy/AdvReac Type Severity Reaction Status Date / Time pertussis vaccine,adsorbed Allergy Unknown Verified 06/04/21 14:15 Review of Systems ROS Statement: Those systems with pertinent positive or pertinent negative responses have been documented in the HPI. ROS Other: All systems not noted in ROS Statement are negative. Past Medical History Past Medical History: Asthma History of Any Multi-Drug Resistant Organisms: None Reported Past Surgical History: No Surgical Hx Reported Past Anesthesia/Blood Transfusion Reactions: No Reported Reaction Past Psychological History: No Psychological Hx Reported Smoking Status: Former smoker Past Alcohol Use History: None Reported Past Drug Use History: Marijuana General Exam Limitations: no limitations General appearance: alert, in no apparent distress Head exam: Present: atraumatic, normocephalic, normal inspection Neck exam: Present: normal inspection, full ROM. Absent: tenderness, meningismus, lymphadenopathy Respiratory exam: Present: normal lung sounds bilaterally. Absent: respiratory distress, wheezes, rales, rhonchi, stridor Cardiovascular Exam: Present: regular rate, normal rhythm, normal heart sounds. Absent: systolic murmur, diastolic murmur, rubs, gallop, clicks Extremities exam: Present: other (Right foot there is tenderness of the lateral foot with no ecchymosis no significant swelling neurovascular intact no malleoli tenderness no proximal tib-fib tenderness) Course Vital Signs 06/04/21 14:12 Temperature 98.7 F Pulse Rate 90 Respiratory 18 Rate Blood Pressure 129/75 O2 Sat by Pulse 98 Oximetry Procedures - Orthopedic Splinting/Casting Injury #1 Side: right Lower Extremity Injury Location: short leg, foot Lower Extremity Immobilizer: posterior splint, synthetic pre-padded splint Other Orthopedic Equipment: crutches Medical Decision Making - Medical Decision Making Patient was splinted and will follow-up with orthopedics x-ray shows transverse fracture fifth metatarsal Disposition Clinical Impression: Fracture of fifth metatarsal bone of right foot Disposition: HOME SELF-CARE Condition: Stable Instructions (If sedation given, give patient instructions): Foot Fracture in Adults (ED) Additional Instructions: Please return to the Emergency Department if symptoms worsen or any other concerns. Is patient prescribed a controlled substance at d/c from ED?: No Referrals: [facility] [Primary Care Provider] - 1-2 days John Rushing MD [STAFF PHYSICIAN] - 1-2 days Time of Disposition: 15:15
== END 2021-06-04 15:47 | disposition home or self-care (01) ==
LOC: EC 14:03
DX: S92.351A Displaced fracture of fifth metatarsal bone, right foot, initial encounter for closed fracture (principal); J45.909 Unspecified asthma, uncomplicated; F12.90 Cannabis use, unspecified, uncomplicated; Z88.7 Allergy status to serum and vaccine; Z87.891 Personal history of nicotine dependence; W52.XXXA Crushed, pushed or stepped on by crowd or human stampede, initial encounter
CPT/HCPCS: 29515; 99283

== ENCOUNTER → 2022-05-28 | Outpatient (CLI) | payer OTHER ==
--- NOTE | 2022-05-28 16:11 | XR ---
Soft tissue neck HISTORY: R22.1 LOCALIZED SWELLING, MASS AND LUMP, NECK 2 views of the neck No radiopaque foreign body. Epiglottis shows normal appearance in profile. Degenerative disc changes are noted incidentally in the cervical spine. Prevertebral soft tissues are normal. The airway is pat ent. IMPRESSION: No abnormality evident to account for patient's symptoms.
== END | disposition home or self-care (01) ==
LOC: RADXRMAIN 14:42
PROVIDERS: ATTEND Nurse Practitioner
DX: R22.1 Localized swelling, mass and lump, neck (principal)
CPT/HCPCS: 70360

== ENCOUNTER 2022-07-25 03:41 | Emergency (ER) | payer OTHER ==
[2022-07-25 03:45] VITALS: TEMP 98.1
[2022-07-25] MEDS ORDERED: KETOROLAC 15 MG/ML 1 ML VIAL IM STA (04:00)
[2022-07-25] MEDS ORDERED: PROCHLORPERAZINE 10 MG TAB PO STA (04:00)
[2022-07-25] MEDS ORDERED: diphenhydrAMINE 50 MG CAP PO STA (04:00)
[2022-07-25] MEDS ORDERED: dexAMETHasone 2 MG TAB PO STA (04:00)
--- NOTE | 2022-07-25 04:01 | ED ---
Headache HPI - General Chief Complaint: Headache Stated Complaint: headache Time Seen by Provider: 07/25/22 03:42 Source: RN notes reviewed, old records reviewed Mode of arrival: ambulatory Limitations: no limitations - History of Present Illness Initial Comments: This is a 27-year-old male to the emergency department for evaluation. Patient states he has a migraine headache with history of migraines. No trauma. Mild nausea no acute vomiting no fevers. Patient states headache throbbing in nature to started today. No modifying factors to improve symptoms at home MD Complaint: headache, "migraine" -: hour(s) Onset Description: gradual Location: right, left, temporal Severity: moderate Severity scale (1-10): 6 Quality: aching, throbbing Consistency: constant Improves With: nothing Worsens With: none Context: other (0) Associated Symptoms: nausea, photophobia, sensitivity to sound Other Symptoms: other (0) Treatments Prior to Arrival: none - Related Data Previous Rx's Medication Instructions Recorded Paliperidone IM [Invega Sustenna] 156 mg IM QMONTHLY #1 syr 08/22/20 Ibuprofen [Motrin] 800 mg PO Q6HR #30 tab 06/04/21 Allergies Allergy/AdvReac Type Severity Reaction Status Date / Time pertussis vaccine,adsorbed Allergy Unknown Verified 07/25/22 03:42 Review of Systems ROS Statement: Those systems with pertinent positive or pertinent negative responses have been documented in the HPI. ROS Other: All systems not noted in ROS Statement are negative. Past Medical History Past Medical History: Asthma History of Any Multi-Drug Resistant Organisms: None Reported Past Surgical History: No Surgical Hx Reported Past Anesthesia/Blood Transfusion Reactions: No Reported Reaction Past Psychological History: No Psychological Hx Reported Smoking Status: Former smoker Past Alcohol Use History: None Reported Past Drug Use History: Marijuana General Exam Limitations: no limitations General appearance: alert, in no apparent distress Head exam: Present: atraumatic, normocephalic, normal inspection Eye exam: Present: normal appearance, PERRL, EOMI. Absent: scleral icterus, conjunctival injection, periorbital swelling ENT exam: Present: normal exam, mucous membranes moist Neck exam: Present: normal inspection. Absent: tenderness, meningismus, lymphad enopathy Respiratory exam: Present: normal lung sounds bilaterally. Absent: respiratory distress, wheezes, rales, rhonchi, stridor Cardiovascular Exam: Present: regular rate, normal rhythm, normal heart sounds. Absent: systolic murmur, diastolic murmur, rubs, gallop, clicks GI/Abdominal exam: Present: soft, normal bowel sounds. Absent: distended, tenderness, guarding, rebound, rigid Extremities exam: Present: normal inspection, full ROM, normal capillary refill. Absent: tenderness, pedal edema, joint swelling, calf tenderness Back exam: Present: normal inspection Neurological exam: Present: alert, oriented X3, CN II-XII intact Psychiatric exam: Present: normal affect, normal mood Skin exam: Present: warm, dry, intact, normal color. Absent: rash Course Vital Signs 07/25/22 07/25/22 03:43 05:22 Temperature 98.1 F Pulse Rate 66 55 L Respiratory 16 18 Rate Blood Pressure 128/87 121/78 O2 Sat by Pulse 98 100 Oximetry - Reevaluation(s) Reevaluation #1: 07/25/22 Record is reviewed Patient symptoms are improved here in the ER Patient is informed of results and questions are answered Medical Decision Making - Medical Decision Making 27 male to the emergency department with typical migraine headache. Headache resolved here in the ER he can be discharged home Disposition Clinical Impression: Migraine headache Disposition: HOME SELF-CARE Condition: Good Instructions (If sedation given, give patient instructions): Acute Headache (ED) Is patient prescribed a controlled substance at d/c from ED?: No Referrals: [facility]el [facility] [Primary Care Provider] - 1-2 days Time of Disposition: 05:05
[2022-07-25] MEDS ORDERED: ETODOLAC 400 MG TAB PO ONE (05:00)
[2022-07-25 05:23] VITALS: BP 121/78; PULSE 55; RESP 18
== END 2022-07-25 05:42 | disposition home or self-care (01) ==
LOC: EC 03:41
DX: G43.909 Migraine, unspecified, not intractable, without status migrainosus (principal); J45.909 Unspecified asthma, uncomplicated; Z87.891 Personal history of nicotine dependence; Z88.7 Allergy status to serum and vaccine
CPT/HCPCS: 99283; S0183; J8540

== ENCOUNTER 2022-08-11 22:59 | Emergency (ER) | payer OTHER ==
[2022-08-11 23:07] VITALS: TEMP 99
--- NOTE | 2022-08-12 01:29 | ED ---
Psych HPI - General Source: patient, family, EMS, RN notes reviewed Mode of arrival: EMS <Lexy Son - Last Filed: 08/12/22 04:08> <Jaya Griffith - Last Filed: 08/12/22 06:21> <Alex Reed - Last Filed: 08/12/22 13:17> - General Chief Complaint: Headache Stated Complaint: Headache - History of Present Illness Initial Comments: Patient is a 27-year-old male presents the emergency room with complaints of a headache ongoing for 2 days. Upon arrival to his room in the emergency room his headache had resolved however there is concerns regarding worsening of psychiatric symptoms which includes hallucinations of demons that he has to protect his child from. He has a young child at home along with the child's mother who he reports is his ex-girlfriend. His father is with him and states that he has been off of his medication for approximately 10 months and his psychiatric symptoms have progressively gotten worse. He has previously been on "order for medications. He denies any auditory hallucinations, suicidal thoughts or homicidal thoughts. He admits to high stress levels that eventually cause headaches and his hallucinations similar to the episode he had last night. He has a past medical history significant for asthma. His psychiatric history includes schizophrenia and anxiety. As stated above he is not currently taking any psychiatric medications. (Lexy Son) - Related Data Home Medications Medication Instructions Recorded Confirmed No Known Home Medications 08/12/22 08/12/22 Allergies Allergy/AdvReac Type Severity Reaction Status Date / Time pertussis vaccine,adsorbed Allergy Unknown Verified 08/12/22 11:16 Review of Systems ROS Other: All systems not noted in ROS Statement are negative. <Lexy Son - Last Filed: 08/12/22 04:08> ROS Other: All systems not noted in ROS Statement are negative. <Jaya Griffith - Last Filed: 08/12/22 06:21> ROS Other: All systems not noted in ROS Statement are negative. <Alex Reed - Last Filed: 08/12/22 13:17> ROS Statement: Those systems with pertinent positive or pertinent negative responses have been documented in the HPI. Past Medical History Past Medical History: Asthma History of Any Multi-Drug Resistant Organisms: None Reported Past Surgical History: No Surgical Hx Reported Past Anesthesia/Blood Transfusion Reactions: No Reported Reaction Past Psychological History: Schizophrenia Smoking Status: Current every day smoker Past Alcohol Use History: None Reported Past Drug Use History: Marijuana <Lexy Son - Last Filed: 08/12/22 04:08> General Exam General appearance: alert, in no apparent distress Head exam: Present: atraumatic, normocephalic, normal inspection Eye exam: Present: normal appearance, PERRL, EOMI. Absent: scleral icterus, conjunctival injection, periorbital swelling ENT exam: Present: normal exam, mucous membranes moist Neck exam: Present: normal inspection Respiratory exam: Absent: respiratory distress, accessory muscle use Cardiovascular Exam: Present: regular rate GI/Abdominal exam: Absent: distended Extremities exam: Present: normal inspection. Absent: pedal edema, joint swelling Back exam: Present: normal inspection Neurological exam: Present: alert, oriented X3, CN II-XII intact Psychiatric exam: Present: flat affect Skin exam: Present: warm, dry, intact, normal color. Absent: rash <Lexy Son - Last Filed: 08/12/22 04:08> Course <Alex Reed - Last Filed: 08/12/22 13:17> Vital Signs 08/11/22 08/12/22 23:04 06:27 Temperature 99 F Pulse Rate 106 H 75 Respiratory 18 16 Rate Blood Pressure 148/92 105/76 O2 Sat by Pulse 97 98 Oximetry - Reevaluation(s) Reevaluation #1: 08/12/22 13:16 Patient was endorsed me in the morning shift pending transfer the patient will be transferred to health [facility] for inpatient evaluation and treatment (Alex Reed) Procedures - Restraint - Face to Face Restraint Occurrence 1 Patient's Immediate Situation: Endangers self safety, Endangers others' safety, Endangers staff safety, Violent behavior Patient's Reaction to the Intervention: Calm, Cooperative Patient's Medical & Behavioral Condition: Awake, Alert, Follows directions Need to Continue or Terminate Restraint or Seclusion: Continue Face to Face Eval of Restraint Date: 08/12/22 Face to Face Eval of Restraint Time: 05:17 <Jaya Griffith - Last Filed: 08/12/22 06:21> Medical Decision Making <Lexy Son - Last Filed: 08/12/22 04:08> <Jaya Griffith - Last Filed: 08/12/22 06:21> - Lab Data Result diagrams: 08/12/22 06:14 08/12/22 06:14 <Alex Reed - Last Filed: 08/12/22 13:17> - Medical Decision Making 27-year-old male presenting to the emergency room with complaints of headache which is resolved upon evaluation. No indication for diagnostic imaging, laboratory studies or medications. Due to hallucinations of demons will consult psych for an evaluation. Medically cleared for EPS evaluation. (Lexy Son) I was notified by staff that the patient is being aggressive, and does have a history of attacking medical staff.. Patient's father is at bedside. He did talk the patient into complying and cooperating with placed in soft restraints. He will be given Geodon. Patient was in agreement this plan. See restraint note for further details. EPS requested labs be obtained. These were ordered. Patient's father completed a petition.Clinical certificate was completed by myself. I was notified by EPS at the patient will be transferred to a different psychiatric facility, but he does require admission. (Jaya Griffith) - Lab Data Lab Results 08/12/22 08/12/22 08/12/22 Range/Units 02:15 06:14 06:14 WBC 8.2 (3.8-10.6) k/uL RBC 5.36 (4.30-5.90) m/uL Hgb 15.5 (13.0-17.5) gm/dL Hct 45.4 (39.0-53.0) % MCV 84.7 (80.0-100.0) fL MCH 28.9 (25.0-35.0) pg MCHC 34.1 (31.0-37.0) g/dL RDW 12.6 (11.5-15.5) % Plt Count 203 (150-450) k/uL MPV 7.9 Neutrophils % 77 % Lymphocytes % 13 % Monocytes % 7 % Eosinophils % 1 % Basophils % 0 % Neutrophils # 6.3 (1.3-7.7) k/uL Lymphocytes # 1.0 (1.0-4.8) k/uL Monocytes # 0.6 (0-1.0) k/uL Eosinophils # 0.1 (0-0.7) k/uL Basophils # 0.0 (0-0.2) k/uL Sodium 139 (137-145) mmol/L Potassium 3.5 (3.5-5.1) mmol/L Chloride 106 (98-107) mmol/L Carbon Dioxide 23 (22-30) mmol/L Anion Gap 10 mmol/L BUN 16 (9-20) mg/dL Creatinine 1.01 (0.66-1.25) mg/dL Est GFR (CKD-EPI)AfAm >90 (>60 ml/min/1.73 sqM) Est GFR (CKD-EPI)NonAf >90 (>60 ml/min/1.73 sqM) Glucose 120 H (74-99) mg/dL Calcium 8.5 (8.4-10.2) mg/dL Urine Opiates Screen Not Detected (NotDetected) Ur Oxycodone Screen Not Detected (NotDetected) Urine Methadone Screen Not Detected (NotDetected) Ur Propoxyphene Screen Not Detected (NotDetected) Ur Barbiturates Screen Not Detected (NotDetected) U Tricyclic Antidepress Not Detected (NotDetected) Ur Phencyclidine Scrn Not Detected (NotDetected) Ur Amphetamines Screen Not Detected (NotDetected) U Methamphetamines Scrn Not Detected (NotDetected) U Benzodiazepines Scrn Not Detected (NotDetected) Urine Cocaine Screen Not Detected (NotDetected) U Marijuana (THC) Screen Not Detected (NotDetected) Coronavirus (PCR) (Not Detectd) 08/12/22 Range/Units 06:14 WBC (3.8-10.6) k/uL RBC (4.30-5.90) m/uL Hgb (13.0-17.5) gm/dL Hct (39.0-53.0) % MCV (80.0-100.0) fL MCH (25.0-35.0) pg MCHC (31.0-37.0) g/dL RDW (11.5-15.5) % Plt Count (150-450) k/uL MPV Neutrophils % % Lymphocytes % % Monocytes % % Eosinophils % % Basophils % % Neutrophils # (1.3-7.7) k/uL Lymphocytes # (1.0-4.8) k/uL Monocytes # (0-1.0) k/uL Eosinophils # (0-0.7) k/uL Basophils # (0-0.2) k/uL Sodium (137-145) mmol/L Potassium (3.5-5.1) mmol/L Chloride (98-107) mmol/L Carbon Dioxide (22-30) mmol/L Anion Gap mmol/L BUN (9-20) mg/dL Creatinine (0.66-1.25) mg/dL Est GFR (CKD-EPI)AfAm (>60 ml/min/1.73 sqM) Est GFR (CKD-EPI)NonAf (>60 ml/min/1.73 sqM) Glucose (74-99) mg/dL Calcium (8.4-10.2) mg/dL Urine Opiates Screen (NotDetected) Ur Oxycodone Screen (NotDetected) Urine Methadone Screen (NotDetected) Ur Propoxyphene Screen (NotDetected) Ur Barbiturates Screen (NotDetected) U Tricyclic Antidepress (NotDetected) Ur Phencyclidine Scrn (NotDetected) Ur Amphetamines Screen (NotDetected) U Methamphetamines Scrn (NotDetected) U Benzodiazepines Scrn (NotDetected) Urine Cocaine Screen (NotDetected) U Marijuana (THC) Screen (NotDetected) Coronavirus (PCR) Not Detected (Not Detectd) Disposition Is patient prescribed a controlled substance at d/c from ED?: No <Lexy Son - Last Filed: 08/12/22 04:08> <Jaya Griffith - Last Filed: 08/12/22 06:21> Is patient prescribed a controlled substance at d/c from ED?: No Decision Date: 08/12/22 Decision Time: 13:17 <Alex Reed - Last Filed: 08/12/22 13:17> Clinical Impression: Schizophrenia, Acute psychosis, Aggression Disposition: TRANSFER TO PSYCH HOSP/UNIT Condition: Stable Referrals: Catalina Hazel, ANUSHKA [Primary Care Provider] - 1-2 days
[2022-08-12 02:35] LABS: Amphetamine Screen,Urine Not Detected (NotDetected); Barbiturate Screen,Urine Not Detected (NotDetected); Benzodiazepines Screen,Urine Not Detected (NotDetected); Cocaine Screen,Urine Not Detected (NotDetected); Methadone Screen, Urine Not Detected (NotDetected); Opiate Screen,Urine Not Detected (NotDetected); Oxycodone Screen, Urine Not Detected (NotDetected); Phencyclidine Screen,Urine Not Detected (NotDetected); Tricyclic Antidepressant,Urine Not Detected (NotDetected); Urn Cannabinoid Scrn Not Detected (NotDetected)
[2022-08-12] MEDS ORDERED: ZIPRASIDONE 20 MG VIAL IM STA (05:23)
[2022-08-12 06:26] LABS: Basophils % (A) 0 %; Eosinophils # (A) 0.1 k/uL (0-0.7); Eosinophils % (A) 1 %; HCT 45.4 % (39.0-53.0); HGB 15.5 gm/dL (13.0-17.5); Lymphocytes % (A) 13 %; MCH 28.9 pg (25.0-35.0); MCHC 34.1 g/dL (31.0-37.0); MCV 84.7 fL (80.0-100.0); Mean Platelet Volume 7.9; Monocytes # (A) 0.6 k/uL (0-1.0); Monocytes % (A) 7 %; Neutrophils # (A) 6.3 k/uL (1.3-7.7); Neutrophils % (A) 77 %; Platelet Count 203 k/uL (150-450); RBC 5.36 m/uL (4.30-5.90); RDW 12.6 % (11.5-15.5); WBC 8.2 k/uL (3.8-10.6)
[2022-08-12 06:27] VITALS: BP 105/76; PULSE 75; RESP 16
[2022-08-12 06:38] LABS: African American GFR (CKD) >90 (>60 ml/min/1.73 sqM); Anion Gap 10 mmol/L; Blood Urea Nitrogen 16 mg/dL (9-20); Calcium 8.5 mg/dL (8.4-10.2); Carbon Dioxide 23 mmol/L (22-30); Chloride 106 mmol/L (98-107); Glucose 120 mg/dL (74-99); Non-African American GFR(CKD) >90 (>60 ml/min/1.73 sqM); Potassium 3.5 mmol/L (3.5-5.1); Sodium 139 mmol/L (137-145)
== END 2022-08-12 14:15 ==
LOC: EC 22:59
DX: F20.9 Schizophrenia, unspecified (principal); R45.6 Violent behavior; J45.909 Unspecified asthma, uncomplicated; F17.200 Nicotine dependence, unspecified, uncomplicated; F12.90 Cannabis use, unspecified, uncomplicated; Z88.7 Allergy status to serum and vaccine; Z20.822 Contact with and (suspected) exposure to COVID-19
CPT/HCPCS: 82075; 36415; 80048; 85025; 80306; 87635; 99285; 96372; J3486

== ENCOUNTER 2022-10-27 05:32 | Emergency (ER) | payer OTHER ==
[2022-10-27] MEDS ORDERED: ACETAMINOPHEN TAB 500 MG TAB PO STA (06:21)
[2022-10-27] MEDS ORDERED: IBUPROFEN 600 MG TAB PO STA (06:21)
--- NOTE | 2022-10-27 06:35 | ED ---
General Adult HPI - General Chief complaint: Headache Stated complaint: Headache Time Seen by Provider: 10/27/22 06:00 Source: patient, RN notes reviewed Mode of arrival: ambulatory Limitations: no limitations - History of Present Illness Initial comments: 27-year-old male presents emergency Department with chief complaint of headache, congestion. Patient states symptoms started yesterday morning. Patient states has not taken recent, Motrin. Patient complains of mild body aches minimal sore throat no ear pain. Patient's had no sick contacts symptoms are worse when he leans forward denies any neck pain or neck stiffness. He has mild facial pressure. Patient states he has a history migraine headaches. Patient denies any GI symptoms denies nausea and diarrhea constipation. - Related Data Previous Rx's Medication Instructions Recorded Amoxic-Pot Clav 875-125Mg 1 tab PO Q12HR #20 tab 10/27/22 [Augmentin 875-125] Allergies Allergy/AdvReac Type Severity Reaction Status Date / Time pertussis vaccine,adsorbed Allergy Unknown Verified 10/27/22 05:39 Review of Systems ROS Statement: Those systems with pertinent positive or pertinent negative responses have been documented in the HPI. ROS Other: All systems not noted in ROS Statement are negative. Past Medical History Past Medical History: Asthma History of Any Multi-Drug Resistant Organisms: None Reported Past Surgical History: No Surgical Hx Reported Past Anesthesia/Blood Transfusion Reactions: No Reported Reaction Past Psychological History: Schizophrenia Smoking Status: Current every day smoker Past Alcohol Use History: None Reported Past Drug Use History: Marijuana General Exam Limitations: no limitations General appearance: alert, in no apparent distress Head exam: Present: atraumatic, normocephalic, normal inspection Eye exam: Present: normal appearance, PERRL, EOMI. Absent: scleral icterus, conjunctival injection, periorbital swelling ENT exam: Present: normal exam, normal oropharynx, mucous membranes moist Neck exam: Present: normal inspection, full ROM. Absent: tenderness, meningismus, lymphadenopathy Respiratory exam: Present: normal lung sounds bilaterally. Absent: respiratory distress, wheezes, rales, rhonchi, stridor Cardiovascular Exam: Present: regular rate, normal rhythm, normal heart sounds. Absent: systolic murmur, diastolic murmur, rubs, gallop, clicks Neurological exam: Present: alert, oriented X3, CN II-XII intact, reflexes normal. Absent: motor sensory deficit Course Vital Signs 10/27/22 05:39 Temperature 99.3 F Pulse Rate 101 H Respiratory 18 Rate Blood Pressure 134/102 O2 Sat by Pulse 97 Oximetry Medical Decision Making - Medical Decision Making 27-year-old male presented for cough congestion and headache. Patient has increasing symptoms with forward leaning, concern for sinusitis. Patient discharged on antibiotics return parameters were discussed. Was pt. sent in by a medical professional or institution? @ -no Did you speak to anyone other than the patient for history? @ -no Did you review nursing and triage notes? @ -agree and reviewed Were old charts reviewed? @ -no Differential Diagnosis? @ -Headache, upper extremity infection, influenza, COVID-19, sinusitis, otitis media, this list is not all-inclusive EKG interpreted by me (3pts min.)? @ -no X-rays interpreted by me (1pt min.)? @ -no CT interpreted by me (1pt min.)? @ -no U/S interpreted by me (1pt. min.)? @ -no What testing was considered but not performed? (CT, X-rays, U/S, labs)? Why? @ no What meds were considered but not given? Why? @ -no Did you discuss the management of the patient with other professionals? @ -no Did you reconcile home meds? @ -no Was smoking cessation discussed for >3mins.? @ -no Was critical care preformed (if so, how long)? @ -no Were there social determinants of health that impacted care today? How? (Homelessness, low income, unemployed, alcoholism, drug addiction, transportation, low edu. Level, literacy, decrease access to med. care, [facility], rehab)? @ -no Was there de-escalation of care discussed even if they declined? (Discuss DNR or withdrawal of care, Hospice)? @ -no What co-morbidities impacted this encounter? (DM, HTN, Smoking, COPD, CAD, Cancer, CVA, Hep., AIDS, mental health diagnosis, sleep apnea, morbid obesity)? @ -no Was patient admitted / discharged? @ -discharged Undiagnosed new problem with uncertain prognosis? @ -No Drug Therapy requiring intensive monitoring for toxicity (Heparin, Nitro, Insulin, Cardizem)? @ -no Were any procedures done? @ -no Diagnosis/symptom? @ -Sinusitis Acute, or Chronic, or Acute on Chronic? @ -Acute Uncomplicated (without systemic symptoms) or Complicated (systemic symptoms)? @ -Uncomplicated Side effects of treatment? @ -no Exacerbation, Progression, or Severe Exacerbation] @ -no Poses a threat to life or bodily function? @ -No - Lab Data Lab Results 10/27/22 Range/Units 06:27 Influenza Type A (PCR) Not Detected (Not Detectd) Influenza Type B (PCR) Not Detected (Not Detectd) RSV (PCR) Not Detected (Not Detectd) SARS-CoV-2 (PCR) Not Detected (Not Detectd) Disposition Clinical Impression: Headache, Sinusitis Disposition: HOME SELF-CARE Condition: Stable Instructions (If sedation given, give patient instructions): Acute Headache (ED) Additional Instructions: Please return to the Emergency Department if symptoms worsen or any other concerns. Prescriptions: Amoxic-Pot Clav 875-125Mg [Augmentin 875-125] 1 tab PO Q12HR #20 tab Is patient prescribed a controlled substance at d/c from ED?: No Referrals: Catalina Hazel [facility] [Primary Care Provider] - 1-2 days Time of Disposition: 08:10
[2022-10-27 08:46] VITALS: BP 123/82; PULSE 78; RESP 16; TEMP 98.1
== END 2022-10-27 08:48 | disposition home or self-care (01) ==
LOC: EC 05:32
DX: J32.9 Chronic sinusitis, unspecified (principal); J45.909 Unspecified asthma, uncomplicated; F17.200 Nicotine dependence, unspecified, uncomplicated; F12.90 Cannabis use, unspecified, uncomplicated; Z88.7 Allergy status to serum and vaccine
CPT/HCPCS: 87636; 99284